=== PATIENT | female | born 1995 | race African-American/Black ===

== ENCOUNTER 2022-04-21 19:56 | Emergency (ER) | payer MEDICAID, SELFPAY ==
[2022-04-21 20:17] VITALS: BP 115/58; PULSE 78; RESP 16; TEMP 36.6; O2SAT 98
--- NOTE | 2022-04-21 20:28 | ED_ITS ---
HPI - General Adult General Time Seen by Provider: 20:28 Date Seen: 04/21/22 Chief complaint: Headache/Migraine Stated complaint: Migraine Time Seen by Provider: 04/21/22 20:13 Source: patient Mode of arrival: ambulatory Limitations: no limitations History of Present Illness HPI narrative: 26-year-old female who comes in today with headache. Patient has had an inte rmittent headache for the last 5 days. It is on the top of her head bilaterally. She has some lightheadedness with this. Nausea without vomiting. No photophobia or phonophobia. Says her is full full but no changes in hearing with some improvement although ibuprofen did not seem to help today. She does not have any injury. No fevers. Headache does not seem to be positional. Related Data Allergies Allergy/AdvReac Type Severity Reaction Status Date / Time bee venom protein (honey bee) Allergy Verified 04/21/22 20:22 Sulfa (Sulfonamide Allergy Verified 04/21/22 20:22 Antibiotics) Review of Systems Status of ROS: Reports: 10 or more systems reviewed and unremarkable except as noted in History and below PFSH PFSH Social History Smoking Status: Never smoker Do you use any of these nicotine containing products: None How often do you have a drink containing alcohol: never AUDIT-C Alcohol total score: 0 Non-prescribed substance use: denies use Exam Const: Vital Signs, click to edit/add: Vital Signs - 24 hr 04/21/22 20:17 Temperature 97.9 F Pulse Rate [Left B rachial] 78 Respiratory Rate 16 Blood Pressure [Le ft Upper Arm] 115/58 L Pulse Oximetry 98 Documenting provider has reviewed patient's vital signs: yes Common no rmals: no apparent distress, oriented x3, alert and well nourished HENMT: Common normals: normocephalic, head/scalp atraumatic, external ears normal and external nose normal Head and scalp: normocephalic and atraumatic Nose: external nose normal External ear: external ears normal Eye: Common normals: PERRL and conjunctivae normal Conjunctiva: conjunctiva(e) normal Pupil: PERRL Neck & C-Spine: Common normals: full ROM, no lymphadenopathy and supple Chest: Common normals: palpation of chest normal Resp: Common normals: normal respiratory effort and clear to auscultation bilaterally Auscultation: clear to auscultation bilaterally Cardio: Common normals: regular rate, regular rhythm and no murmurs Rate: regular rate Rhythm: regular rhythm GI: Common normals: Normal to inspection, nondistended, normoactive bowel sounds present, soft to palpation and non-tender Palpation: soft : Common normals: no CVA tenderness Bladder/kidney exam: no CVA tenderness Back & Pelvis: Common normals: no CVA tenderness and thoracic and lumbar spine normal to inspection Extremity: Common normals: normal to inspection, full ROM and no pedal edema Neuro: Common normals: oriented x3, CN's II-XII intact bilaterally and no focal motor deficits Sensorium/orientation: alert Psych: Common normals: mental status grossly normal Skin: Common normals: no rashes or lesions noted General skin exam: no rashes or lesions noted Course Vital Signs Vital signs: Initial Vital Signs Temperature 97.9 F 04/21/22 20:17 Temperature Source Temporal Artery Scan 04/21/22 20:17 Pulse Rate 78 04/21/22 20:17 Pulse Rhythm 04/21/22 20:17 Respiratory Rate 16 04/21/22 20:17 Blood Pressure 115/58 L 04/21/22 20:17 Blood Pressure Mean 77 04/21/22 20:17 Blood Pressure Position Sitting 04/21/22 20:17 Pulse Oximetry 98 04/21/22 20:17 Oxygen Delivery Method 04/21/22 20:17 Vital Signs Temperature 97.9 F 04/21/22 20:17 Pulse Rate 78 04/21/22 20:17 Respiratory Rate 16 04/21/22 20:17 Blood Pressure 115/58 L 04/21/22 20:17 Pulse Oximetry 98 04/21/22 20:17 Temperature 97.9 F 04/21/22 20:17 Pulse Rate 78 04/21/22 20:17 Respiratory Rate 16 04/21/22 20:17 Blood Pressure 115/58 L 04/21/22 20:17 Pulse Oximetry 98 04/21/22 20:17 Medical Decision Making MDM Narrative Medical decision making narrative: Patient seen and examined, prior records are reviewed. Differential diagnosis includes but not limited to migraine, intracranial pathology, meningitis, encephalitis. Patient presents with 5 days of headache. Intermittent, no red flag symptoms. No neurologic findings. Toradol, Benadryl, and Compazine are ordered. Patient has had prior similar headaches but this one has been more consistent. No indication imaging at this time. Medical Records Medical records reviewed: Yes I reviewed the patient's medical records Lab Data Lab results reviewed: Yes I reviewed the patient's lab results Discharge Plan Discharge Clinical Impression: Headache Patient Disposition: Home, Self-Care Condition: Improved Instructions: Acute Headache (ED) Additional Instructions: Follow-up with your primary care doctor this week Activity Level: No Restrictions Discharge Diet: Regular Stand Alone Forms: [employer] Info Instructions
[2022-04-21] MEDS: diphenhydrAMINE 50 MG/ML inj 25 MG IVP (20:49)
[2022-04-21] MEDS: KETOROLAC 15 MG/ML inj IVP (20:50)
[2022-04-21] MEDS: 0.9 % SODIUM CHLORIDE 500 ML 500 ML IV (20:52)
[2022-04-21] MEDS: dexAMETHasone 10 MG/ML inj IVP (20:52)
[2022-04-21] MEDS: PROCHLORPERAZINE 5 MG/ML VIAL 10 MG IV (20:53)
[2022-04-21 22:11] VITALS: BP 122/71; PULSE 68; RESP 16; TEMP 36.7
== END 2022-04-21 22:11 | disposition home or self-care (01) ==
LOC: ED 21:52
PROVIDERS: Emergency Provider Family Medicine
DX: R51.9 Headache, unspecified (principal)
CPT/HCPCS: 96374; 96375; 99283; 99284; J0780; J1100; J1200; J1885; J7120

== ENCOUNTER 2022-05-05 15:51 | Emergency (ER) | payer MEDICAID, SELFPAY ==
[2022-05-05 16:01] VITALS: BP 130/88; PULSE 95; RESP 18; TEMP 37; O2SAT 96; BMI 30.2
--- NOTE | 2022-05-05 16:07 | ED_ITS ---
HPI - General Adult General Time Seen by Provider: 16:07 Date Seen: 05/05/22 Chief complaint: Syncope/Fainted Stated complaint: syncope Time Seen by Provider: 05/05/22 16:07 Source: patient Mode of arrival: ambulatory Limitations: no limitations History of Present Illness HPI narrative: 26-year-old female who comes in today with a syncopal episode. He was cleaning, became lightheaded with ?spots in front of the eyes and passed out. Hit the back of her head on the floor. Denies preceding lightheadedness or chest pain. Denies recent cough, runny nose, sore throat, nausea, vomiting, diarrhea. Has been eating and drinking normally. Does note about 3 weeks of headache for which she was previously seen in the emergency department. This on the top of the head. No new medications. Denies possibility of with last Period six days ago. Related Data Home Medications Medication Instructions Recorded Confirmed fluticasone propionate 50 INTRANASAL 05/05/22 mcg/actuation nasal spray,suspension Allergies Allergy/AdvReac Type Severity Reaction Status Date / Time bee venom protein (honey bee) Allergy Verified 04/21/22 20:22 Sulfa (Sulfonamide Allergy Verified 04/21/22 20:22 Antibiotics) Review of Systems Status of ROS: Reports: 10 or more systems reviewed and unremarkable except as noted in History and below PFSH PFSH Social History Smoking Status: Never smoker Do you use any of these nicotine containing products: None How often do you have a drink containing alcohol: never AUDIT-C Alcohol total score: 0 Non-prescribed substance use: denies use Exam Const: Vital Signs, click to edit/add: Vital Signs - 24 hr 05/05/22 16:01 05/05/22 16:42 Temperature 98.6 F Pulse Rate [Right Pulse Oximeter] 95 68 Respiratory Rate 18 18 Blood Pressure [Ri ght Upper Arm] 130/88 105/61 Pulse Oximetry 96 98 Documenting provider has reviewed patient's vital signs: yes Common normals: no apparent distress, oriented x3, alert and well nourished HENMT: Common normals: normocephalic, head/scalp atraumatic, external ears normal and external nose normal Head and scalp: normocephalic and atraumatic Nose: external nose normal External ear: external ears normal Eye: Common normals: PERRL and conjunctivae normal Conjunctiva: conjunctiva(e) normal Pupil: PERRL Neck & C-Spine: Common normals: full ROM, no lymphadenopathy and supple Chest: Common normals: palpation of chest normal Resp: Common normals: normal respiratory effort and clear to auscultation b ilaterally Auscultation: clear to auscultation bilaterally Cardio: Common normals: regular rate, regular rhythm and no murmurs Rate: regular rate Rhythm: regular rhythm GI: Common normals: Normal to inspection, nondistended, normoactive bowel sounds present, soft to palpation and non-tender Palpation: soft : Common normals: no CVA tenderness Bladder/kidney exam: no CVA tenderness Back & Pelvis: Common normals: no CVA tenderness and thoracic and lumbar spine normal to inspection Extremity: Common normals: normal to inspection, full ROM and no pedal edema Neuro: Common normals: oriented x3, CN's II-XII intact bilaterally and no focal motor deficits Sensorium/orientation: alert Psych: Common normals: mental status grossly normal Skin: Common normals: no rashes or lesions noted General skin exam: no rashes or lesions noted Course Reevaluation(s) Reevaluation #1: Labs reassuring, EKG is normal. Heart rate improved after fluids. test is negative, head CT is negative. No acute cause for syncope nor acute injury related to syncope found based on testing today. Patient is stable for discharge. Time: 17:08 Vital Signs Vital signs: Initial Vital Signs Temperature 98.6 F 05/05/22 16:01 Temperature Source Temporal Artery Scan 05/05/22 16:01 Pulse Rate 95 05/05/22 16:01 Respiratory Rate 18 05/05/22 16:01 Blood Pressure 130/88 05/05/22 16:01 Blood Pressure Mean 102 05/05/22 16:01 Blood Pressure Position Sitting 05/05/22 16:01 Pulse Oximetry 96 05/05/22 16:01 Oxygen Delivery Method 05/05/22 16:01 Vital Signs Temperature 98.6 F 05/05/22 16:01 Pulse Rate 95 05/05/22 16:01 Respiratory Rate 18 05/05/22 16:01 Blood Pressure 130/88 05/05/22 16:01 Pulse Oximetry 96 05/05/22 16:01 Temperature 98.6 F 05/05/22 16:01 Pulse Rate 68 05/05/22 16:42 Respiratory Rate 18 05/05/22 16:42 Blood Pressure 105/61 05/05/22 16:42 Pulse Oximetry 98 05/05/22 16:42 Medical Decision Making MDM Narrative Medical decision making narrative: Patient seen and examined, prior records reviewed. Differential diagnosis includes but not limited to dysrhythmia, electrolyte disturbance, anemia, vasovagal episode, dehydration. Patient presents with syncopal episode. No preceding symptoms. She has had headache for about the last 3 weeks, no prior imaging for this. Labs, IV fluids, EKG, and head CT are ordered. Unlikely that this represents intracranial pathology and patient has no external signs of trauma, CT is ordered for ongoing headache for the last 3 weeks. Medical Records Medical records reviewed: Yes I reviewed the patient's medical records Lab Data Lab results reviewed: Yes I reviewed the patient's lab results Labs: Lab Results 05/05/22 05/05/22 05/05/22 Range/Units 16:30 16:30 16:30 WBC 4.99 (4.50-11.00) K/uL RBC 4.55 (4.00-5.20) m/uL Hgb 12.0 (12.0-16.0) gm/dL Hct 37.5 (33.0-51.0) % MCV 82 (80-100) fL MCH 26 (26-34) pg MCHC 32 (32-36) gm/dL RDW Coeff of [place] 13.4 (11.5-15.5) % Plt Count 331 (140-440) K/uL Neut % (Auto) 56.9 (42.0-72.0) % Lymph % (Auto) 35.9 (20-44) % [place] % (Auto) 5.6 (0.0-11.0) % Eos % (Auto) 0.4 (0.0-7.0) % Baso % (Auto) 0.6 (0.0-3.0) % Neut # (Auto) 2.84 (1.7-7.0) K/uL Lymph # (Auto) 1.79 (0.90-2.90) K/uL [place] # (Auto) 0.30 (0.00-0.90) K/UL Eos # (Auto) 0.02 (0.00-0.50) K/uL Baso # (Auto) 0.03 (0.00-0.30) K/uL Abs Immat Gran (auto) 0.03 (0.00-0.30) K/uL Sodium 138 (135-149) mmol/L Potassium 3.8 (3.6-5.1) mmol/L Chloride 104 (96-114) mmol/L Carbon Dioxide 31 (20-32) mmol/L BUN 9 (5-24) mg/dL Creatinine 0.7 (0.5-1.5) mg/dL Estimated Creat Clear 115.01 Estimated GFR 123 ml/min Glucose 97 (60-115) mg/dL Calcium 9.0 (8.4-10.6) mg/dL HCG, Qual Negative (Negative) Imaging Data CT scan - head: Attestation: I have reviewed the pertinent imaging results. My impression: No acute intracranial findings Radiologist's impression: Agree ECG Data Attestation: I personally reviewed and interpreted this ECG as follows: Prior ECG tracings: not available for review Interpretation: Performed at 4:39 p.m. demonstrates sinus rhythm with sinus arrhythmia rate 72, no acute ST elevations or depressions, normal intervals, normal axis, QTC 442, IL 132. No prior for comparison. Discharge Plan Discharge Clinical Impression: Headache, Syncope Patient Disposition: Home, Self-Care Condition: Stable Instructions: Syncope (ED) Additional Instructions: Follow-up with your primary care provider this week Activity Level: No Restrictions Discharge Diet: Regular Prescriptions: No Action fluticasone propionate 50 mcg/actuation spray,suspension INTRANASAL 0RF Label Comments: SHAKE LIQUID AND USE 1 TO 2 SPRAYS IN EACH NOSTRIL EVERY DAY Follow Up/Referrals: Provider,Not a Local [Referring] - Stand Alone Forms: [employer] Info Instructions
--- NOTE | 2022-05-05 16:18 | CRLHL7_ITS ---
For Patients: As a result of the Cures Act, medical imaging exams and procedure reports are released immediately into your electronic medical record. You may view this report before your referring provider. If you have questions, please contact your health care provider. DATE: 05/05/2022. CLINICAL HISTORY: Fall, syncope. TECHNIQUE: Standard helical CT image acquisition of the brain was performed. COMPARISON: None available. FINDINGS: There is no intracranial hemorrhage. No extra-axial collection, mass effect, or midline shift. [place]-white matter differentiation is preserved. Ventricles are normal in size and morphology for patient age. No displaced calvarial fracture. The orbits are unremarkable. The paranasal sinuses are unremarkable. The mastoid air cells are unremarkable. The soft tissues are unremarkable. IMPRESSION: No CT evidence of acute intracranial abnormality or closed head injury. Please note that all CT scans at this facility use dose modulation, iterative reconstruction, and/or weight-based dosing when appropriate to reduce radiation dose to as low as reasonably achievable. Dictated by Humberto Dai MD @ 05/05/2022 5:03:36 PM (Electronically Signed)
[2022-05-05 16:39] LABS: Basophils Absolute Auto 0.03 K/uL (0.00-0.30); Basophils Percent Auto 0.6 % (0.0-3.0); Eosinophils Absolute Auto 0.02 K/uL (0.00-0.50); Eosinophils Percent Auto 0.4 % (0.0-7.0); Hematocrit 37.5 % (33.0-51.0); Immature Granulocytes Abs Auto 0.03 K/uL (0.00-0.30); Lymphocytes Absolute Auto 1.79 K/uL (0.90-2.90); Lymphocytes Percent Auto 35.9 % (20-44); Mean Corpuscular HGB Conc 32 gm/dL (32-36); Mean Corpuscular Hemoglobin 26 pg (26-34); Mean Corpuscular Volume 82 fL (80-100); Monocytes Percent Auto 5.6 % (0.0-11.0); Neutrophils Absolute Auto 2.84 K/uL (1.7-7.0); Neutrophils Percent Auto 56.9 % (42.0-72.0); Platelet Count* 331 K/uL (140-440); RDW Coefficient of Variation % 13.4 % (11.5-15.5); Red Blood Count 4.55 m/uL (4.00-5.20); White Blood Count* 4.99 K/uL (4.50-11.00)
[2022-05-05 16:42] VITALS: BP 105/61; PULSE 68; RESP 18; O2SAT 98
[2022-05-05 16:45] LABS: Slide Review Reflex No
[2022-05-05] MEDS: 0.9 % SODIUM CHLORIDE 1000 ml 1,000 ML IV (16:45)
[2022-05-05 16:56] LABS: Chloride* 104 mmol/L (96-114); Potassium* 3.8 mmol/L (3.6-5.1); Sodium* 138 mmol/L (135-149)
[2022-05-05 16:59] LABS: Blood Urea Nitrogen* 9 mg/dL (5-24); Carbon Dioxide* 31 mmol/L (20-32); Creatinine* 0.7 mg/dL (0.5-1.5); Est. Creatinine Clearance* 115.01; Estimated Glomerular Filt Rate 123 ml/min; Glucose* 97 mg/dL (60-115); HCG Qualitative Serum* Negative (Negative)
[2022-05-05 17:00] VITALS: BP 100/60; PULSE 64; RESP 18; O2SAT 99
[2022-05-05 17:30] VITALS: BP 100/60; PULSE 62; O2SAT 97
== END 2022-05-05 18:07 | disposition home or self-care (01) ==
LOC: ED 16:54
PROVIDERS: Emergency Provider Family Medicine; PCP Physician Assistant
DX: R55 Syncope and collapse (principal); R51.9 Headache, unspecified
CPT/HCPCS: 36415; 70450; 80048; 84703; 85025; 93005; 96360; 99284; J7030

== ENCOUNTER 2022-12-30 16:02 | Emergency (ER) | payer MEDICAID, SELFPAY ==
[2022-12-30] VITALS (9 sets, daily range): BP systolic 106–120; BP diastolic 59–72; PULSE 77–95; RESP 16; TEMP 36.8; O2SAT 97–99; BMI 30.8
--- NOTE | 2022-12-30 17:13 | ED_ITS ---
HPI - General Adult General Chief complaint: Nausea/Vomiting Stated complaint: Nausea, upper stomach pain, 6wks Time Seen by Provider: 12/30/22 16:27 History of Present Illness HPI narrative: This 27-year-old female comes in reporting upper epigastric abdominal pain and where the past 2 or 3 days or so. She states that the pain seems to come and go. She has associated loss of appetite and nausea symptoms. She states that she is about 6 weeks and has not been to her 1st OB appointment yet. She states that the pain is not constant but comes and goes. She denies having any lower abdominal pain or vaginal discharge. She reports that food seems to make her symptoms worse. Related Data Home Medications Medication Instructions Recorded Confirmed fluticasone propionate 50 intranasal 05/05/22 mcg/actuation nasal spray,suspension fexofenadine 180 mg tablet 180 mg PO Q24H 06/20/22 12/30/22 (Evelia Allergy) sertraline 50 mg tablet 50 mg PO Q24H 06/20/22 12/30/22 Previous Rx's Medication Instructions Recorded ondansetron 4 mg disintegrating 4 mg PO Q6H #20 tabs 12/30/22 tablet pantoprazole 20 mg tablet,delayed 20 mg PO DAILY #5 tabs 12/30/22 release (Protonix) Allergies Allergy/AdvReac Type Severity Reaction Status Date / Time bee venom protein (honey bee) Allergy Severe Anaphylaxis Verified 12/30/22 16:31 Sulfa (Sulfonamide Allergy Unknown Verified 12/30/22 16:31 Antibiotics) Review of Systems Status of ROS: Reports: 10 or more systems reviewed and unremarkable except as noted in History and below Narrative: Constitutional: No fevers, no weight gain or loss. Eyes: No discharge. No vision changes. HENT: No congestion, no sore throat, no ear pain. Cardiovascular: No chest pain, no palpitations. Respiratory: No shortness of breath, no wheezes, no cough. Gastrointestinal: No vomiting, no diarrhea. Upper epigastric abdominal pain with associated nausea. Genitourinary: No dysuria, no hematuria. Musculoskeletal: Normal range of motion. Skin: No rashes, no pruritis. Neurological: No dizziness, weakness, sensory change, speech change. Endo/Heme/Allergies: No bruising or bleeding. No polydipsia. Pysch: no suicidality, no anxiety, no insomnia. All other systems reviewed and are negative. PFSH PFS Social History Smoking Status: Former smoker Do you use any of these nicotine containing products: None Second hand tobacco smoke exposure: No How often do you have a drink containing alcohol: never AUDIT-C Alcohol total score: 0 Non-prescribed substance use: denies use Exam Narrative: Exam Narrative: Constitutional: Well-developed, well-nourished, no acute distress. HEENT: Normocephalic, atraumatic. Neck: Normal range of motion. Nontender. Supple. Heart: Regular. No murmurs. Normal rate. Intact distal pulses. Lungs: Clear to auscultation. No chest discomfort. No wheezes, rhonchi, or rales. Abdomen: Normal bowel sounds. Mild tenderness in the upper epigastric region. No rebound tenderness. Genitalia: Deferred. Back: No midline tenderness. Normal range of motion. Extremities: Normal range of motion. No injury. Skin: Intact. No rash. Warm. No erythema or pallor. Neurologic: No altered sensation. No weakness. Alert and oriented. Psychiatric: No suicidality. No anxiety or depression. No insomnia. Nursing notes and vitals signs are reviewed. Const: Vital Signs, click to edit/add: Vital Signs - 24 hr 12/30/22 16:25 Temperature 98.2 F Pulse Rate [Pulse Oximeter] 81 Respiratory Rate 16 Blood Pressure [Le ft Upper Arm] 110/59 L Pulse Oximetry 98 Oxygen Delivery Me thod Room Air Course Vital Signs Vital signs: Initial Vital Signs Temperature 98.2 F 12/30/22 16:25 Temperature Source Temporal Artery Scan 12/30/22 16:25 Pulse Rate 81 12/30/22 16:25 Respiratory Rate 16 12/30/22 16:25 Blood Pressure 110/59 L 12/30/22 16:25 Blood Pressure Mean 76 12/30/22 16:25 Blood Pressure Position Supine 12/30/22 16:25 Pulse Oximetry 98 12/30/22 16:25 Oxygen Delivery Method Room Air 12/30/22 16:25 Vital Signs Temperature 98.2 F 12/30/22 16:25 Pulse Rate 81 12/30/22 16:25 Respiratory Rate 16 12/30/22 16:25 Blood Pressure 110/59 L 12/30/22 16:25 Pulse Oximetry 98 12/30/22 16:25 Oxygen Delivery Method Room Air 12/30/22 16:25 Temperature 98.2 F 12/30/22 16:25 Pulse Rate 81 12/30/22 16:25 Respiratory Rate 16 12/30/22 16:25 Blood Pressure 110/59 L 12/30/22 16:25 Pulse Oximetry 98 12/30/22 16:25 Oxygen Delivery Method Room Air 12/30/22 16:25 Medical Decision Making MDM Narrative Medical decision making narrative: This patient is approximately 6 weeks . She reports intermittent upper epigastric pain with associated nausea. She does arrive with normal vital signs and currently her exam is rather benign. I did use bedside ultrasound to evaluate her gallbladder and saw normal anatomy with no sign of gallbladder disease. I did also take a quick look at her uterus which does show an intrauterine gestational sac. I did discuss other lab and imaging options with the patient which were declined in a process of shared decision making. The patient did receive a prescription for Protonix and Zofran. I advised her to follow-up for her 1st OB appointment or return if worsening symptoms happen. Discharge Plan Discharge Clinical Impression: , Abdominal pain Patient Disposition: Home, Self-Care Condition: Stable Additional Instructions: Take medication as needed and indicated. Follow up with MD for 1st OB appoin tment. Return if worsening symptoms happen. Prescriptions: New pantoprazole [Protonix] 20 mg tablet,delayed release (DR/EC) 20 mg PO DAILY Qty: 5 2RF ondansetron 4 mg tablet,disintegrating 4 mg PO Q6H Qty: 20 0RF No Action sertraline 50 mg tablet 50 mg PO Q24H fexofenadine [Evelia Allergy] 180 mg tablet 180 mg PO Q24H fluticasone propionate 50 mcg/actuation spray,suspension INTRANASAL Hold Instructions: Order Change Patient Comments: SHAKE LIQUID AND USE 1 TO 2 SPRAYS IN EACH NOSTRIL EVERY DAY Follow Up/Referrals: Giselle Ruiz PA [Primary Care Provider] - Stand Alone Forms: [facility] Info Instructions Procedures Ultrasound Biliary exam #1: Anatomical areas examined: gallbladder, long and short axis Indications: RUQ/epigastric pain Exam type: limited abdominal ultrasound; RUQ Impression: normal exam Description/Findings: No sign of gallbladder disease.
== END 2022-12-30 17:51 | disposition home or self-care (01) ==
PROVIDERS: Emergency Provider Emergency Medicine Emergency Medical Services; PCP Physician Assistant
DX: R10.13 Epigastric pain (principal); Z3A.01 Less than 8 weeks gestation of pregnancy
CPT/HCPCS: 76705; 99283; 99284

== ENCOUNTER 2023-01-01 23:19 | Emergency (ER) | payer MEDICAID, SELFPAY ==
[2023-01-01 23:27] VITALS: BP 133/81; PULSE 89; RESP 18; TEMP 36.7; O2SAT 99; BMI 31.0
[2023-01-01 23:30] VITALS: O2SAT 99
[2023-01-02] MEDS: ONDANSETRON 2 MG/ML inj 4 MG IVP (00:02)
[2023-01-02] MEDS: 0.9 % SODIUM CHLORIDE 1000 ml 1,000 ML IV (00:02)
[2023-01-02] MEDS: PANTOPRAZOLE SODIUM 40 MG INJ IVP (00:05)
--- NOTE | 2023-01-02 00:05 | ED.GENADULT ---
HPI - General Adult General Time Seen by Provider: 00:05 Date Seen: 01/02/23 Chief complaint: Nausea/Vomiting Stated complaint: 6wks , vomiting blood Time Seen by Provider: 01/01/23 23:57 Source: patient, family, RN notes reviewed and old records reviewed Mode of arrival: ambulatory Limitations: no limitations History of Present Illness HPI narrative: 27-year-old who presents today with vomiting. Patient was seen a couple days ago with nausea and abdominal pain, at that time was given fluids and Zofran with improvement of symptoms. Labs including basic panel and CBC done at that time were reassuring, bedside ultrasound demonstrated normal appearing gallbladder and intrauterine gestational sac. Patient presents today with vomiting with a small amount of blood in the emesis. Vomiting started about an hour prior to coming emergency department. She took Zofran this morning but nothing this evening. She notes that she was constipated but took a laxative and has had a bowel movement today. She does not have any upper abdominal pain or right-sided abdominal pain, does have some generalized abdominal pain that she relates to vomiting. Denies vaginal bleeding. She was also prescribed Protonix at her last visit has been taking that daily Related Data Home Medications Medication Instructions Recorded Confirmed sertraline 50 mg tablet 50 mg PO Q24H 06/20/22 01/01/23 Previous Rx's Medication Instructions Recorded ondansetron 4 mg disintegrating 4 mg PO Q6H #20 tabs 12/30/22 tablet pantoprazole 20 mg tablet,delayed 20 mg PO DAILY #5 tabs 12/30/22 release (Protonix) pantoprazole 40 mg tablet,delayed 40 mg PO DAILY #30 tabs 01/02/23 release (Protonix) sucralfate 1 gram tablet (Carafate) 1 g PO QID #20 tabs 01/02/23 Allergies Allergy/AdvReac Type Severity Reaction Status Date / Time bee venom protein (honey bee) Allergy Severe Anaphylaxis Verified 01/01/23 23:31 Sulfa (Sulfonamide Allergy Unknown Runs in Verified 01/01/23 23:31 Antibiotics) the Family Review of Systems Status of ROS: Reports: 10 or more systems reviewed and unremarkable except as noted in History and below [facility] Medical History (Updated 01/02/23 @ 00:33 by Nick Bolaños RN) Depression ?F32.A - Depression, unspecified (ICD-10) Migraine headache ?G43.909 - Migraine, unspecified, not intractable, without status migrainosus (ICD-10) STD (sexually transmitted disease) ?A64 - Unspecified sexually transmitted disease (ICD-10) Tibia/fibula fracture ?S82.209A - Unspecified fracture of shaft of unspecified tibia, initial encounter for closed fracture (ICD-10) ?S82.409A - Unspecified fracture of shaft of unspecified fibula, initial encounter for closed fracture (ICD-10) Social History Smoking Status: Former smoker Do you use any of these nicotine containing products: None Second hand tobacco smoke exposure: No How often do you have a drink containing alcohol: never How often do you have six or more drinks on one occasion: Never AUDIT-C Alcohol total score: 0 Non-prescribed substance use: denies use service: No Exam Narrative: Exam Narrative: General: Well-developed and well-nourished, no acute distress Head: Atraumatic and normocephalic Eyes: Pupils are equal reactive, extraocular motions intact, conjunctiva clear ENT: External nose and ears are normal, posterior pharynx without erythema or exudate Neck: No midline cervical tenderness, full spontaneous range of motion the neck, trachea midline, no adenopathy Heart: Regular rate and rhythm no murmurs or thrills Lungs: Clear to auscultation bilaterally without wheezes or crackles Abdomen: Soft, nontender, nondistended with active bowel sounds Musculoskeletal: No tenderness, deformity, or edema Neurologic: Awake, alert, and oriented x3, no gross focal neurologic deficits, cranial nerves intact as tested Psych: Mood and affect are appropriate Skin: No rashes Const: Vital Signs, click to edit/add: Vital Signs - 24 hr 01/01/23 23:27 01/02/23 00:09 01/02/23 00:36 Temperature 98.0 F 98.0 F 98.0 F Pulse Rate 77 Pulse Rate [Right Pulse Oximeter] 89 77 Respiratory Rate 18 16 16 Blood Pressure 115/63 Blood Pressure [Ri ght Upper Arm] 133/81 115/63 Pulse Oximetry 99 98 98 Oxygen Delivery Me thod Room Air Room Air 01/02/23 00:32 01/02/23 01:01 01/01/23 23:30 Temperature Pulse Rate 79 78 Pulse Rate [Right Pulse Oximeter] Respiratory Rate 16 16 Blood Pressure 108/63 104/58 L Blood Pressure [Ri ght Upper Arm] Pulse Oximetry 99 99 99 Oxygen Delivery Tn thod Course Course Hospital Course: Patient seen and examined, reviewed of prior emergency department records from December 30 as summarized in HPI. Patient presents today with nausea and vomiting with small volume blood. She has had sensation of fullness in her throat. On exam here, vitals stable, awake and alert, no abdominal tenderness. Labs including basic panel, CBC, hepatic function panel, and lipase are ordered. Symptoms are most consistent with reflux and gastritis, consider also Rhea-Ladd tear. Cholecystitis, biliary colic, pancreatitis less likely but will evaluate for these discuss source of patient's abdominal discomfort and nausea. No vaginal bleeding or low abdominal pain and cramping to suggest miscarriage. Zofran, Protonix, fluids are ordered. If labs are reassuring, patient be discharged with twice daily Protonix, continue Zofran, and follow up with primary care. Reevaluation(s) Reevaluation #1: Labs independently interpreted by me demonstrates stable hemoglobin, reassuring basic panel, reassuring comprehensive panel, normal lipase. No evidence for biliary colic, pancreatitis, acute cholecystitis. Will complete fluids, plan to discharge with outpatient follow-up. Updated patient and significant other with results, diagnosis, and plan. She reports minimal improvement in her nausea after Zofran. Reglan IV will be given. Time: 00:41 Reevaluation #2: Feels better after Reglan and stable for discharge Time: 01:46 Vital Signs Vital signs: Initial Vital Signs Temperature 98.0 F 01/01/23 23:27 Temperature Source Temporal Artery Scan 01/01/23 23:27 Pulse Rate 89 01/01/23 23:27 Respiratory Rate 18 01/01/23 23:27 Blood Pressure 133/81 01/01/23 23:27 Blood Pressure Mean 98 01/01/23 23:27 Blood Pressure Position Sitting 01/01/23 23:27 Pulse Oximetry 99 01/01/23 23:27 Oxygen Delivery Method Room Air 01/01/23 23:27 Vital Signs Temperature 98.0 F 01/01/23 23:27 Pulse Rate 89 01/01/23 23:27 Respiratory Rate 18 01/01/23 23:27 Blood Pressure 133/81 01/01/23 23:27 Pulse Oximetry 99 01/01/23 23:27 Oxygen Delivery Method Room Air 01/01/23 23:27 Temperature 98.0 F 01/02/23 00:36 Pulse Rate 78 01/02/23 01:01 Respiratory Rate 16 01/02/23 01:01 Blood Pressure 104/58 L 01/02/23 01:01 Pulse Oximetry 99 01/02/23 01:01 Oxygen Delivery Method Room Air 01/02/23 00:36 Medical Decision Making Medical Records Medical records reviewed: Yes I reviewed the patient's medical records Lab Data Lab results reviewed: Yes I reviewed the patient's lab results Labs: Lab Results 01/02/23 Range/Units 00:05 WBC 9.40 (4.50-11.00) K/uL RBC 4.33 (4.00-5.20) m/uL Hgb 11.6 L (12.0-16.0) gm/dL Hct 35.6 (33.0-51.0) % MCV 82 (80-100) fL MCH 27 (26-34) pg MCHC 33 (32-36) gm/dL RDW Coeff of Juancho 13.1 (11.5-15.5) % Plt Count 331 (140-440) K/uL Neut % (Auto) 75.6 H (42.0-72.0) % Lymph % (Auto) 18.0 L (20-44) % Lucas % (Auto) 5.5 (0.0-11.0) % Eos % (Auto) 0.2 (0.0-7.0) % Baso % (Auto) 0.3 (0.0-3.0) % Neut # (Auto) 7.10 H (1.7-7.0) K/uL Lymph # (Auto) 1.70 (0.90-2.90) K/uL Lucas # (Auto) 0.50 (0.00-0.90) K/UL Eos # (Auto) 0.02 (0.00-0.50) K/uL Baso # (Auto) 0.03 (0.00-0.30) K/uL Sodium 135 (135-149) mmol/L Potassium 3.6 (3.6-5.1) mmol/L Chloride 103 (96-114) mmol/L Carbon Dioxide 21 (20-32) mmol/L BUN 7 (5-24) mg/dL Creatinine 0.6 (0.5-1.5) mg/dL Estimated Creat Clear 133.01 Estimated GFR 127 ml/min Glucose 99 (60-115) mg/dL Calcium 9.0 (8.4-10.6) mg/dL Total Bilirubin 0.5 (0.1-1.5) mg/dL Direct Bilirubin 0.1 (0.0-0.5) mg/dL AST 20 (12-35) U/L ALT 20 (4-35) U/L Alkaline Phosphatase 64 (40-150) U/L Total Protein 7.7 (6.0-8.3) g/dL Albumin 4.3 (3.3-5.0) g/dL Lipase 63 (23-300) U/L Discharge Plan Discharge Clinical Impression: , Gastroesophageal reflux disease Patient Disposition: Home, Self-Care Condition: Stable Instructions: Nausea and Vomiting in (ED), Diet for Stomach Ulcers and Gastritis (ED), GERD (Gastroesophageal Reflux Disease) (DC) Additional Instructions: Take high-dose Protonix daily as prescribed. Continue Zofran as needed. Take care of it for the next 5 days as well. Activity Level: No Restrictions Discharge Diet: Regular Prescriptions: New pantoprazole [Protonix] 40 mg tablet,delayed release (DR/EC) 40 mg PO DAILY Qty: 30 0RF sucralfate [Carafate] 1 gram tablet 1 g PO QID Qty: 20 0RF No Action sertraline 50 mg tablet 50 mg PO Q24H pantoprazole [Protonix] 20 mg tablet,delayed release (DR/EC) 20 mg PO DAILY Qty: 5 2RF ondansetron 4 mg tablet,disintegrating 4 mg PO Q6H Qty: 20 0RF Follow Up/Referrals: Giselle Ruiz PA [Primary Care Provider] - Stand Alone Forms: [employer] Info Instructions
[2023-01-02 00:09] VITALS: BP 115/63; PULSE 77; RESP 16; TEMP 36.7; O2SAT 98
[2023-01-02 00:15] LABS: Basophils Absolute Auto 0.03 K/uL (0.00-0.30); Basophils Percent Auto 0.3 % (0.0-3.0); Eosinophils Absolute Auto 0.02 K/uL (0.00-0.50); Eosinophils Percent Auto 0.2 % (0.0-7.0); Hematocrit 35.6 % (33.0-51.0); Hemoglobin* 11.6 gm/dL (12.0-16.0); Immature Granulocytes Abs Auto 0.04 K/uL (0.00-0.30); Immature Granulocytes Pct Auto 0.4 %; Mean Corpuscular HGB Conc 33 gm/dL (32-36); Mean Corpuscular Hemoglobin 27 pg (26-34); Mean Corpuscular Volume 82 fL (80-100); Monocytes Percent Auto 5.5 % (0.0-11.0); Neutrophils Percent Auto 75.6 % (42.0-72.0); Platelet Count* 331 K/uL (140-440); RDW Coefficient of Variation % 13.1 % (11.5-15.5); Red Blood Count 4.33 m/uL (4.00-5.20)
[2023-01-02 00:17] LABS: Slide Review Reflex No
--- OUTSIDE RECORDS SUMMARY | 2023-01-02 00:25 | XMS_ITS | Continuity of Care Document ---
Author Name Unknown Organization [facility] Address [address] [address] [place] [address] Phone Care Team Providers Care City Council Member Name Role Phone Unavailable Unavailable Unavailable Allergies, Adverse Reactions, Alerts Substance Reaction Status Criticality No Known allergies Medications Medication Instructions Dosage Effective Dates (start - stop) Status Comments Prilosec unknown take 20 mg every day - Active omeprazole 20 mg Cap, Delayed Release Take one capsule by mouth daily - Active Prilosec unknown every day - No Longer Active Procedures Procedure Date Offic Cons New/estab Mod-hi 60 07 Advance Directives Directive Yes / No Effective Date File Name No Information Encounters Encounter Description Practice Location Reason(s) For Visit Diagnoses Date Provider Providers Copied on Encounter Offic Cons New/estab Mod-hi 60 [facility], [address] [address], [place], [place], [id number], [place] tel:[phone] [facility] Vomiting Alone No Information Family History Family Member Type Diagnosis Age At Onset No Information Payers Payer name Insurance type Covered green party ID Authoriza tion(s) No Information Social History Type Description Quantity Date Captured Comments Sex Female Smoking Status No Information Chief Complaint And Reason For Visit No Information Reason For Referral Reason For Referral No Information Plan Of Treatment Date Type Action Status No Information History Of Present Illness Encounter Date Complaint History Of Prese nt Illness No Information Functional Status Date Functional Assessmen t No Information Medications Administered Medication Instructions Dosage Effective Dates (start - stop) Status Comments Prilosec unknown every day - No Longer Active Instructions Date Instruction Additional Infor mation No Information Assessments Type Assessment Date No Information Patient Care Teams Name Effective Dates (start - stop) Status Members No Information
[2023-01-02 00:31] LABS: Albumin* 4.3 g/dL (3.3-5.0); Chloride* 103 mmol/L (96-114)
[2023-01-02 00:32] VITALS: BP 108/63; PULSE 79; RESP 16; O2SAT 99
[2023-01-02 00:32] LABS: Potassium* 3.6 mmol/L (3.6-5.1); Sodium* 135 mmol/L (135-149)
[2023-01-02 00:33] LABS: Bilirubin Direct* 0.1 mg/dL (0.0-0.5); Bilirubin Total* 0.5 mg/dL (0.1-1.5); Total Protein* 7.7 g/dL (6.0-8.3)
[2023-01-02 00:34] LABS: Alanine Aminotransferase* 20 U/L (4-35); Alkaline Phosphatase* 64 U/L (40-150); Aspartate Amino Transferase* 20 U/L (12-35); Creatinine* 0.6 mg/dL (0.5-1.5); Est. Creatinine Clearance* 133.01; Estimated Glomerular Filt Rate 127 ml/min; Lipase* 63 U/L (23-300)
[2023-01-02 00:35] LABS: Blood Urea Nitrogen* 7 mg/dL (5-24); Carbon Dioxide* 21 mmol/L (20-32); Glucose* 99 mg/dL (60-115)
[2023-01-02 00:36] VITALS: BP 115/63; PULSE 77; RESP 16; TEMP 36.7; O2SAT 98
[2023-01-02] MEDS: METOCLOPRAMIDE HCL 5 MG/ML INJ 10 MG IVP (01:00)
[2023-01-02 01:01] VITALS: BP 104/58; PULSE 78; RESP 16; O2SAT 99
[2023-01-02 01:31] VITALS: BP 115/66; PULSE 84; RESP 16; O2SAT 96
[2023-01-02 01:54] VITALS: BP 115/63; PULSE 77; RESP 16; TEMP 36.7
== END 2023-01-02 01:55 | disposition home or self-care (01) ==
LOC: ED 01-02 00:23
PROVIDERS: Emergency Provider Family Medicine; PCP Physician Assistant
DX: O26.899 Other specified pregnancy related conditions, unspecified trimester (principal); K21.9 Gastro-esophageal reflux disease without esophagitis
CPT/HCPCS: 36415; 80048; 80076; 83690; 85025; 94761; 96374; 96375; 99284; C9113; J2405; J2765; J7030

== ENCOUNTER 2023-01-08 13:45 | Emergency (ER) | payer MEDICAID, SELFPAY ==
[2023-01-08 13:49] VITALS: BP 108/71; PULSE 85; RESP 18; TEMP 36.9; O2SAT 97; BMI 30.3
--- NOTE | 2023-01-08 14:34 | ED_ITS ---
HPI - General Adult General Chief complaint: Nausea/Vomiting Stated complaint: puking blood + 7weeks preg Time Seen by Provider: 01/08/23 13:50 History of Present Illness HPI narrative: This 27-year-old female is about 7 or 8 weeks and is having persistent vomiting. She also has some small amounts of blood in the vomit. She was seen twice in the past week or so in this emergency department with similar circumstances. Lab results and ultrasound images are all reassuring. The patient is taking Protonix, Zofran, and Reglan now. She does not report any lightheadedness. This is her 2nd . She is otherwise in good health. She does have a prior history of reflux symptoms. Related Data Home Medications Medication Instructions Recorded Confirmed sertraline 50 mg tablet 50 mg PO Q24H 06/20/22 01/01/23 Previous Rx's Medication Instructions Recorded ondansetron 4 mg disintegrating 4 mg PO Q6H #20 tabs 12/30/22 tablet pantoprazole 20 mg tablet,delayed 20 mg PO DAILY #5 tabs 12/30/22 release (Protonix) metoclopramide HCl 10 mg tablet 10 mg PO Q6H PRN nausea and 01/02/23 (Reglan) vomiting #20 tabs pantoprazole 40 mg tablet,delayed 40 mg PO DAILY #30 tabs 01/02/23 release (Protonix) sucralfate 1 gram tablet (Carafate) 1 g PO QID #20 tabs 01/02/23 ondansetron 4 mg disintegrating 4 mg PO Q6H #30 tabs 01/08/23 tablet prochlorperazine maleate 10 mg 10 mg PO Q6H PRN #15 tabs 01/08/23 tablet (Compazine) sucralfate 100 mg/mL oral 10 ml PO BID #400 mL 01/08/23 suspension (Carafate) Allergies Allergy/AdvReac Type Severity Reaction Status Date / Time bee venom protein (honey bee) Allergy Severe Anaphylaxis Verified 01/01/23 23:31 Sulfa (Sulfonamide Allergy Unknown Runs in Verified 01/01/23 23:31 Antibiotics) the Family Review of Systems Status of ROS: Reports: 10 or more systems reviewed and unremarkable except as noted in History and below Narrative: Constitutional: No fevers, no weight gain or loss. Eyes: No discharge. No vision changes. HENT: No congestion, no sore throat, no ear pain. Cardiovascular: No chest pain, no palpitations. Respiratory: No shortness of breath, no wheezes, no cough. Gastrointestinal: No abdominal pain, no diarrhea. Recurrent vomiting related to with some small amounts of blood present at times in the vomit. Genitourinary: No dysuria, no hematuria. Musculoskeletal: Normal range of motion. Skin: No rashes, no pruritis. Neurological: No dizziness, weakness, sensory change, speech change. Endo/Heme/Allergies: No bruising or bleeding. No polydipsia. Pysch: no suicidality, no anxiety, no insomnia. All other systems reviewed and are negative. [facility] Medical History (Updated 01/08/23 @ 14:52 by Jaron Jensen MD) Depression ?F32.A - Depression, unspecified (ICD-10) Migraine headache ?G43.909 - Migraine, unspecified, not intractable, without status migrainosus (ICD-10) STD (sexually transmitted disease) ?A64 - Unspecified sexually transmitted disease (ICD-10) Tibia/fibula fracture ?S82.209A - Unspecified fracture of shaft of unspecified tibia, initial encounter for closed fracture (ICD-10) ?S82.409A - Unspecified fracture of shaft of unspecified fibula, initial encounter for closed fracture (ICD-10) Social History Smoking Status: Former smoker Do you use any of these nicotine containing products: None Second hand tobacco smoke exposure: No How often do you have a drink containing alcohol: never How often do you have six or more drinks on one occasion: Never AUDIT-C Alcohol total score: 0 Non-prescribed substance use: denies use service: No Exam Narrative: Exam Narrative: Constitutional: Well-developed, well-nourished, no acute distress. HEENT: Normocephalic, atraumatic. Neck: Normal range of motion. Nontender. Supple. Heart: Regular. No murmurs. Normal rate. Intact distal pulses. Lungs: Clear to auscultation. No chest discomfort. No wheezes, rhonchi, or rales. Abdomen: Normal bowel sounds. Nontender. No rebound tenderness. Genitalia: Deferred. Back: No midline tenderness. Normal range of motion. Extremities: Normal range of motion. No injury. Skin: Intact. No rash. Warm. No erythema or pallor. Neurologic: No altered sensation. No weakness. Alert and oriented. Psychiatric: No suicidality. No anxiety or depression. No insomnia. Nursing notes and vitals signs are reviewed. Const: Vital Signs, click to edit/add: Vital Signs - 24 hr 01/08/23 13:49 Temperature 98.5 F Pulse Rate [Right Pulse Oximeter] 85 Respiratory Rate 18 Blood Pressure [Ri ght Upper Arm] 108/71 Pulse Oximetry 97 Oxygen Delivery Me thod Room Air Course Vital Signs Vital signs: Initial Vital Signs Temperature 98.5 F 01/08/23 13:49 Temperature Source Temporal Artery Scan 01/08/23 13:49 Pulse Rate 85 01/08/23 13:49 Respiratory Rate 18 01/08/23 13:49 Blood Pressure 108/71 01/08/23 13:49 Blood Pressure Mean 83 01/08/23 13:49 Blood Pressure Position Sitting 01/08/23 13:49 Pulse Oximetry 97 01/08/23 13:49 Oxygen Delivery Method Room Air 01/08/23 13:49 Vital Signs Temperature 98.5 F 01/08/23 13:49 Pulse Rate 85 01/08/23 13:49 Respiratory Rate 18 01/08/23 13:49 Blood Pressure 108/71 01/08/23 13:49 Pulse Oximetry 97 01/08/23 13:49 Oxygen Delivery Method Room Air 01/08/23 13:49 Temperature 98.5 F 01/08/23 13:49 Pulse Rate 85 01/08/23 13:49 Respiratory Rate 18 01/08/23 13:49 Blood Pressure 108/71 01/08/23 13:49 Pulse Oximetry 97 01/08/23 13:49 Oxygen Delivery Method Room Air 01/08/23 13:49 Medical Decision Making MDM Narrative Medical decision making narrative: This patient is about 7 weeks and has had persistent vomiting with some occasions of blood in the vomit. She arrives with normal vital signs. She has been taking Zofran and also has tried Reglan. She is also taking omeprazole. She did have evaluation for these same symptoms twice in the past week including labs and imaging. I did offer repeating these tests which the patient declined in a process of shared decision making. I did use bedside ultrasound to quickly reassure her with regard to her and took quick looks at her gallbladder, heart, and lungs. This was done as a screening test and no order was placed and no images were saved. The patient did received prescription for more tablets of Zofran. I also did prescribe Compazine. She has an OB appointment coming up within a week. Discharge Plan Discharge Clinical Impression: Hyperemesis gravidarum Patient Disposition: Home, Self-Care Condition: Stable Additional Instructions: Take medications as needed and indicated. Follow up with OB appointment as scheduled or return if worsening. Prescriptions: New prochlorperazine maleate [Compazine] 10 mg tablet 10 mg PO Q6H PRNQty: 15 0RF ondansetron 4 mg tablet,disintegrating 4 mg PO Q6H Qty: 30 0RF sucralfate [Carafate] 100 mg/mL suspension 10 ml PO BID Qty: 400 2RF No Action sertraline 50 mg tablet 50 mg PO Q24H pantoprazole [Protonix] 40 mg tablet,delayed release (DR/EC) 40 mg PO DAILY Qty: 30 0RF sucralfate [Carafate] 1 gram tablet 1 g PO QID Qty: 20 0RF metoclopramide HCl [Reglan] 10 mg tablet 10 mg PO Q6H PRN (Reason: nausea and vomiting) Qty: 20 0RF Rx Instructions: May take 1/2 or 1 tablet pantoprazole [Protonix] 20 mg tablet,delayed release (DR/EC) 20 mg PO DAILY Qty: 5 2RF ondansetron 4 mg tablet,disintegrating 4 mg PO Q6H Qty: 20 0RF Follow Up/Referrals: Giselle Ruiz PA [Primary Care Provider] - Stand Alone [facility]
== END 2023-01-08 15:05 | disposition home or self-care (01) ==
LOC: ED 15:00
PROVIDERS: Emergency Provider Emergency Medicine Emergency Medical Services; PCP Physician Assistant
DX: O21.0 Mild hyperemesis gravidarum (principal); Z3A.01 Less than 8 weeks gestation of pregnancy
CPT/HCPCS: 99282; 99283; 99284

== ENCOUNTER 2023-01-11 16:42 | Emergency (ER) | payer MEDICAID, SELFPAY ==
[2023-01-11] VITALS (15 sets, daily range): BP systolic 112–116; BP diastolic 61–76; PULSE 75–107; RESP 14; TEMP 36.3; O2SAT 96–99; BMI 29.9
--- NOTE | 2023-01-11 17:12 | ED_ITS ---
HPI - General Adult General Chief complaint: Nausea/Vomiting Stated complaint: 7 weeks, vomiting chunks of blood Time Seen by Provider: 01/11/23 16:43 Source: patient Mode of arrival: ambulatory Limitations: no limitations History of Present Illness HPI narrative: 27-year-old female making her 3rd visit to the emergency department in the past 9 days presents for continued complaints of nausea and vomiting, feeling like she is getting dehydrated again. She is currently 7-8 weeks as a . She admits that she has not been taking the Carafate as often as was recommended, but rather doubling up on a morning dose and not taking an evening dose. She was counseled now regarding this. She states that she started feeling increased nausea last night and has been vomiting frequently since 8:00 a.m. this morning, the past 9 hours. She has had frequent streaks of blood in her vomit, mucousy but it is increased today. She has not yet had a bowel movement. There was certainly no blood in her stools, no history of black tarry stools. Reports that she has been unable to hold down any solid food today. She is typically on a PPI, last dose was yesterday. She did not attempt to take her morning medications as she stated ?I would have just thrown them up?. She reports that she has been unable to hold down any fluids today and feels like she is getting dehydrated. She reports that she had nausea and vomiting for a few weeks in her 1st a few years ago. She now has a healthy 2-year-old in the remainder of her was uncomplicated. She has her upcoming visit on the of this month with the [facility] providers. She typically is prescribed Carafate twice daily, omeprazole once daily, Reglan as needed and she also has access to Zofran prescription. She did try taking Zofran under her tongue this morning at about 9:00 a.m. and it did not seem to help. No headache, no trauma or injury. She does not take any anticoagulants. She did not take any pictures of the blood in the vomit this morning but it was not denisha blood but rather small chunks of blood. No history of endoscopy. No fever, no trauma or injury. She has some mild epigastric discomfort but nothing in the right upper quadrant or lower abdomen. There is no vaginal bleeding. No history of bowel obstruction or GI surgeries. No dysuria. Past medical history notable for anxiety, does take a SSRI. No prior abdominal surgeries. Medications are reviewed, not taking exactly as would be recommended but these are noted. Socially with no pertinent travel or toxic exposures. ROS is notable for some fatigue but mainly for the nausea and vomiting and blood tinge as stated above. Otherwise denies times 12 systems. Related Data Home Medications Medication Instructions Recorded Confirmed sertraline 50 mg tablet 50 mg PO Q24H 06/20/22 01/11/23 Previous Rx's Medication Instructions Recorded ondansetron 4 mg disintegrating 4 mg PO Q6H #20 tabs 12/30/22 tablet metoclopramide HCl 10 mg tablet 10 mg PO Q6H PRN nausea and 01/02/23 (Reglan) vomiting #20 tabs prochlorperazine maleate 10 mg 10 mg PO Q6H PRN #15 tabs 01/08/23 tablet (Compazine) sucralfate 100 mg/mL oral 10 ml PO BID #400 mL 01/08/23 suspension (Carafate) Allergies Allergy/AdvReac Type Severity Reaction Status Date / Time bee venom protein (honey bee) Allergy Severe Anaphylaxis Verified 01/01/23 23:31 Sulfa (Sulfonamide Allergy Unknown Runs in Verified 01/01/23 23:31 Antibiotics) the Family [facility] Medical History (Updated 01/11/23 @ 17:56 by Trayn Clifton MD) Depression ?F32.A - Depression, unspecified (ICD-10) Migraine headache ?G43.909 - Migraine, unspecified, not intractable, without status migrainosus (ICD-10) STD (sexually transmitted disease) ?A64 - Unspecified sexually transmitted disease (ICD-10) Tibia/fibula fracture ?S82.209A - Unspecified fracture of shaft of unspecified tibia, initial encounter for closed fracture (ICD-10) ?S82.409A - Unspecified fracture of shaft of unspecified fibula, initial encounter for closed fracture (ICD-10) Social History Smoking Status: Former smoker Do you use any of these nicotine containing products: None Second hand tobacco smoke exposure: No How often do you have a drink containing alcohol: never How often do you have six or more drinks on one occasion: Never AUDIT-C Alcohol total score: 0 Non-prescribed substance use: denies use service: No Exam Const: Vital Signs, click to edit/add: Vital Signs - 24 hr 01/11/23 16:54 01/11/23 17:01 01/11/23 17:02 Temperature 97.4 F L Pulse Rate 96 107 H Pulse Rate [Right Pulse Oximeter] 97 Respiratory Rate 14 Blood Pressure 112/66 Blood Pressure [Ri ght Upper Arm] 116/76 Pulse Oximetry 97 97 96 Oxygen Delivery Me thod Room Air Room Air 01/11/23 17:16 01/11/23 17:30 01/11/23 17:32 Temperature Pulse Rate 92 80 96 Pulse Rate [Right Pulse Oximeter] Respiratory Rate Blood Pressure 112/62 Blood Pressure [Ri ght Upper Arm] Pulse Oximetry 99 99 97 Oxygen Delivery Me thod 01/11/23 17:45 01/11/23 18:00 Temperature Pulse Rate 80 86 Pulse Rate [Right Pulse Oximeter] Respiratory Rate Blood Pressure Blood Pressure [Ri ght Upper Arm] Pulse Oximetry 98 98 Oxygen Delivery Me thod Common normals: no apparent distress General appearance: cooperative and comfortable HENMT: Mouth: oral and palatal mucosa normal Throat: posterior oropharynx normal Eye: General eye: normal appearance of both eyes Resp: Common normals: normal respiratory effort and clear to auscultation bilaterally Effort & inspection: able to speak in complete sentences Auscultation: clear to auscultation bilaterally Cardio: Common normals: regular rate, regular rhythm, S1 normal heart sound, S2 normal heart sound, no murmurs and peripheral pulses 2+ throughout Rate: regular rate Rhythm: regular rhythm Heart sounds: S1 normal and S2 normal Peripheral pulses: pulses 2+ throughout GI: Other: Abdomen appears nondistended. The epigastrium is mildly tender to palpation but no severe tenderness. There is no tenderness to the right upper quadrant, lower abdomen. There are no obvious masses. Fundal height cannot be palpated. Extremity: Common normals: normal capillary refill and no pedal edema Neuro: Gait (neuro): normal gait Motor exam: strength 5/5 throughout and no movement abnormalities noted Psych: Activity/motor behavior: appropriate eye contact Insight: insight good Judgement: judgment good Course Vital Signs Vital signs: Initial Vital Signs Temperature 97.4 F L 01/11/23 16:54 Temperature Source Temporal Artery Scan 01/11/23 16:54 Pulse Rate 97 01/11/23 16:54 Respiratory Rate 14 01/11/23 16:54 Blood Pressure 116/76 01/11/23 16:54 Blood Pressure Mean 89 01/11/23 16:54 Blood Pressure Position Sitting 01/11/23 16:54 Pulse Oximetry 97 01/11/23 16:54 Oxygen Delivery Method Room Air 01/11/23 16:54 Vital Signs Temperature 97.4 F L 01/11/23 16:54 Pulse Rate 97 01/11/23 16:54 Respiratory Rate 14 01/11/23 16:54 Blood Pressure 116/76 01/11/23 16:54 Pulse Oximetry 97 01/11/23 16:54 Oxygen Delivery Method Room Air 01/11/23 16:54 Temperature 97.4 F L 01/11/23 16:54 Pulse Rate 86 01/11/23 18:00 Respiratory Rate 14 01/11/23 16:54 Blood Pressure 112/62 01/11/23 17:32 Pulse Oximetry 98 01/11/23 18:00 Oxygen Delivery Method Room Air 01/11/23 17:01 Medical Decision Making MDM Narrative Medical decision making narrative: Capillary refill normal, no tachycardia or hypotension. Do suspect that she has some degree of dehydration. Last to ED notes reviewed from less than 10 days ago. Reviewed recent labs, ultrasound has recently been performed as well. We discuss the utility of repeating these or not, she is agreeable to symptomatic management only. Counseled patient that I do want to see the emesis bag if she has more vomiting to determine if we need to do endoscopy or admit for observation. Will start 2 L of lactated Ringer's, no labs at this time, no imaging. IV Protonix, Zofran. If she tolerates this will dose Carafate as well. Upcoming visit in 10 days with Ob provider. Will re-evaluate after fluids. Update: Patient examined after 1 L of LR completed, has not had any vomiting in certainly no hematemesis in our ED. she is feeling a little better after Protonix and omeprazole, has held down the Carafate. Will finish the 2nd plan L of LR and then discharge. Counseled patient that I would like for her to start using her omeprazole every night preferably on an empty stomach, may take her vitamin at the same time. Stressed the importance of spacing out the Carafate twice daily. Take her Zofran every morning shortly after she wakes before attempting to eat or drink any additional food. She can continue the Reglan and Zofran throughout the day if needed. Continue to push fluids and follow up next week with her Ob provider as is planned. Discharge Plan Discharge Clinical Impression: Hyperemesis gravidarum Patient Disposition: Home, Self-Care Condition: Improved Instructions: Hyperemesis Gravidarum (ED) Additional Instructions: Hopefully things start to improve for you within the next couple of weeks. Keep your pending appointment with your Ob provider. I would like to make a couple of changes to her medications I think that this will help in the long run. First, I would like for you to switch your omeprazole to bedtime. Go ahead and take this to night before you go to bed. If taking it before your evening meal is better for you, you are welcome to take it then instead. I would like for you to take Zofran right away every morning when you wake up for the next 2 weeks. Remember that you can take this under your tongue and do not need to try to take additional food or water right away. If you think that you can tolerate it, I would then like for you to take the Carafate also known as sucralfate right away every morning also. Remember not to take a double dose. I would let the medication kick in for about 30 minutes and then attempt to take my sertraline and try some breakfast. Remember that you may continue taking Reglan or additional Zofran as needed throughout the day every 6-8 hours. Remember to take this sucralfate in the evenings as well. It is okay to take her vitamin and the omeprazole at the same time. You may continue to use Tylenol for discomfort. Prioritize fluids, soft bland foods as you are able. Urination is a good indication of hydration status. If you are drinking enough that you are urinating at least 4 times daily, you are likely doing okay. Come back to the emergency department if you are having severe, persistent bloody vomit, severe abdominal pain, heavy vaginal bleeding or are so lightheaded that you cannot stand. Activity Level: No Restrictions Discharge Diet: Regular Prescriptions: No Action sertraline 50 mg tablet 50 mg PO Q24H metoclopramide HCl [Reglan] 10 mg tablet 10 mg PO Q6H PRN (Reason: nausea and vomiting) Qty: 20 0RF Rx Instructions: May take 1/2 or 1 tablet ondansetron 4 mg tablet,disintegrating 4 mg PO Q6H Qty: 20 0RF prochlorperazine maleate [Compazine] 10 mg tablet 10 mg PO Q6H PRNQty: 15 0RF sucralfate [Carafate] 100 mg/mL suspension 10 ml PO BID Qty: 400 2RF Follow Up/Referrals: Giselle Ruiz PA [Primary Care Provider] - Stand Alone Forms: [facility] Info Instructions
[2023-01-11] MEDS: ONDANSETRON 2 MG/ML inj 4 MG IVP (17:21)
[2023-01-11] MEDS: PANTOPRAZOLE SODIUM 40 MG INJ IVP (17:21)
[2023-01-11] MEDS: LACTATED RINGERS 1000 ML 1,000 ML 2000 ML IV ×2 (17:21→18:27)
--- OUTSIDE RECORDS SUMMARY | 2023-01-11 17:35 | XMS_ITS | Continuity of Care Document ---
Author Name Unknown Organization [facility] Address [address] [address] [place] [address] Phone Care Team Providers Care Hand Winder Name Role Phone Unavailable Unavailable Unavailable Allergies, [...] on Encounter Offic Cons New/estab Mod-hi 60 [facility], [address] [address], [place], [place], [id number], [place] tel:[phone] Pediatric [facility] Vomiting Alone No Information Family History Family Member Type Diagnosis Age At Onset No Information Payers Payer name Insurance type Covered republican ID Authoriza tion(s) No Information Social History [...]
[2023-01-11] MEDS: SUCRALFATE 1 GM TABLET PO (18:01)
== END 2023-01-11 19:49 | disposition home or self-care (01) ==
PROVIDERS: Emergency Provider Family Medicine; PCP Physician Assistant
DX: O21.0 Mild hyperemesis gravidarum (principal); Z3A.01 Less than 8 weeks gestation of pregnancy
CPT/HCPCS: 96361; 96374; 96375; 99282; 99284; A9270; C9113; J2405; J7120

== ENCOUNTER 2023-01-14 20:27 | Emergency (ER) | payer MEDICAID, SELFPAY ==
[2023-01-14 22:10] VITALS: BP 119/81; PULSE 107; RESP 16; TEMP 36.6; O2SAT 98; BMI 29.7
--- NOTE | 2023-01-14 22:33 | ED.GENADULT ---
HPI - General Adult General Time Seen by Provider: 22:33 Date Seen: 01/14/23 Chief complaint: Nausea/Vomiting Stated complaint: Pu, 8 weeks , shaky Time Seen by Provider: 01/14/23 22:15 Source: patient and RN notes reviewed Mode of arrival: ambulatory Limitations: no limitations History of Present Illness HPI narrative: Patient is in her 1st trimester of with significant recurrent nausea vomiting. She has been in multiple times for IV fluids. She feels like she has not urinated maybe for 2 days. She can not keep anything down. She has Zofran, Compazine, Carafate at home. She states her mouth feels like cotton and is dry. She has an appointment with the agile coach to discuss termination due to her current symptoms. There is no fevers, no abdominal pain. Reviewed the in-depth last note from Dr. Clifton. Related Data Home Medications Medication Instructions Recorded Confirmed sertraline 50 mg tablet 50 mg PO Q24H 06/20/22 01/11/23 Previous Rx's Medication Instructions Recorded ondansetron 4 mg disintegrating 4 mg PO Q6H #20 tabs 12/30/22 tablet metoclopramide HCl 10 mg tablet 10 mg PO Q6H PRN nausea and 01/02/23 (Reglan) vomiting #20 tabs prochlorperazine maleate 10 mg 10 mg PO Q6H PRN #15 tabs 01/08/23 tablet (Compazine) sucralfate 100 mg/mL oral 10 ml PO BID #400 mL 01/08/23 suspension (Carafate) Allergies Allergy/AdvReac Type Severity Reaction Status Date / Time bee venom protein (honey bee) Allergy Severe Anaphylaxis Verified 01/01/23 23:31 Sulfa (Sulfonamide Allergy Unknown Runs in Verified 01/01/23 23:31 Antibiotics) the Family Review of Systems Status of ROS: Reports: 6 or more systems reviewed and unremarkable except as noted in History and below [facility] Medical History (Updated 01/14/23 @ 22:46 by Trang King MD) Depression ?F32.A - Depression, unspecified (ICD-10) Migraine headache ?G43.909 - Migraine, unspecified, not intractable, without status migrainosus (ICD-10) STD (sexually transmitted disease) ?A64 - Unspecified sexually transmitted disease (ICD-10) Tibia/fibula fracture ?S82.209A - Unspecified fracture of shaft of unspecified tibia, initial encounter for closed fracture (ICD-10) ?S82.409A - Unspecified fracture of shaft of unspecified fibula, initial encounter for closed fracture (ICD-10) Social History Smoking Status: Former smoker Do you use any of these nicotine containing products: None Second hand tobacco smoke exposure: No How often do you have a drink containing alcohol: never How often do you have six or more drinks on one occasion: Never AUDIT-C Alcohol total score: 0 Non-prescribed substance use: denies use service: No Exam Const: Vital Signs, click to edit/add: Vital Signs - 24 hr 01/14/23 22:10 Temperature 97.9 F Pulse Rate [Left P ulse Oximeter] 107 H Respiratory Rate 16 Blood Pressure [Ri ght Upper Arm] 119/81 Pulse Oximetry 98 Oxygen Delivery Me thod Room Air 27-year-old female that looks tired in like she does not feel well. Pupils equal round reactive to light sclera clear. Oropharynx with dry mucosa but speech is normal, no lesions noted. Dentition good repair. Neck is supple, no cervical adenopathy or thyromegaly masses or nodules. Lungs are clear, CV regular rhythm but slightly fast. Normal S1 and S2. No murmur. Abdomen is soft, nondistended, nontender. Patient is ambulatory in the ED of her own accor Documenting provider has reviewed patient's vital signs: yes Course Course Hospital Course: Discussed with patient we will stab lotion IV. Will plan on 2 L of lactated Ringer's, will try to help her nausea was some IV Compazine. She is in agreement the plan. She states she just went home and threw up after IV Zofran last time she was in. She will follow-up with OB tomorrow. I do not feel that further work up is necessary at this time given that there are no significant changes from her current symptoms. Vital Signs Vital signs: Initial Vital Signs Temperature 97.9 F 01/14/23 22:10 Temperature Source Temporal Artery Scan 01/14/23 22:10 Pulse Rate 107 H 01/14/23 22:10 Respiratory Rate 16 01/14/23 22:10 Blood Pressure 119/81 01/14/23 22:10 Blood Pressure Mean 93 01/14/23 22:10 Blood Pressure Position Sitting 01/14/23 22:10 Pulse Oximetry 98 01/14/23 22:10 Oxygen Delivery Method Room Air 01/14/23 22:10 Vital Signs Temperature 97.9 F 01/14/23 22:10 Pulse Rate 107 H 01/14/23 22:10 Respiratory Rate 16 01/14/23 22:10 Blood Pressure 119/81 01/14/23 22:10 Pulse Oximetry 98 01/14/23 22:10 Oxygen Delivery Method Room Air 01/14/23 22:10 Temperature 97.9 F 01/14/23 22:10 Pulse Rate 107 H 01/14/23 22:10 Respiratory Rate 16 01/14/23 22:10 Blood Pressure 119/81 01/14/23 22:10 Pulse Oximetry 98 01/14/23 22:10 Oxygen Delivery Method Room Air 01/14/23 22:10 Critical Care Time Critical Care Time Critical Care Time: No Discharge Plan Discharge Clinical Impression: Hyperemesis gravidarum Patient Disposition: Home, Self-Care Condition: Stable Instructions: Hyperemesis Gravidarum (ED) Additional Instructions: Go home and try to rest. Follow up with OB appointment tomorrow as planned. Prescriptions: No Action sertraline 50 mg tablet 50 mg PO Q24H metoclopramide HCl [Reglan] 10 mg tablet 10 mg PO Q6H PRN (Reason: nausea and vomiting) Qty: 20 0RF Rx Instructions: May take 1/2 or 1 tablet ondansetron 4 mg tablet,disintegrating 4 mg PO Q6H Qty: 20 0RF prochlorperazine maleate [Compazine] 10 mg tablet 10 mg PO Q6H PRNQty: 15 0RF sucralfate [Carafate] 100 mg/mL suspension 10 ml PO BID Qty: 400 2RF Follow Up/Referrals: Giselle Ruiz PA [Primary Care Provider] - Stand Alone Forms: [facility] Info Instructions
--- OUTSIDE RECORDS SUMMARY | 2023-01-14 22:44 | XMS_ITS | Continuity of Care Document ---
Author Name Unknown Organization [facility] Address [address] [address] [place] [address] Phone Care Team Providers Care Cross Country And Track And Field Coach Name Role Phone Unavailable Unavailable Unavailable Allergies, [...] on Encounter Offic Cons New/estab Mod-hi 60 [facility], [address] [address], [place], [place], [id number], [place] tel:[phone] Pediatric Clinic Vomiting Alone No Information Family [...]
[2023-01-14] MEDS: LACTATED RINGERS 1000 ML 1,000 ML IV ×2 (22:54→22:55)
[2023-01-14] MEDS: PROCHLORPERAZINE 5 MG/ML VIAL IV (22:55)
== END 2023-01-15 00:50 | disposition home or self-care (01) ==
PROVIDERS: Emergency Provider Family Medicine; PCP Physician Assistant
DX: O21.0 Mild hyperemesis gravidarum (principal); Z3A.08 8 weeks gestation of pregnancy
CPT/HCPCS: 96374; 99283; 99284; J0780; J7120

== ENCOUNTER 2023-05-13 10:19 | Emergency (ER) | payer MEDICAID, SELFPAY ==
[2023-05-13 10:21] VITALS: BP 113/74; PULSE 92; RESP 16; TEMP 36.3; O2SAT 98; BMI 33.9
--- NOTE | 2023-05-13 10:44 | ED_ITS ---
HPI - General Adult General Chief complaint: Nausea/Vomiting Stated complaint: 6 weeks , vomiting Time Seen by Provider: 05/13/23 10:25 Source: patient Mode of arrival: ambulatory Limitations: no limitations History of Present Illness HPI narrative: 27-year-old female almost 7 weeks gestation presents with 3 days of nonstop vomiting. States that she has had hyperemesis gravidarum with previous pregnancies. Had specks dark material in her vomit this morning this concerned her. She denies feeling lightheaded or dizzy. She does have mild abdominal discomfort is diffuse she believes is from the dry heaving. She has been urinating normally, no diarrhea. No fevers or chills. No vaginal bleeding or discharge. No pain in her chest. Related Data Home Medications Medication Instructions Recorded Confirmed sertraline 50 mg tablet 50 mg PO Q24H 06/20/22 05/13/23 Previous Rx's Medication Instructions Recorded ondansetron 4 mg disintegrating 4 mg PO Q6H #20 tabs 12/30/22 tablet metoclopramide HCl 10 mg tablet 10 mg PO Q6H PRN nausea and 01/02/23 (Reglan) vomiting #20 tabs prochlorperazine maleate 10 mg 10 mg PO Q6H PRN #15 tabs 01/08/23 tablet (Compazine) sucralfate 100 mg/mL oral 10 ml PO BID #400 mL 01/08/23 suspension (Carafate) ondansetron 4 mg disintegrating 4 mg PO Q6H PRN nausea and 05/13/23 tablet vomiting #20 tabs Allergies Allergy/AdvReac Type Severity Reaction Status Date / Time bee venom protein (honey bee) Allergy Severe Anaphylaxis Verified 01/01/23 23:31 Sulfa (Sulfonamide Allergy Unknown Runs in Verified 01/01/23 23:31 Antibiotics) the Family Review of Systems Status of ROS: Reports: 10 or more systems reviewed and unremarkable except as noted in History and below [facility] Medical History History of vaginal delivery (02/14/20) Observed seizure-like activity (2010) ?R56.9 - Unspecified convulsions (ICD-10) Tibia/fibula fracture ?S82.209A - Unspecified fracture of shaft of unspecified tibia, initial encounter for closed fracture (ICD-10) ?S82.409A - Unspecified fracture of shaft of unspecified fibula, initial encounter for closed fracture (ICD-10) STD (sexually transmitted disease) ?A64 - Unspecified sexually transmitted disease (ICD-10) Social History Smoking Status: Former smoker Do you use any of these nicotine containing products: None Second hand tobacco smoke exposure: No How often do you have a drink containing alcohol: never How often do you have six or more drinks on one occasion: Never AUDIT-C Alcohol total score: 0 Non-prescribed substance use: denies use service: No Exam Narrative: Exam Narrative: Well-nourished well-developed patient in no acute distress. Alert and oriented. Answers questions appropriately. Mood and affect are appropriate. Thoughts are goal oriented and rational. No tangential or magical thinking noted. Patient speaks in full sentences without needing to catch her breath. HEENT: Normocephalic atraumatic. Pupils are equally round reactive to light. Extraocular muscles are intact. Conjunctivae are moist without any icterus noted. Moist mucous membranes. No pallor noted. Posterior pharynx is normal. Neck is soft without any lymphadenopathy or thyromegaly. No masses are appreciated. Cardiovascular: Heart is regular rate and rhythm S1 and S2 are present without any murmurs. Lungs: Clear to auscultation bilaterally no wheezes rhonchi or rales are appreciated. Patient takes deep breaths without any discomfort. Abdomen: Soft and nontender nondistended with normal bowel sounds. No guarding or rebound. No masses or organomegaly appreciated. Minimal discomfort with palpation. Extremities: Bilateral lower extremities are without edema. Normal DP and PT pulses. Skin: Well perfused without any obvious rashes. Warm dry and intact. Patient is not diaphoretic. Const: Vital Signs, click to edit/add: Vital Signs - 24 hr 05/13/23 10:21 Temperature 97.3 F L Pulse Rate [Pulse Oximeter] 92 Respiratory Rate 16 Blood Pressure [Ri ght Upper Arm] 113/74 Pulse Oximetry 98 Oxygen Delivery Me thod Room Air Course Course Hospital Course: IV established, patient was started on normal saline and Zofran. Lab work unremarkable. No episodes of vomiting or dry heaving while in the ER. Patient feeling significantly better after normal saline and Zofran. Vital Signs Vital signs: Initial Vital Signs Temperature 97.3 F L 05/13/23 10:21 Temperature Source Temporal Artery Scan 05/13/23 10:21 Pulse Rate 92 05/13/23 10:21 Respiratory Rate 16 05/13/23 10:21 Blood Pressure 113/74 05/13/23 10:21 Blood Pressure Mean 87 05/13/23 10:21 Pulse Oximetry 98 05/13/23 10:21 Oxygen Delivery Method Room Air 05/13/23 10:21 Vital Signs Temperature 97.3 F L 05/13/23 10:21 Pulse Rate 92 05/13/23 10:21 Respiratory Rate 16 05/13/23 10:21 Blood Pressure 113/74 05/13/23 10:21 Pulse Oximetry 98 05/13/23 10:21 Oxygen Delivery Method Room Air 05/13/23 10:21 Temperature 97.3 F L 05/13/23 10:21 Pulse Rate 92 05/13/23 10:21 Respiratory Rate 16 05/13/23 10:21 Blood Pressure 113/74 05/13/23 10:21 Pulse Oximetry 98 05/13/23 10:21 Oxygen Delivery Method Room Air 05/13/23 10:21 Medical Decision Making MDM Narrative Medical decision making narrative: 27-year-old female vomiting in . Will send the patient home with oral dissolving Zofran and have her follow-up as needed. Lab Data Lab results reviewed: Yes I reviewed the patient's lab results Labs: Lab Results 05/13/23 05/13/23 05/13/23 Range/Units 11:00 11:00 11:00 WBC 8.61 (4.50-11.00) K/uL RBC 5.18 (4.00-5.20) m/uL Hgb 13.4 (12.0-16.0) gm/dL Hct 41.7 (33.0-51.0) % MCV 81 (80-100) fL MCH 26 (26-34) pg MCHC 32 (32-36) gm/dL RDW Coeff of Juancho 14.0 (11.5-15.5) % Plt Count 365 (140-440) K/uL Neut % (Auto) 78.1 H (42.0-72.0) % Lymph % (Auto) 15.6 L (20-44) % Coleman % (Auto) 5.6 (0.0-11.0) % Eos % (Auto) 0.1 (0.0-7.0) % Baso % (Auto) 0.5 (0.0-3.0) % Neut # (Auto) 6.70 (1.7-7.0) K/uL Lymph # (Auto) 1.30 (0.90-2.90) K/uL Coleman # (Auto) 0.50 (0.00-0.90) K/UL Eos # (Auto) 0.01 (0.00-0.50) K/uL Baso # (Auto) 0.04 (0.00-0.30) K/uL Abs Immat Gran (auto) 0.01 (0.00-0.30) K/uL Imm/Tot Granulo (auto) 0.1 % Sodium Cancelled 136 Potassium Cancelled 3.5 L Chloride Cancelled Carbon Dioxide BUN Creatinine Estimated Creat Clear Estimated GFR Glucose Lactate (0.5-1.9) mmol/L Calcium Total Bilirubin (0.1-1.5) mg/dL Direct Bilirubin (0.0-0.5) mg/dL AST (12-35) U/L ALT (4-35) U/L Alkaline Phosphatase (40-150) U/L Total Protein (6.0-8.3) g/dL Albumin (3.3-5.0) g/dL Lipase (23-300) U/L 05/13/23 05/13/23 05/13/23 Range/Units 11:00 11:00 11:00 WBC (4.50-11.00) K/uL RBC (4.00-5.20) m/uL Hgb (12.0-16.0) gm/dL Hct (33.0-51.0) % MCV (80-100) fL MCH (26-34) pg MCHC (32-36) gm/dL RDW Coeff of Juancho (11.5-15.5) % Plt Count (140-440) K/uL Neut % (Auto) (42.0-72.0) % Lymph % (Auto) (20-44) % Coleman % (Auto) (0.0-11.0) % Eos % (Auto) (0.0-7.0) % Baso % (Auto) (0.0-3.0) % Neut # (Auto) (1.7-7.0) K/uL Lymph # (Auto) (0.90-2.90) K/uL Coleman # (Auto) (0.00-0.90) K/UL Eos # (Auto) (0.00-0.50) K/uL Baso # (Auto) (0.00-0.30) K/uL Abs Immat Gran (auto) (0.00-0.30) K/uL Imm/Tot Granulo (auto) % Sodium Potassium Chloride 104 Carbon Dioxide Cancelled 18 L BUN Cancelled 13 Creatinine Cancelled Estimated Creat Clear Estimated GFR Glucose Lactate (0.5-1.9) mmol/L Calcium Total Bilirubin (0.1-1.5) mg/dL Direct Bilirubin (0.0-0.5) mg/dL AST (12-35) U/L ALT (4-35) U/L Alkaline Phosphatase (40-150) U/L Total Protein (6.0-8.3) g/dL Albumin (3.3-5.0) g/dL Lipase (23-300) U/L 05/13/23 05/13/23 05/13/23 Range/Units 11:00 11:00 11:00 WBC (4.50-11.00) K/uL RBC (4.00-5.20) m/uL Hgb (12.0-16.0) gm/dL Hct (33.0-51.0) % MCV (80-100) fL MCH (26-34) pg MCHC (32-36) gm/dL RDW Coeff of Juancho (11.5-15.5) % Plt Count (140-440) K/uL Neut % (Auto) (42.0-72.0) % Lymph % (Auto) (20-44) % Coleman % (Auto) (0.0-11.0) % Eos % (Auto) (0.0-7.0) % Baso % (Auto) (0.0-3.0) % Neut # (Auto) (1.7-7.0) K/uL Lymph # (Auto) (0.90-2.90) K/uL Coleman # (Auto) (0.00-0.90) K/UL Eos # (Auto) (0.00-0.50) K/uL Baso # (Auto) (0.00-0.30) K/uL Abs Immat Gran (auto) (0.00-0.30) K/uL Imm/Tot Granulo (auto) % Sodium Potassium Chloride Carbon Dioxide BUN Creatinine 0.6 Estimated Creat Clear Cancelled 133.01 Estimated GFR Cancelled 127 Glucose Cancelled Lactate (0.5-1.9) mmol/L Calcium Total Bilirubin (0.1-1.5) mg/dL Direct Bilirubin (0.0-0.5) mg/dL AST (12-35) U/L ALT (4-35) U/L Alkaline Phosphatase (40-150) U/L Total Protein (6.0-8.3) g/dL Albumin (3.3-5.0) g/dL Lipase (23-300) U/L 05/13/23 05/13/23 Range/Units 11:00 11:00 WBC (4.50-11.00) K/uL RBC (4.00-5.20) m/uL Hgb (12.0-16.0) gm/dL Hct (33.0-51.0) % MCV (80-100) fL MCH (26-34) pg MCHC (32-36) gm/dL RDW Coeff of Juancho (11.5-15.5) % Plt Count (140-440) K/uL Neut % (Auto) (42.0-72.0) % Lymph % (Auto) (20-44) % Coleman % (Auto) (0.0-11.0) % Eos % (Auto) (0.0-7.0) % Baso % (Auto) (0.0-3.0) % Neut # (Auto) (1.7-7.0) K/uL Lymph # (Auto) (0.90-2.90) K/uL Coleman # (Auto) (0.00-0.90) K/UL Eos # (Auto) (0.00-0.50) K/uL Baso # (Auto) (0.00-0.30) K/uL Abs Immat Gran (auto) (0.00-0.30) K/uL Imm/Tot Granulo (auto) % Sodium Potassium Chloride Carbon Dioxide BUN Creatinine Estimated Creat Clear Estimated GFR Glucose 80 Lactate 1.0 (0.5-1.9) mmol/L Calcium Cancelled 9.7 Total Bilirubin 0.7 (0.1-1.5) mg/dL Direct Bilirubin 0.2 (0.0-0.5) mg/dL AST 24 (12-35) U/L ALT 20 (4-35) U/L Alkaline Phosphatase 72 (40-150) U/L Total Protein 8.5 H (6.0-8.3) g/dL Albumin 4.8 (3.3-5.0) g/dL Lipase 203 (23-300) U/L Discharge Plan Discharge Clinical Impression: Vomiting affecting Patient Disposition: Home, Self-Care Condition: Stable Additional Instructions: Take Zofran as needed/as directed for nausea and vomiting. Return to the ER if vomiting begins again and you cannot keep anything down. Prescriptions: New ondansetron 4 mg tablet,disintegrating 4 mg PO Q6H PRN (Reason: nausea and vomiting) Qty: 20 0RF No Action sertraline 50 mg tablet 50 mg PO Q24H metoclopramide HCl [Reglan] 10 mg tablet 10 mg PO Q6H PRN (Reason: nausea and vomiting) Qty: 20 0RF Rx Instructions: May take 1/2 or 1 tablet ondansetron 4 mg tablet,disintegrating 4 mg PO Q6H Qty: 20 0RF prochlorperazine maleate [Compazine] 10 mg tablet 10 mg PO Q6H PRNQty: 15 0RF sucralfate [Carafate] 100 mg/mL suspension 10 ml PO BID Qty: 400 2RF Follow Up/Referrals: Giselle Ruiz PA [Referring] - Stand Alone Forms: [facility] Info Instructions
[2023-05-13] MEDS: 0.9 % SODIUM CHLORIDE 1000 ml 1,000 ML IV (11:06)
[2023-05-13 11:08] LABS: Hematocrit 41.7 % (33.0-51.0); Hemoglobin* 13.4 gm/dL (12.0-16.0); Mean Corpuscular Hemoglobin 26 pg (26-34); Mean Corpuscular Volume 81 fL (80-100); Red Blood Count 5.18 m/uL (4.00-5.20); White Blood Count* 8.61 K/uL (4.50-11.00)
[2023-05-13 11:09] LABS: Basophils Absolute Auto 0.04 K/uL (0.00-0.30); Basophils Percent Auto 0.5 % (0.0-3.0); Eosinophils Absolute Auto 0.01 K/uL (0.00-0.50); Eosinophils Percent Auto 0.1 % (0.0-7.0); Immature Granulocytes Abs Auto 0.01 K/uL (0.00-0.30); Immature Granulocytes Pct Auto 0.1 %; Lymphocytes Percent Auto 15.6 % (20-44); Mean Corpuscular HGB Conc 32 gm/dL (32-36); Monocytes Percent Auto 5.6 % (0.0-11.0); Neutrophils Percent Auto 78.1 % (42.0-72.0); Platelet Count* 365 K/uL (140-440)
[2023-05-13] MEDS: ONDANSETRON 2 MG/ML inj 4 MG IVP (11:09)
[2023-05-13 11:16] LABS: Slide Review Reflex No
[2023-05-13 11:24] LABS: Albumin* 4.8 g/dL (3.3-5.0); Chloride* 104 mmol/L (96-114)
[2023-05-13 11:25] LABS: Potassium* 3.5 mmol/L (3.6-5.1); Sodium* 136 mmol/L (135-149)
[2023-05-13 11:27] LABS: Aspartate Amino Transferase* 24 U/L (12-35); Bilirubin Direct* 0.2 mg/dL (0.0-0.5); Bilirubin Total* 0.7 mg/dL (0.1-1.5); Blood Urea Nitrogen* 13 mg/dL (5-24); Carbon Dioxide* 18 mmol/L (20-32); Creatinine* 0.6 mg/dL (0.5-1.5); Est. Creatinine Clearance* 133.01; Estimated Glomerular Filt Rate 127 ml/min; Total Protein* 8.5 g/dL (6.0-8.3)
[2023-05-13 11:28] LABS: Alanine Aminotransferase* 20 U/L (4-35); Alkaline Phosphatase* 72 U/L (40-150); Calcium* 9.7 mg/dL (8.4-10.6); Glucose* 80 mg/dL (60-115); Lipase* 203 U/L (23-300)
== END 2023-05-13 12:21 | disposition home or self-care (01) ==
PROVIDERS: Emergency Provider Family Medicine
DX: O21.9 Vomiting of pregnancy, unspecified (principal)
CPT/HCPCS: 36415; 80048; 80076; 83605; 83690; 85025; 96361; 96374; 99284; J2405; J7030

== ENCOUNTER 2023-09-10 15:30 | Emergency (ER) | payer MEDICAID, SELFPAY ==
[2023-09-10 15:45] VITALS: BP 114/70; PULSE 89; RESP 18; TEMP 36.5; O2SAT 99; BMI 37.1
--- NOTE | 2023-09-10 16:37 | ED.NAVMDI ---
HPI - Nausea/Vomiting/Diarrhea General Chief complaint: Nausea/Vomiting Stated complaint: vomiting Time Seen by Provider: 09/10/23 16:26 History of Present Illness HPI Narrative: This patient is a 28-year-old female who states that she is today short of 6 weeks . She has some associated nausea and vomiting and comes in today because she noted of few brown specks in the vomit. She arrives with normal vital signs. She is not actively vomiting and appears to be in no acute distress. She has been in the past with hyperemesis and states that she did take Zofran recently without much relief. Related Data Home Medications Medication Instructions Recorded Confirmed sertraline 50 mg tablet 50 mg PO Q24H 06/20/22 05/13/23 Previous Rx's Medication Instructions Recorded ondansetron 4 mg disintegrating 4 mg PO Q6H #20 tabs 12/30/22 tablet metoclopramide HCl 10 mg tablet 10 mg PO Q6H PRN nausea and 01/02/23 (Reglan) vomiting #20 tabs prochlorperazine maleate 10 mg 10 mg PO Q6H PRN #15 tabs 01/08/23 tablet (Compazine) sucralfate 100 mg/mL oral 10 ml PO BID #400 mL 01/08/23 suspension (Carafate) ondansetron 4 mg disintegrating 4 mg PO Q6H PRN nausea and 05/13/23 tablet vomiting #20 tabs metoclopramide HCl 10 mg tablet 10 mg PO Q6H PRN nausea and 09/10/23 (Reglan) vomiting #20 tabs Allergies Allergy/AdvReac Type Severity Reaction Status Date / Time bee venom protein (honey bee) Allergy Severe Anaphylaxis Verified 01/01/23 23:31 Sulfa (Sulfonamide Allergy Unknown Runs in Verified 01/01/23 23:31 Antibiotics) the Family Review of Systems Status of ROS: Reports: 10 or more systems reviewed and unremarkable except as noted in History and below Narrative: Constitutional: No fevers, no weight gain or loss. Eyes: No discharge. No vision changes. HENT: No congestion, no sore throat, no ear pain. Cardiovascular: No chest pain, no palpitations. Respiratory: No shortness of breath, no wheezes, no cough. Gastrointestinal: No abdominal pain, no diarrhea. Nausea with vomiting. Genitourinary: No dysuria, no hematuria. Musculoskeletal: Normal range of motion. Skin: No rashes, no pruritis. Neurological: No dizziness, weakness, sensory change, speech change. Endo/Heme/Allergies: No bruising or bleeding. No polydipsia. Pysch: no suicidality, no anxiety, no insomnia. All other systems reviewed and are negative. [facility] Medical History History of vaginal delivery (02/14/20) Observed seizure-like activity (2010) ?R56.9 - Unspecified convulsions (ICD-10) Tibia/fibula fracture ?S82.209A - Unspecified fracture of shaft of unspecified tibia, initial encounter for closed fracture (ICD-10) ?S82.409A - Unspecified fracture of shaft of unspecified fibula, initial encounter for closed fracture (ICD-10) STD (sexually transmitted disease) ?A64 - Unspecified sexually transmitted disease (ICD-10) Social History Smoking Status: Former smoker Do you use any of these nicotine containing products: None Second hand tobacco smoke exposure: No How often do you have a drink containing alcohol: never How often do you have six or more drinks on one occasion: Never AUDIT-C Alcohol total score: 0 Non-prescribed substance use: denies use service: No Exam Narrative: Exam Narrative: Constitutional: Well-developed, well-nourished, no acute distress. HEENT: Normocephalic, atraumatic. Neck: Normal range of motion. Nontender. Supple. Heart: Regular. No murmurs. Normal rate. Intact distal pulses. Lungs: Clear to auscultation. No chest discomfort. No wheezes, rhonchi, or rales. Abdomen: Normal bowel sounds. Nontender. No rebound tenderness. Genitalia: Deferred. Back: No midline tenderness. Normal range of motion. Extremities: Normal range of motion. No injury. Skin: Intact. No rash. Warm. No erythema or pallor. Neurologic: No altered sensation. No weakness. Alert and oriented. Psychiatric: No suicidality. No anxiety or depression. No insomnia. Nursing notes and vitals signs are reviewed. Const: Vital Signs, click to edit/add: Vital Signs - 24 hr 09/10/23 15:45 Temperature 97.7 F Pulse Rate [Right Femoral] 89 Respiratory Rate 18 Blood Pressure [Ri ght Upper Arm] 114/70 Pulse Oximetry 99 Oxygen Delivery Me thod Room Air Course Vital Signs Vital signs: Initial Vital Signs Temperature 97.7 F 09/10/23 15:45 Temperature Source Temporal Artery Scan 09/10/23 15:45 Pulse Rate 89 09/10/23 15:45 Respiratory Rate 18 09/10/23 15:45 Blood Pressure 114/70 09/10/23 15:45 Blood Pressure Mean 84 09/10/23 15:45 Blood Pressure Position Sitting 09/10/23 15:45 Pulse Oximetry 99 09/10/23 15:45 Oxygen Delivery Method Room Air 09/10/23 15:45 Vital Signs Temperature 97.7 F 09/10/23 15:45 Pulse Rate 89 09/10/23 15:45 Respiratory Rate 18 09/10/23 15:45 Blood Pressure 114/70 09/10/23 15:45 Pulse Oximetry 99 09/10/23 15:45 Oxygen Delivery Method Room Air 09/10/23 15:45 Temperature 97.7 F 09/10/23 15:45 Pulse Rate 89 09/10/23 15:45 Respiratory Rate 18 09/10/23 15:45 Blood Pressure 114/70 09/10/23 15:45 Pulse Oximetry 99 09/10/23 15:45 Oxygen Delivery Method Room Air 09/10/23 15:45 MDM - Nausea/Vomiting/Diarrhea MDM Narrative Medical decision making narrative: This patient is 6 weeks and has related nausea and vomiting. She arrives with normal vital signs and states that she has her 1st OB appointment coming up within a week. I discussed options to help her with these symptoms and the patient is requesting a L of normal saline and a dose of Zofran in an IV. She declined any lab studies at this time. She will receive these IV treatments and then will be okay to be discharged home. I did provide a prescription for Reglan. Discharge Plan Discharge Clinical Impression: Persistent hyperemesis vomiting, arising during Patient Disposition: Home, Self-Care Condition: Stable Additional Instructions: Take frequent sips of fluids. Use medications as needed and directed. Follow with MD as scheduled for 1st OB appointment. Return if worsening. Prescriptions: New metoclopramide HCl [Reglan] 10 mg tablet 10 mg PO Q6H PRN (Reason: nausea and vomiting) Qty: 20 0RF No Action sertraline 50 mg tablet 50 mg PO Q24H metoclopramide HCl [Reglan] 10 mg tablet 10 mg PO Q6H PRN (Reason: nausea and vomiting) Qty: 20 0RF Rx Instructions: May take 1/2 or 1 tablet ondansetron 4 mg tablet,disintegrating 4 mg PO Q6H PRN (Reason: nausea and vomiting) Qty: 20 0RF ondansetron 4 mg tablet,disintegrating 4 mg PO Q6H Qty: 20 0RF prochlorperazine maleate [Compazine] 10 mg tablet 10 mg PO Q6H PRNQty: 15 0RF sucralfate [Carafate] 100 mg/mL suspension 10 ml PO BID Qty: 400 2RF Follow Up/Referrals: Provider,Not a Local [Primary Care Provider] - Stand Alone [facility]
[2023-09-10] MEDS: 0.9 % SODIUM CHLORIDE 1000 ml 1,000 ML IV (16:56)
[2023-09-10] MEDS: ONDANSETRON 2 MG/ML inj 4 MG IVP (16:56)
== END 2023-09-10 17:44 | disposition home or self-care (01) ==
LOC: ED 16:43
PROVIDERS: Emergency Provider Emergency Medicine Emergency Medical Services
DX: O21.0 Mild hyperemesis gravidarum (principal); Z3A.01 Less than 8 weeks gestation of pregnancy
CPT/HCPCS: 96374; 99283; 99284; J2405; J7030

== ENCOUNTER 2023-09-12 15:25 | Emergency (ER) | payer MEDICAID, SELFPAY ==
[2023-09-12 15:33] VITALS: BP 122/74; PULSE 79; RESP 16; TEMP 36.8; O2SAT 97; BMI 37.4
--- NOTE | 2023-09-12 16:18 | ED_ITS ---
HPI - General Adult General Chief complaint: Nausea/Vomiting Stated complaint: Morning sickness; nausea Time Seen by Provider: 09/12/23 16:17 History of Present Illness HPI narrative: 6 weeks , nausea and vomiting for 4d in a row, lips are chapped and dry, unable to hold food or drink down. She has zofran at home that has not been helping 28-year-old woman presenting to the emergency department accompanied by her mother a nurse practitioner with concern of recurrent vomiting. She does have a little bit of a headache. No visual disturbances. She is 6 weeks . Did have hyperemesis gravidarum with prior . She has not had any fever at. Was actually seen here 2 days ago and did receive fluid resuscitation IV. Does have Zofran available at home. Notes that Reglan does not typically work. She would like some Zofran IV. Mom wonders whether not there is a suppository option. Does have abdominal pain that she would associate with frequency of vomiting. No hematemesis described. Related Data Home Medications Medication Instructions Recorded Confirmed sertraline 50 mg tablet 50 mg PO Q24H 06/20/22 05/13/23 Previous Rx's Medication Instructions Recorded ondansetron 4 mg disintegrating 4 mg PO Q6H #20 tabs 12/30/22 tablet metoclopramide HCl 10 mg tablet 10 mg PO Q6H PRN nausea and 01/02/23 (Reglan) vomiting #20 tabs prochlorperazine maleate 10 mg 10 mg PO Q6H PRN #15 tabs 01/08/23 tablet (Compazine) sucralfate 100 mg/mL oral 10 ml PO BID #400 mL 01/08/23 suspension (Carafate) ondansetron 4 mg disintegrating 4 mg PO Q6H PRN nausea and 05/13/23 tablet vomiting #20 tabs metoclopramide HCl 10 mg tablet 10 mg PO Q6H PRN nausea and 09/10/23 (Reglan) vomiting #20 tabs promethazine 25 mg rectal 25 mg SC QID PRN nausea/vomiting 09/12/23 suppository #12 ea Allergies Allergy/AdvReac Type Severity Reaction Status Date / Time bee venom protein (honey bee) Allergy Severe Anaphylaxis Verified 09/12/23 15:37 Sulfa (Sulfonamide Allergy Unknown Runs in Verified 09/12/23 15:37 Antibiotics) the Family Review of Systems Status of ROS: Reports: 6 or more systems reviewed and unremarkable except as noted in History and below [facility] Medical History History of vaginal delivery (02/14/20) Observed seizure-like activity (2010) ?R56.9 - Unspecified convulsions (ICD-10) Tibia/fibula fracture ?S82.209A - Unspecified fracture of shaft of unspecified tibia, initial encounter for closed fracture (ICD-10) ?S82.409A - Unspecified fracture of shaft of unspecified fibula, initial encounter for closed fracture (ICD-10) STD (sexually transmitted disease) ?A64 - Unspecified sexually transmitted disease (ICD-10) Social History Smoking Status: Former smoker Do you use any of these nicotine containing products: None Second hand tobacco smoke exposure: No How often do you have a drink containing alcohol: never How often do you have six or more drinks on one occasion: Never AUDIT-C Alcohol total score: 0 Non-prescribed substance use: denies use service: No Exam Narrative: Exam Narrative: Pleasant. NAD. Speaking easily. Breathing easily. Mouth sounds little sticky. Lips are dry. Cranial nerves 2-12 intact. Moving all extremities that difficulty. She is well-perfused. Heart is in a regular rate and rhythm. Abdomen is little overweight. Soft. Diffusely tender. Const: Vital Signs, click to edit/add: Vital Signs - 24 hr 09/12/23 15:33 Temperature 98.3 F Pulse Rate [Right Pulse Oximeter] 79 Respiratory Rate 16 Blood Pressure [Ri ght Upper Arm] 122/74 Pulse Oximetry 97 Oxygen Delivery Me thod Room Air Documenting provider has reviewed patient's vital signs: yes Course Vital Signs Vital signs: Initial Vital Signs Temperature 98.3 F 09/12/23 15:33 Temperature Source Temporal Artery Scan 09/12/23 15:33 Pulse Rate 79 09/12/23 15:33 Pulse Rhythm Regular 09/12/23 15:33 Pulse Strength 3+ Normal 09/12/23 15:33 Respiratory Rate 16 09/12/23 15:33 Blood Pressure 122/74 09/12/23 15:33 Blood Pressure Mean 90 09/12/23 15:33 Blood Pressure Position Sitting 09/12/23 15:33 Pulse Oximetry 97 09/12/23 15:33 Oxygen Delivery Method Room Air 09/12/23 15:33 Vital Signs Temperature 98.3 F 09/12/23 15:33 Pulse Rate 79 09/12/23 15:33 Respiratory Rate 16 09/12/23 15:33 Blood Pressure 122/74 09/12/23 15:33 Pulse Oximetry 97 09/12/23 15:33 Oxygen Delivery Method Room Air 09/12/23 15:33 Temperature 98.3 F 09/12/23 15:33 Pulse Rate 79 09/12/23 15:33 Respiratory Rate 16 09/12/23 15:33 Blood Pressure 122/74 09/12/23 15:33 Pulse Oximetry 97 09/12/23 15:33 Oxygen Delivery Method Room Air 09/12/23 15:33 Medications Administered Medications: Discontinued Medications Generic Name Dose Route Start Last Admin Trade Name Freq PRN Reason Stop Dose Admin Dextrose/Lactated Ringer's 1,000 mls @ 1,000 mls/hr 09/12/23 15:39 09/12/23 19:32 5 % Dextrose In Lac Ringer's IV 09/12/23 16:38 Infused .Q1H ONE Infusion Sodium Chloride 1,000 mls @ 1,000 mls/hr 09/12/23 16:39 09/12/23 19:32 0.9 % Sodium Chloride 1000 Ml IV 09/12/23 17:38 Infused .Q1H ONE Infusion Sodium Chloride 1,000 mls @ 1,000 mls/hr 09/12/23 18:37 09/12/23 20:17 0.9 % Sodium Chloride 1000 Ml IV 09/12/23 19:36 Infused .Q1H ONE Infusion Ondansetron HCl 4 mg 09/12/23 16:39 09/12/23 16:50 Ondansetron 2 Mg/Ml Inj IVP 09/12/23 16:40 4 mg ONCE ONE Administration Medical Decision Making MDM Narrative Medical decision making narrative: Frequency of vomiting I think warrants IV fluids. Does appear to be little dehydrated on physical exam. Start with IV Zofran as this works for her. I would check chemistries as well. Does have abdominal pain but it seems not inconsistent with recurrent vomiting and abdominal tension. Urinalysis pending as well. We discussed maintaining IV given quick turnaround this last time. She is a bit of difficult start. Overall improved with Zofran and ultimately 2 L of normal saline. Serum hCG confirming approximately dated . Urinalysis with ketones. In this setting I would wait for culture results before treating. Chemistries otherwise look good. During busy time in the emergency department Dario understandably wanted to depart the ER. IV was pulled from right forearm prior to further discussion about maintaining it. Did discuss also with OB on-call regarding options for antiemetics; specifically Compazine versus Phenergan suppositories. See patient discharge plan Lab Data Lab results reviewed: Yes I reviewed the patient's lab results Labs: Lab Results 09/12/23 09/12/23 Range/Units 16:40 20:31 Sodium 137 (135-149) mmol/L Potassium 4.0 (3.6-5.1) mmol/L Chloride 104 (96-114) mmol/L Carbon Dioxide 21 (20-32) mmol/L Anion Gap 12 (7-15) mEq/L BUN 13 (5-24) mg/dL Creatinine 0.5 (0.5-1.5) mg/dL Estimated Creat Clear 152.08 Estimated GFR 132 ml/min Glucose 92 (60-115) mg/dL Calcium 9.6 (8.4-10.6) mg/dL Magnesium 1.8 (1.5-2.6) mg/dL HCG, Quant 95246.00 mIU/mL Urine Color Yellow (Yellow) Urine Appearance Cloudy A (Clear) Urine pH 6.5 (5.0-8.5) Ur Specific [place] >= 1.030 (1.000-1.030) Urine Protein Negative (Negative) Urine Glucose (UA) Trace A (Negative) Urine Ketones 4+ A (Negative) Urine Blood 1+ A (Negative) Urine Nitrite Negative (Negative) Urine Bilirubin 1+ A (Negative) Urine Urobilinogen 0.2 (0.2-1.0) Ur Leukocyte Esterase Negative (Negative) Urine RBC 10-25 A (0-2) Urine WBC 5-10 A (0-5) Ur Squamous Epith Cells Few (None-Few) Amorphous Sediment Few A (None) Urine Bacteria Few A (None) Discharge Plan Discharge Clinical Impression: Vomiting during , Dehydration Patient Disposition: Home w/ Parent or Adult Condition: Improved Additional Instructions: Continue to focus on hydration; small frequent amounts. Popsicles and Jell-O count as hydration. Be sure to eat a little something before getting up in the mornings. Might want to dose some form of anti-nausea med 4 times a day regardless of whether not you're feeling nauseated over the next couple of days. Activity Level: No Restrictions Discharge Diet: Regular Prescriptions: New promethazine 25 mg suppository 25 mg SC QID PRN (Reason: nausea/vomiting) Qty: 12 1RF No Action sertraline 50 mg tablet 50 mg PO Q24H metoclopramide HCl [Reglan] 10 mg tablet 10 mg PO Q6H PRN (Reason: nausea and vomiting) Qty: 20 0RF Rx Instructions: May take 1/2 or 1 tablet ondansetron 4 mg tablet,disintegrating 4 mg PO Q6H PRN (Reason: nausea and vomiting) Qty: 20 0RF ondansetron 4 mg tablet,disintegrating 4 mg PO Q6H Qty: 20 0RF prochlorperazine maleate [Compazine] 10 mg tablet 10 mg PO Q6H PRNQty: 15 0RF sucralfate [Carafate] 100 mg/mL suspension 10 ml PO BID Qty: 400 2RF metoclopramide HCl [Reglan] 10 mg tablet 10 mg PO Q6H PRN (Reason: nausea and vomiting) Qty: 20 0RF Follow Up/Referrals: Provider,Not a Local [Primary Care Provider] - Stand Alone Forms: [employer] Info Instructions
[2023-09-12] MEDS: ONDANSETRON 2 MG/ML inj 4 MG IVP (16:50)
[2023-09-12] MEDS: 5 % DEXTROSE IN LAC RINGER'S 1,000 ML 1000 ML IV (16:50)
[2023-09-12 17:09] LABS: Chloride* 104 mmol/L (96-114)
[2023-09-12 17:10] LABS: Sodium* 137 mmol/L (135-149)
[2023-09-12 17:12] LABS: Creatinine* 0.5 mg/dL (0.5-1.5); Est. Creatinine Clearance* 152.08; Estimated Glomerular Filt Rate 132 ml/min
[2023-09-12 17:13] LABS: Anion Gap 12 mEq/L (7-15); Blood Urea Nitrogen* 13 mg/dL (5-24); Calcium* 9.6 mg/dL (8.4-10.6); Carbon Dioxide* 21 mmol/L (20-32); Glucose* 92 mg/dL (60-115); Magnesium* 1.8 mg/dL (1.5-2.6)
[2023-09-12] MEDS: 0.9 % SODIUM CHLORIDE 1000 ml 1,000 ML IV ×2 (18:39→19:32)
[2023-09-12 20:36] LABS: Appearance Urine Cloudy (Clear); Bilirubin Urine 1+ (Negative); Blood Urine 1+ (Negative); Color Urine Yellow (Yellow); Glucose Urine Trace (Negative); Ketones Urine 4+ (Negative); Leukocyte Esterase Urine Negative (Negative); Nitrite Urine Negative (Negative); Protein Urine Negative (Negative); Specific Gravity Urine >= 1.030 (1.000-1.030); Urobilinogen Urine 0.2 (0.2-1.0); pH Urine 6.5 (5.0-8.5)
[2023-09-12 21:08] LABS: Amorphous Sediment Urine Few; Bacteria Urine Few; Squamous Epithelial Cell Urine Few (None-Few)
== END 2023-09-12 20:57 | disposition home or self-care (01) ==
PROVIDERS: Family Medicine; Emergency Provider Family Medicine
DX: R11.10 Vomiting, unspecified (principal); E86.0 Dehydration; Z3A.01 Less than 8 weeks gestation of pregnancy
CPT/HCPCS: 36415; 80048; 81001; 83735; 84702; 87086; 96374; 99283; 99284; J2405; J7030

== ENCOUNTER 2023-09-13 20:11 | Emergency (ER) | payer MEDICAID, SELFPAY ==
[2023-09-13 20:18] VITALS: BP 115/74; PULSE 82; RESP 16; TEMP 36.3; O2SAT 98
--- NOTE | 2023-09-13 20:58 | ED_ITS ---
HPI - General Adult General Chief complaint: Nausea/Vomiting Stated complaint: Severe Vomiting- 6 weeks . Time Seen by Provider: 09/13/23 20:40 History of Present Illness HPI narrative: pt reports vomiting, unable to keep food down. Was told to be seen if unable to keep food or liquids down 28-year-old woman returning to the emergency department after being seen yesterday by me with vomiting in at approximately 6 weeks. Consistent with confirmed serum hCG quantitative. Reported history of actual hyperemesis gravidarum with prior . Received 2 L of normal saline at that time. Had been prescribed suppositories but due to coverage had not picked them up. I received a call about her from pharmacy as I started shift today to change to suppositories actually covered by insurance; changed to prochlorperazine. Has had ODT Zofran available. Left yesterday feeling improved. Had some water in the morning. Thinks she managed to keep down some eggs today. Has been having more discomfort in the epigastrium took Tums and omeprazole. Does not take omeprazole regularly. Has had persistent trouble keeping anything down with repeated vomiting through the afternoon. Took a Zofran ODT for the 1st time mid afternoon today and then Compazine suppository about an hour and half prior to arrival here. Is still nauseated and would like some IV Zofran. Can get headaches and constipation with Zofran but it is a medication that has typically worked. Reports to have lost 12 lb ?since this all started? she says 5 days ago. Reports to have made an appointment for Friday with OBGYN Related Data Home Medications Medication Instructions Recorded Confirmed sertraline 50 mg tablet 50 mg PO Q24H 06/20/22 05/13/23 Previous Rx's Medication Instructions Recorded ondansetron 4 mg disintegrating 4 mg PO Q6H #20 tabs 12/30/22 tablet metoclopramide HCl 10 mg tablet 10 mg PO Q6H PRN nausea and 01/02/23 (Reglan) vomiting #20 tabs prochlorperazine maleate 10 mg 10 mg PO Q6H PRN #15 tabs 01/08/23 tablet (Compazine) sucralfate 100 mg/mL oral 10 ml PO BID #400 mL 01/08/23 suspension (Carafate) ondansetron 4 mg disintegrating 4 mg PO Q6H PRN nausea and 05/13/23 tablet vomiting #20 tabs metoclopramide HCl 10 mg tablet 10 mg PO Q6H PRN nausea and 09/10/23 (Reglan) vomiting #20 tabs promethazine 25 mg rectal 25 mg ND QID PRN nausea/vomiting 09/12/23 suppository #12 ea prochlorperazine 25 mg rectal 25 mg ND Q6H PRN nausea/vomiting 09/13/23 suppository #12 ea promethazine 25 mg rectal 25 mg ND Q6H PRN nausea/vomiting 09/13/23 suppository #1 ea Allergies Allergy/AdvReac Type Severity Reaction Status Date / Time bee venom protein (honey bee) Allergy Severe Anaphylaxis Verified 09/12/23 15:37 Sulfa (Sulfonamide Allergy Unknown Runs in Verified 09/12/23 15:37 Antibiotics) the Family Review of Systems Status of ROS: Reports: 6 or more systems reviewed and unremarkable except as noted in History and below [facility] Medical History History of vaginal delivery (02/14/20) Observed seizure-like activity (2010) ?R56.9 - Unspecified convulsions (ICD-10) Tibia/fibula fracture ?S82.209A - Unspecified fracture of shaft of unspecified tibia, initial encounter for closed fracture (ICD-10) ?S82.409A - Unspecified fracture of shaft of unspecified fibula, initial encounter for closed fracture (ICD-10) STD (sexually transmitted disease) ?A64 - Unspecified sexually transmitted disease (ICD-10) Social History Smoking Status: Former smoker Do you use any of these nicotine containing products: None Second hand tobacco smoke exposure: No How often do you have a drink containing alcohol: never How often do you have six or more drinks on one occasion: Never AUDIT-C Alcohol total score: 0 Non-prescribed substance use: denies use service: No Exam Narrative: Exam Narrative: Pleasant. Calm. Accompanied by her father today. Oropharynx is moist. Lips more moist than yesterday. Skin is warm and dry. Well-perfused peripherally. Abdomen is soft overweight. Little tender in the epigastrium. Heart is in a regular rate and rhythm. Breathing easily. Const: Vital Signs, click to edit/add: Vital Signs - 24 hr 09/13/23 20:18 Temperature 97.4 F L Pulse Rate [Left P ulse Oximeter] 82 Respiratory Rate 16 Blood Pressure [Ri ght Upper Arm] 115/74 Pulse Oximetry 98 Oxygen Delivery Me thod Room Air Documenting provider has reviewed patient's vital signs: yes Course Vital Signs Vital signs: Initial Vital Signs Temperature 97.4 F L 09/13/23 20:18 Temperature Source Temporal Artery Scan 09/13/23 20:18 Pulse Rate 82 09/13/23 20:18 Pulse Rhythm Regular 09/13/23 20:18 Respiratory Rate 16 09/13/23 20:18 Blood Pressure 115/74 09/13/23 20:18 Blood Pressure Mean 87 09/13/23 20:18 Blood Pressure Position Sitting 09/13/23 20:18 Pulse Oximetry 98 09/13/23 20:18 Oxygen Delivery Method Room Air 09/13/23 20:18 Vital Signs Temperature 97.4 F L 09/13/23 20:18 Pulse Rate 82 09/13/23 20:18 Respiratory Rate 16 09/13/23 20:18 Blood Pressure 115/74 09/13/23 20:18 Pulse Oximetry 98 09/13/23 20:18 Oxygen Delivery Method Room Air 09/13/23 20:18 Temperature 97.4 F L 09/13/23 20:18 Pulse Rate 82 09/13/23 20:18 Respiratory Rate 16 09/13/23 20:18 Blood Pressure 115/74 09/13/23 20:18 Pulse Oximetry 98 09/13/23 20:18 Oxygen Delivery Method Room Air 09/13/23 20:18 Medications Administered Medications: Generic Name Dose Route Start Last Admin Trade Name Freq PRN Reason Stop Dose Admin Sodium Chloride 1,000 mls @ 1,000 mls/hr 09/13/23 21:10 09/13/23 22:27 0.9 % Sodium Chloride 1000 Ml IV 09/13/23 22:09 Infused .Q1H ONE Infusion Ondansetron HCl 4 mg 09/13/23 21:10 09/13/23 21:10 Ondansetron 2 Mg/Ml Inj IVP 09/13/23 21:11 4 mg ONCE ONE Administration Medical Decision Making MDM Narrative Medical decision making narrative: I do not think further labs are necessary. Looks better than last time here. I have ordered for L of normal saline and Zofran IV. On reassessment already seems to be improved. Reviewed record and see that urine culture has been resulted as a mixed Gram- positive. Would encourage her to make more use of ODT Zofran that she has and the prochlorperazine suppositories. Follow-up in approximately 36 hours in clinic as scheduled. Discharge Plan Discharge Clinical Impression: Vomiting during , Dehydration Patient Disposition: Home w/ Parent or Adult Condition: Improved Additional Instructions: Continue to focus on smaller frequent amounts of intake. I do think you should be taking your available antiemetics more regularly. Schedule either the Zofran or the Compazine perhaps every 6 hours regardless of how you are feeling over the next day and see how things go. Famotidine might be another option for heartburn symptoms. Understanding that the Zofran can make you constipated, I believe you are familiar with treatment for that possibility. Prescriptions: No Action sertraline 50 mg tablet 50 mg PO Q24H metoclopramide HCl [Reglan] 10 mg tablet 10 mg PO Q6H PRN (Reason: nausea and vomiting) Qty: 20 0RF Rx Instructions: May take 1/2 or 1 tablet ondansetron 4 mg tablet,disintegrating 4 mg PO Q6H PRN (Reason: nausea and vomiting) Qty: 20 0RF promethazine 25 mg suppository 25 mg ND QID PRN (Reason: nausea/vomiting) Qty: 12 1RF promethazine 25 mg suppository 25 mg ND Q6H PRN (Reason: nausea/vomiting) Qty: 1 1RF prochlorperazine 25 mg suppository 25 mg ND Q6H PRN (Reason: nausea/vomiting) Qty: 12 1RF ondansetron 4 mg tablet,disintegrating 4 mg PO Q6H Qty: 20 0RF prochlorperazine maleate [Compazine] 10 mg tablet 10 mg PO Q6H PRNQty: 15 0RF sucralfate [Carafate] 100 mg/mL suspension 10 ml PO BID Qty: 400 2RF metoclopramide HCl [Reglan] 10 mg tablet 10 mg PO Q6H PRN (Reason: nausea and vomiting) Qty: 20 0RF Follow Up/Referrals: Provider,Not a Local [Primary Care Provider] - Stand Alone Forms: [employer] Info Instructions
[2023-09-13] MEDS: 0.9 % SODIUM CHLORIDE 1000 ml 1,000 ML IV (21:10)
[2023-09-13] MEDS: ONDANSETRON 2 MG/ML inj 4 MG IVP (21:10)
--- OUTSIDE RECORDS SUMMARY | 2023-09-13 21:17 | XMS_ITS | Continuity of Care Document ---
Author Name Unknown Organization [facility] Address [address] [address] [place] [address] Phone Care Team Providers Care Can Feeder Name Role Phone Unavailable Unavailable Unavailable Allergies, [...] on Encounter Offic Cons New/estab Mod-hi [address] [facility], [address] [address], [place], [place], [id number], [place] tel:[phone] Pediatric [facility] Vomiting Alone No Information Family History Family Member Type Diagnosis Age At Onset No Information Payers Payer name Insurance type Covered democrat ID Authoriza tion(s) No Information Social History Type Description Quantity Date Captured Comments Sex Female Smoking Status No Information Chief Complaint And Reason For Visit No Information Reason For Referral Reason For Referral No Information History Of Present Illness Encounter [...]
[2023-09-13] MEDS: lidocaine HCL 4 % TOP SOLN 50 ML BOTTLE 7.5 ML PO (22:42)
[2023-09-13] MEDS: MAG HYDROX/ALUMINUM HYD/SIMETH 30 ML ORAL.SUSP PO (22:42)
== END 2023-09-13 23:15 | disposition home or self-care (01) ==
PROVIDERS: Emergency Provider Family Medicine
DX: R11.0 Nausea (principal); E86.0 Dehydration; Z3A.08 8 weeks gestation of pregnancy
CPT/HCPCS: 96374; 99283; 99284; A9270; J2405; J7030

== ENCOUNTER 2024-08-25 14:14 | Emergency (ER) | payer MEDICAID, SELFPAY ==
[2024-08-25 14:19] VITALS: BP 118/72; PULSE 105; RESP 18; TEMP 36; O2SAT 95; BMI 40.8
--- NOTE | 2024-08-25 14:41 | CRLHL7_ITS ---
For Patients: As a result of the Century Cures Act, medical imaging exams and procedure reports are released immediately into your electronic medical record. You may view this report before your referring provider. If you have questions, please contact your health care provider. INDICATION: right pelvic pain, hx of ovarian cysts COMPARISON: None TECHNIQUE: Farnsworth-scale and color Doppler ultrasound of the uterus and ovaries from a transvaginal approach. Transvaginal ultrasound of the pelvis was performed to better visualize the genitourinary organs, such as the ovaries and/or endometrium. Color-flow and spectral Doppler imaging of both ovaries is performed. FINDINGS: The uterus measures 7.1 x 4.1 x 4.0 cm and demonstrates normal echogenicity. No uterine masses. The endometrial stripe measures 0.7 cm in double thickness. No endometrial masses. The cervix is normal. The right ovary measures 3.1 x 1.7 x 2.4 cm. There are numerous small peripheral follicles without a dominant cystic lesion or solid ovarian / adnexal mass. There is normal arterial and venous color Doppler flow and normal arterial and venous waveforms on duplex Doppler. The left ovary measures 3.9 x 1.1 x 1.7 cm. There are numerous small peripheral follicles without a dominant cystic lesion or solid ovarian / adnexal mass. There is normal arterial and venous color Doppler flow and normal arterial and venous waveforms on duplex Doppler. Trace free fluid, likely physiologic. IMPRESSION: 1. The uterus and endometrium are unremarkable in appearance. 2. No sonographic evidence of ovarian torsion. 3. There are numerous small peripheral follicles in the bilateral ovaries, a nonspecific finding which can be seen with polycystic ovarian syndrome in the appropriate clinical context. Dictated by Gal Penaloza MD @ 08/25/2024 3:56:30 PM (Electronically Signed)
--- OUTSIDE RECORDS SUMMARY | 2024-08-25 14:49 | XMS_ITS | Clinical Summary ---
Author Organization [facility] Address [place], [place] [address] Care Team Providers Care Binder Selector Name Role Phone Joaquina Neves MD Primary Care Provider Allergies Active Allergy Reactions Criticality Noted Date Comments Hymenoptera Allergenic Extract Edema High 07/03 Sulfa (Sulfonamide Antibiotics) *Unknown 03/2017 Medications Medication Sig Dispensed Refills Start Date End Date Status hydrOXYzine HCL (ATARAX) 25 mg tabletIndication s:Anxiety and depression Take 1 Tablet (25 mg) by mouth every 6 hours if needed for Anxiety. Or sleep. 30 Tablet 05/14/2022 Active sertraline (ZOLOFT) 100 mg tabletIndication s:Anxiety and depression Take 1 Tablet (100 mg) by mouth once daily in the morning. 100 Tablet 3 03/25/2024 Active estradioL (ESTRACE) 0.01% (0.1 mg/g) vaginal creamIndications :Chronic vaginitis Insert 0.5 g into the vagina at bedtime. Place vaginally every night for 2 weeks then twice weekly ongoing. 42.5 g 3 04/23/2024 Active hydrOXYzine HCL (ATARAX) 25 mg tabletIndication s:Vulvar itching Take 1 Tablet (25 mg) by mouth every 6 hours if needed for Itching. 25 Tablet 01/21/2024 08/11/2024 Discontinued (*Patient states no longer taking) fluconazole (Diflucan) 150 mg tabletIndication s:Yeast vaginitis Take 1 Tablet (150 mg) by mouth every 72 hours for 2 doses. 2 Tablet 08/11/2024 08/15/2024 Active Problems Problem Noted Date Diagnosed Date Generalized anxiety disorder 08/30/2022 Resolved Problems Problem Noted Date Diagnosed Date Resolved Date 09/12/2023 12/30/2023 Overview (09/12/2023): Estimated Date of Delivery: None noted. Patient's last menstrual period was 07/31/2023 (exact date). GBS- 28wk labs- Last Tdap- 01/17/20 Last Flu vaccine- 08/15/20 OB Labs: Allergies Allergen Reactions Bee Sting [Hymenoptera Allergenic Extract] Edema Sulfa (Sulfonamide Antibiotics) *Unknown OB History Para Term AB Living 7 1 1 0 5 1 SAB IAB Ectopic Multiple Live Births 3 2 0 0 1 # Outcome Date GA Lbr Maikel/2nd Weight Sex Delivery Anes PTL Lv 7 Current 6 IAB 05/2023 5 IAB 01/2023 8w0d ELECTIVE AB 4 Term 02/14/20 39w2d / 01:34 3.74 kg (8 lb 3.9 oz) F Vag EPIDURAL AMENA Name: BG DARIO CLEMENTS Apgar1: 8 Apgar5: 9 3 2016 6w0d SPONTANEOUS 2 SAB 2015 6w0d SPONTANEOUS 1 SAB 2015 6w0d SPONTANEOUS Past Medical History: . Date Anemia 2019 In Depression Migraine headache STD (sexually transmitted disease) + Chlamydia 06/24 Unspecified epilepsy without mention of intractable epilepsy 02/2011 Seizure Disorder- off meds- no seizure since 2011 Urinary tract infection 2016 Once a month x6 months per pt report Past Surgical History: . Laterality Date TIBIA AND OR FIBULA SPLINT Right 2004 WISDOM TEETH EXTRACTION 2019 #7 Problems (from 09/12/23 to present) No problems associated with this episode. NIEVES PABON RN ....09/12/2023 3:25 PM 05/15/2023 09/12/2023 Overview (05/15/2023): Estimated Date of Delivery: 12/31/23 Patient's last menstrual period was 03/26/2023 (exact date). GBS- Last Tdap- 2019 Last Flu vaccine- 2019 Glucose (GTT) result- Recent Labs 05/06/23 1316 05/06/23 1310 HGB -- 11.9 L ABORH -- A Rh Positive RCBANTIBODY -- Negative TREPONEPALLI -- Negative RUBELLAIGG -- 3.73 Positive HBSAG -- Negative HEPCABY -- Non Reactive Comment [id number] -- Non Reactive VZIGGABY -- 228.9 Positive CHLAMYDIAPRB Negative -- NGONORRPROBE Negative -- Allergies Allergen Reactions Bee Sting [Hymenoptera Allergenic Extract] Edema Sulfa (Sulfonamide Antibiotics) *Unknown OB History Para Term AB Living 6 1 1 0 4 1 SAB IAB Ectopic Multiple Live Births 3 0 0 0 1 # Outcome Date GA Lbr Maikel/2nd Weight Sex Delivery Anes PTL Lv 6 Current 5 AB 01/2023 8w0d ELECTIVE AB 4 Term 02/14/20 39w2d / 01:34 3.74 kg (8 lb 3.9 oz) F Vag EPIDURAL AMENA Name: CORINA, DARIO Apgar1: 8 Apgar5: 9 3 2016 6w0d SPONTANEOUS 2 2015 6w0d SPONTANEOUS 1 2015 6w0d SPONTANEOUS Past Medical History: . Date Depression Migraine headache STD (sexually transmitted disease) + Chlamydia 06/24 Unspecified epilepsy without mention of intractable epilepsy 02/2011 Seizure Disorder- off meds- no seizure since 2011 Past Surgical History: . Laterality Date TIBIA AND OR FIBULA SPLINT Right 2004 WISDOM TEETH EXTRACTION 2019 No data on file. Problems (from 05/06/23 to present) No problems associated with this episode. 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 Exam (vaginal itching) 08/11/2024 Travel 08/10/2024 9:45 AM SUPPORT SERVICES MANAGER Office Visit [facility] [address] [place] [address] Kevin Mustafa PsyD, RENATO Individual Therapy 08/10/2024 Travel 08/09/2024 Travel 08/06/2024 1:30 PM CDT Telemedicine [facility] [address] [facility] [place] [address] Kevin Mustafa PsyD, LP Individual Therapy; Telehealth 08/06/2024 Travel from Last 3 Months Immunizations Name Administration Dates Next Due COVID-19 vaccine (Moderna 100mcg/0.5mL) PF, MDV 02/19/2021,01/22/2021 COVID-19 vaccine (Moderna Duc tierra 50mcg/0.25mL) PF, MDV 09/20/2021 DTP 08/04/1997, 7,1996,1995 DTP-HIB 01/13/1997,1996,1996 DTaP 06/03/2003, 7,01/13/1997,1996,1996 HIB PRP-T (ActHIB,Hiberix) 08/04/1997,,1996,1995 HPV 9 (Gardasil 9) 05/14/2022,01/15/2019, 017 Hepatitis B (Adult) 01/13/1997,1996,1995 Hepatitis B (Peds) 1996 Hepatitis B, Unspecified 01/13/1997,1996 Hib Conjugate, Unspecified 08/04/1997,,1996,1995 Inactivated Polio Vaccine 07/05/2002,07/1997,1996,1995 Influenza Virus, Unspecified 08/02/2019 Influenza, IIV3 (Age 6-35 mos) 07/05/2011 Influenza, IIV3 (Age >=3 years) 07/05/2011 Influenza, IIV4 08/02/2019 Influenza, IIV4 (=>6mos) MDV 08/15/2020 MMR 07/05/2002,09/30/1997 Oral Polio Vaccine 01/13/1997,1996, 996 TD, UNSPECIFIED 01/17/2020 Tdap 01/17/2020,06/21/2009 Family History Medical History Relation Name Comments Autism Brother 1 Samson Good Health Brother 1 Samson Autism Brother 2 Aiden Good Health Brother 2 Aiden Febrile seizures Daughter Melisa Diabetes Father Good Health Father Liver disease Father Tremor Father Coronary artery disease Maternal Grandmother cardiac arrest abou t 62yrs old Heart attack Maternal Grandmother Cleft palate Mother Good Health Mother Cancer-breast Other great-grandma (paternal) Cancer Paternal Grandfather unknown type - in remission Good Health Paternal Grandfather Asthma Paternal Grandmother Good Health Paternal Grandmother Lung disease Paternal Uncle pneumothroax several times Relation Name Status Comments Brother 1 Samson Alive Brother 2 Aiden Alive Daughter Melisa Alive Father Alive Maternal Grandfather Maternal Grandmother Mother Alive Other great-grandma (paternal) Alive Paternal Grandfather Alive Paternal Grandmother Alive Paternal Uncle Social History Tobacco Use Types Packs/Day Years Used Date Smoking Tobacco: Former Cigarettes 0.3 4 2 014 - 2017 Smokeless Tobacco: Never Tobacco Cessation:Counseling Given: Yes Alcohol Use Standard Drinks/Week Comments Not Currently 0 (1 standard drink = 0.6 oz pur e alcohol) PHQ-2 Answer Date Recorded PHQ-2 TOTAL SCORE 0 08/09/2024 Social Connections Answer Date Recorded Do you often feel lonely or isolated from those around you? 0 08/11/2024 Financial Resource Strain Answer Date R ecorded Difficulty of Paying Living Expenses 3 08/11/2024 Difficulty of Paying Living Expenses Not on file 08/11/2024 Food Insecurity Answer Date Recorded Do you worry your food will run out before you are able to buy more? 1 08/11/2024 Transportation Needs Answer Date Record ed Does lack of transportation keep you from medica l appointments? 1 08/11/2024 Does lack of transportation keep you from work, meetings or getting things that you need? 1 08/11/2024 Housing Stability Answer Date Recorded What is your housing situation today? 1 08/11/2024 Sex and Gender Information Value Date Recorded Sex Assigned at Female 11/21/2020 2:44 PM SUPPORT SERVICES MANAGER Gender Identity Female 11/21/2020 2:44 PM SUPPORT SERVICES MANAGER Sexual Orientation Bisexual 11/21/2020 2: 44 PM SUPPORT SERVICES MANAGER Obstetrics History Para Term AB IAB SAB Ectopic Multiple Livin g Live Births 7 1 1 0 5 2 3 0 0 1 1 Date Outcome GA Total Labor Labor/2nd/3rd Weight Sex Type Anes PTL Amena A1 A5 Name Clin 2016 SAB 6w0 d SPONTA NEOUS 2015 SAB 6w0 d SPONTA NEOUS 2016 SAB 6w0 d SPONTA NEOUS 2019 Term 39w 2d 1h 34m/0h 04m 3.74 kg (8 lb 3.9 oz) F Vag Epidur al Livin g 8 9 MORIA RTY,B G LINNEA S Dumer mayelin Delivery [facility] 3 IAB 8w0 d ELECTI VE AB 3 IAB Last Filed Vital Signs Vital Sign Reading Time Taken Comments Blood Pressure 118/70 08/11/2024 2:23 PM SUPPORT SERVICES MANAGER Pulse 82 08/11/2024 2:23 PM SUPPORT SERVICES MANAGER Temperature 36.8 C (98.2 F) 12/30/2023 10:50 AM CDT Respiratory Rate 16 02/15/2020 8:07 AM CDT Oxygen Saturation 99% 04/21/2024 9:22 AM CDT Inhaled Oxygen Concentration - - Weight 107.1 kg (236 lb 3.2 oz) 08/11/2024 2:23 PM SUPPORT SERVICES MANAGER Height 166.6 cm (5' 5.59) 08/11/2024 2:23 PM CS T Body Mass Index 38.6 08/11/2024 2:23 PM SUPPORT SERVICES MANAGER Plan of Treatment Health Maintenance Due Date Last Done Comments COVID-19 vaccine series ( season) 2024 09/20/2021, 02/19/2021, 01/22/2021 Influenza for age 9-49 06/06/2024 0, 08/02/2019, 08/02/2019, Additional history exists BMI (ht and wt on same day) for age 18+ 08/11/2025 08/11/2024, 09/12/2023, 05/06/2023, Additional history exists Depression screening for age 12+ 08/11/2025 08/11/2024, 08/10/2024, 08/09/2024, Additional history exists Pap test for age 21-65 03/11/2028 , 03/11/2023, 03/27/2020, Additional history exists Tetanus booster 01/16/2030 01/17/2020, 01/04, 06/21/2009 Tdap Completed 01/17/2020, 06/21/2009 HIV for age 15-65 Completed 09/12/2023, , 07/16/2022, Additional history exists Hepatitis C screening for age 18-79 Completed 09/12/2023, 05/06/2023, 07/05/2019 Pneumococcal series for age 6-64 Aged Out No longer eligible based on patient's age to complete this topic Procedures Procedure Name Priority Date/Time Associated Diagnosis Comments TRICHOMONAS, JOHANA, AND BACTERIAL VAGINOSIS BY FRANCES Routine 08/11/2024 2:00 PM SUPPORT SERVICES MANAGER Yeast vaginitis ANTI HIV 1/2 Routine 09/12/2023 2:44 PM SUPPORT SERVICES MANAGER Encounter for supervision of other normal in first trimester ANTI HCV Routine 09/12/2023 2:44 PM SUPPORT SERVICES MANAGER Encounter for supervision of other normal in first trimester HPV HIGH RISK Routine 03/11/2023 9:15 AM CDT Screening for malignant neoplasm of the cervix from Last 3 Months or Most Recently Relevant to Health Maintenance Results * (ABNORMAL) TRICHOMONAS, JOHANA, AND BACTERIAL VAGINOSIS BY FRANCES (08/11/2024 2:00 PM SUPPORT SERVICES MANAGER) JOHANA SPECIES Positive(A) Negative 08/12/20 3:25 AM SUPPORT SERVICES MANAGER [facility] JOHANA GLABRATA Negative Negative 08/12/2024 3:25 AM SUPPORT SERVICES MANAGER [facility] TRICHOMONAS VVA Negative Negative 3:25 AM SUPPORT SERVICES MANAGER [facility] BACTERIAL VAGINOSIS Negative Negative 08/12/2024 3:25 AM SUPPORT SERVICES MANAGER [facility] Other VAGINAL SWAB / Unknown Non-Blood / Unknown 08/11/2024 2:00 PM SUPPORT SERVICES MANAGER 08/11/2024 2:37 PM SUPPORT SERVICES MANAGER Brian Gao MD MICROBIOL OGY Performing Organization Address [facility] [address]/[facility] Co de Phone Number [facility] [address] [place] [address], * ANTI HCV (09/12/2023 2:44 PM SUPPORT SERVICES MANAGER) HEPATITIS C ANTIBODY Non-Reacti ve Non-React blanka 09/12/2023 10:08 PM SUPPORT SERVICES MANAGER [facility] Comment:Please note, per www .CDC.gov: If a patient is known to be at high risk of HCV infection, or is symptomatic, and the physician's suspicion of HCV infection is high, HCV RNA testing is often employed and is of diagnostic value, even after an initial negative anti-HCV test result. Blood BLOOD SPECIMEN / Unknown Venipuncture / Unknown 09/12/2023 2:44 PM SUPPORT SERVICES MANAGER 09/12/2023 2:47 PM SUPPORT SERVICES MANAGER Joaquina Neves MD SEND OUTS Performing Organization Address [facility] [address]/[facility] Co de Phone Number [facility] [address] [place] [address], * ANTI HIV 1/2 (09/12/2023 2:44 PM SUPPORT SERVICES MANAGER) HIV-1/HIV-2 SCREEN Non-Reacti ve Non-Reacti ve 09/12/2023 10:10 PM SUPPORT SERVICES MANAGER [facility] Comment:HIV-1 p24 and HIV-1/ HIV-2 Ab Not Detected. Blood BLOOD SPECIMEN / Unknown Venipuncture / Unknown 09/12/2023 2:44 PM SUPPORT SERVICES MANAGER 09/12/2023 2:47 PM SUPPORT SERVICES MANAGER Joaquina Neves MD SEND OUTS [facility] [address] [place] [address], * HPV HIGH RISK (03/11/2023 9:15 AM CDT) TYPE 16 Negative Negative 03/14/2023 5:30 AM CDT [facility] TYPE 18 Negative Negative 03/14/2023 5:30 AM CDT [facility] OTHER HIGH RISK TYPES Negative Negative 03/14/2023 5:30 AM CDT [facility] Other (Cervical) Non-Blood / Unknown 03/11/2023 9:15 AM CDT 03/12/2023 12:04 PM CDT Narrative [facility] - 03/14/2023 5:30 AM CDT HPV types 16, 18, 31, 33, 35, 39, 45, 51, 52, 56, 58, 59, 66 and 68 DNA were undetectable or below the pre-set threshold. Methodology: Keila Anaid 4800 HPV Test Zenaida ROTH MICROBIOLOGY Performing Organization Address City/[facility] [address]/ZIP Co de Phone Number [facility] [address] [place] [address], from Last 3 Months or Most Recently Relevant to Health Maintenance Advance Directives * Full Code (Latest Code Status on File) Date Activated Date Inactivated Comments 02/13/2020 5:49 PM 02/15/2020 4:58 PM * Full Code Date Activated Date Inactivated Comments 07/03/2011 2:23 AM 07/05/2011 2:49 PM Care Teams Binder Selector Relationship Specialty Start Date End Date Joaquina Neves MD [address] [place] [address] PCP - General Family Practice 05/06/23
[2024-08-25 14:59] LABS: Appearance Urine Cloudy (Clear); Bilirubin Urine Negative (Negative); Blood Urine Trace-intact (Negative); Color Urine Yellow (Yellow); Glucose Urine Negative (Negative); Ketones Urine Negative (Negative); Leukocyte Esterase Urine 1+ (Negative); Nitrite Urine Negative (Negative); Protein Urine Negative (Negative); Specific Gravity Urine 1.025 (1.000-1.030); Urobilinogen Urine 0.2 (0.2-1.0)
[2024-08-25 15:00] VITALS: PULSE 76; O2SAT 99
--- NOTE | 2024-08-25 15:00 | ED_ITS ---
HPI - Abdominal Pain General Date Seen: 08/25/24 Chief Complaint: Abdominal Pain Stated Complaint: pelvic pain, headache Time Seen by Provider: 08/25/24 14:31 Source: patient Mode of arrival: ambulatory Limitations: no limitations History of Present Illness HPI narrative: patient is a 29-year-old female presenting to the emergency department for right pelvic pain. She states the pelvic pain started yesterday in his the right pelvic region. Pain will radiate down her leg. It has been intermittent in nature and states is a 10/10 at worse but is currently just a dull ache. Has not had symptoms like this before. Does states she has had previous ovarian cyst but at that time pain was not radiating anywhere. Also notes she has not had her period since June she typically has every month. She has seen Ob /Gyne for this earlier this month and they are aware. Denies dysuria, polyuria, vaginal discharge, vaginal bleeding, nausea, vomiting, abdominal pain, lightheadedness, dizziness, weakness, numbness, chest pain, shortness of breath. Has been eating and drinking normally without issues. Is also complaining of a headache. On the left parietal portion of her skull she has some tenderness to palpation to go in for the past week. She also states it is very tender to light touch. Has had the symptoms for the past week. No other injuries noted. Pain is not always there. has not had symptoms like this before she states. Has not had any associated vision changes, lightheadedness, dizziness, weakness, numbness. Related Data Home Medications ?Medication ?Instructions ?Recorded ?Confirmed sertraline 50 mg tablet 50 mg PO Q24H 06/20/22 08/25/24 Previous Rx's ?Medication ?Instructions ?Recorded ondansetron 4 mg disintegrating 4 mg PO Q6H #20 tabs 12/30/22 tablet metoclopramide HCl 10 mg tablet 10 mg PO Q6H PRN nausea and 01/02/23 (Reglan) vomiting #20 tabs prochlorperazine maleate 10 mg 10 mg PO Q6H PRN #15 tabs 01/08/23 tablet (Compazine) sucralfate 100 mg/mL oral 10 ml PO BID #400 mL 01/08/23 suspension (Carafate) ondansetron 4 mg disintegrating 4 mg PO Q6H PRN nausea and 05/13/23 tablet vomiting #20 tabs metoclopramide HCl 10 mg tablet 10 mg PO Q6H PRN nausea and 09/10/23 (Reglan) vomiting #20 tabs promethazine 25 mg rectal 25 mg NC QID PRN nausea/vomiting 09/12/23 suppository #12 ea prochlorperazine 25 mg rectal 25 mg NC Q6H PRN nausea/vomiting 09/13/23 suppository #12 ea promethazine 25 mg rectal 25 mg NC Q6H PRN nausea/vomiting 09/13/23 suppository #1 ea Allergies Allergy/AdvReac Type Severity Reaction Status Date / Time bee venom protein (honey bee) Allergy Severe Anaphylaxis Verified 09/12/23 15:37 Sulfa (Sulfonamide Allergy Unknown Runs in Verified 09/12/23 15:37 Antibiotics) the Family Review of Systems Status of ROS Reports: 10 or more systems reviewed and unremarkable except as noted in History and below [facility] Medical History History of vaginal delivery (02/14/20) Observed seizure-like activity (2010) ?R56.9 - Unspecified convulsions (ICD-10) Tibia/fibula fracture ?S82.209A - Unspecified fracture of shaft of unspecified tibia, initial encounter for closed fracture (ICD-10) ?S82.409A - Unspecified fracture of shaft of unspecified fibula, initial encounter for closed fracture (ICD-10) STD (sexually transmitted disease) ?A64 - Unspecified sexually transmitted disease (ICD-10) Social History Smoking Status: Former smoker Do you use any of these nicotine containing products: None Second hand tobacco smoke exposure: No How often do you have a drink containing alcohol: never How often do you have six or more drinks on one occasion: Never AUDIT-C Alcohol total score: 0 Non-prescribed substance use: denies use service: No Exam Narrative: Exam Narrative: Const: Well-nourished, Well-developed, in mild distress Eyes: PERRL, no conjunctival injection, and symmetrical lids HENT: Atraumatic external nose and ears. Moist mucous membranes. Mild tenderness palpation left parietal region about a 2 x 2 cm area Neck: Symmetric, trachea midline, No thyromegaly. CVS: RRR, No murmurs or gallops. Peripheral pulses 2+ and equal in all extremities RESP: Unlabored respiratory effort. Clear to auscultation bilaterally. GI: Nontender/Nondistended, No rebound or guarding. MSK:Extremities w/o deformity, Normal Active ROM Skin: Warm, Dry. No rashes or lesions. Neuro: Normal Muscle tone, No focal neurological deficits. Psych: Awake, Alert, & Oriented x3. Appropriate mood and affect. Const: Vital Signs, click to edit/add: Vital Signs - 24 hr 08/25/24 14:19 08/25/24 15:00 Temperature 96.8 F L Pulse Rate 76 Pulse Rate [Pulse Oximeter] 105 H Respiratory Rate 18 Blood Pressure [Ri ght Upper Arm] 118/72 Pulse Oximetry 95 99 Oxygen Delivery Me thod Room Air Room Air Course Vital Signs Vital signs: Initial Vital Signs Temperature 96.8 F L 08/25/24 14:19 Temperature Source Temporal Artery Scan 08/25/24 14:19 Pulse Rate 105 H 08/25/24 14:19 Respiratory Rate 18 08/25/24 14:19 Blood Pressure 118/72 08/25/24 14:19 Blood Pressure Mean 87 08/25/24 14:19 Pulse Oximetry 95 08/25/24 14:19 Oxygen Delivery Method Room Air 08/25/24 14:19 Vital Signs Temperature 96.8 F L 08/25/24 14:19 Pulse Rate 105 H 08/25/24 14:19 Respiratory Rate 18 08/25/24 14:19 Blood Pressure 118/72 08/25/24 14:19 Pulse Oximetry 95 08/25/24 14:19 Oxygen Delivery Method Room Air 08/25/24 14:19 Temperature 96.8 F L 08/25/24 14:19 Pulse Rate 76 08/25/24 15:00 Respiratory Rate 18 08/25/24 14:19 Blood Pressure 118/72 08/25/24 14:19 Pulse Oximetry 99 08/25/24 15:00 Oxygen Delivery Method Room Air 08/25/24 15:00 MDM - Abdominal Pain MDM Narrative Medical decision making narrative: patient is a 29-year-old female presenting to emergency department for pelvic pain and a headache. for pelvic pain I do have some concerns for ovarian torsion. She does have a history of ovarian cyst. This could be intermittent torsion considering the intermittent nature of her pain and I will do a ultrasound. Based on her clinical presentation at this time though I do not believe she is currently torsed. Appendicitis is also my differential but seems unlikely concerning location of the pain and intermittent nature of it. Will do a CBC and BMP along with urinalysis and urine test to look for other signs of infection. Will hold off on doing CT scan pending lab work and ultrasound. patient's lab work showed no concerning abnormalities other than a hemoglobin of 10.7 and a sodium of 129. These are abnormally low compared to her baseline. They are unlikely to be causing her symptoms at this time and there is no signs of any acute bleeding. I informed her to follow up with her primary care provider for repeat lab work, next few days. She is agreeable to this plan. Ultrasound shows normal-appearing ovaries other than some peripheral follicles that a could be related to polycystic ovarian syndrome. This could be consistent with her for amenorrhea. considering her normal white count and again location of her pain I do not find it necessary to do a CT scan and I spoke to the patient about this. She is agreeable to not doing a CT scan at this time. Seems like her pain could be related to ligamentous injury compression considering it radiates all the way down her leg. She will be discharged she is agreeable to this plan. For her headache in seems to be a simple Neurology a considering the location and the tenderness to light touch. Considering the pain is on the outside of this go seems very unlikely there is intracranial issue at this time. Did not feel any palpable skull fractures. I do not believe head imaging is necessary. Patient is not want an injection for the pain at this time. She can follow up with her primary care provider about this also. She is agreeable to this plan Lab Data Labs: Lab Results 08/25/24 08/25/24 Range/Units 14:50 Unknown WBC 5.54 (4.50-11.00) K/uL RBC 4.52 (4.00-5.20) m/uL Hgb 10.7 L (12.0-16.0) gm/dL Hct 35.0 (33.0-51.0) % MCV 77 L (80-100) fL MCH 24 L (26-34) pg MCHC 31 L (32-36) gm/dL RDW Coeff of Juancho 14.5 (11.5-15.5) % Plt Count 345 (140-440) K/uL Neut % (Auto) 59.4 (42.0-72.0) % Lymph % (Auto) 31.9 (20-44) % Hardeman % (Auto) 7.6 (0.0-11.0) % Eos % (Auto) 0.4 (0.0-7.0) % Baso % (Auto) 0.5 (0.0-3.0) % Neut # (Auto) 3.29 (1.7-7.0) K/uL Lymph # (Auto) 1.77 (0.90-2.90) K/uL Hardeman # (Auto) 0.40 (0.00-0.90) K/UL Eos # (Auto) 0.02 (0.00-0.50) K/uL Baso # (Auto) 0.03 (0.00-0.30) K/uL Abs Immat Gran (auto) 0.01 (0.00-0.30) K/uL Imm/Tot Granulo (auto) 0.2 % Sodium 129 L (135-149) mmol/L Potassium 3.9 (3.6-5.1) mmol/L Chloride 102 (96-114) mmol/L Carbon Dioxide 27 (20-32) mmol/L Anion Gap 0 L (7-15) mEq/L BUN 11 (5-24) mg/dL Creatinine 0.6 (0.5-1.5) mg/dL Estimated Creat Clear 125.61 Estimated GFR 125 ml/min Glucose 123 H (60-115) mg/dL Calcium 9.2 (8.4-10.6) mg/dL Total Bilirubin 0.2 (0.1-1.5) mg/dL AST 24 (12-35) U/L ALT 21 (4-35) U/L Alkaline Phosphatase 70 (40-150) U/L Total Protein 7.3 (6.0-8.3) g/dL Albumin 4.1 (3.3-5.0) g/dL Urine Color Yellow (Yellow) Urine Appearance Cloudy A (Clear) Urine pH 8.0 (5.0-8.5) Ur Specific [place] 1.025 (1.000-1.030) Urine Protein Negative (Negative) Urine Glucose (UA) Negative (Negative) Urine Ketones Negative (Negative) Urine Blood Trace-intact A (Negative) Urine Nitrite Negative (Negative) Urine Bilirubin Negative (Negative) Urine Urobilinogen 0.2 (0.2-1.0) Ur Leukocyte Esterase 1+ A (Negative) Urine RBC 0-2 (0-2) Urine WBC 2-5 (0-5) Ur Squamous Epith Cells None (None-Few) Urine Bacteria Few A (None) Urine HCG, Qual Negative (Negative) Imaging Data pelvic ultrasound: Attestation: I have reviewed the pertinent imaging results. Radiologist's impression: 1. The uterus and endometrium are unremarkable in appearance. 2. No sonographic evidence of ovarian torsion. 3. There are numerous small peripheral follicles in the bilateral ovaries, a nonspecific finding which can be seen with polycystic ovarian syndrome in the appropriate clinical context. Dictated by Gal Penaloza MD @ 08/25/2024 3:56:30 PM Discharge Plan Discharge Clinical Impression: Pelvic pain Occipital neuralgia Qualifiers: Laterality: left Qualified Code(s): M54.81 - Occipital neuralgia Patient Disposition: Home, Self-Care Condition: Stable Instructions: Pelvic Pain in Women (ED) Additional Instructions: No ovarian cysts were seen on your ultrasound and an ovarian torsion is unlikely at this time. Follicles were seen that could be consistent with polycystic ovarian syndrome. This could be consistent with your decreased periods. Follow-up with your OB Gyne for this. If pelvic pain worsens you can return for re-evaluation for possible further imaging. Your headache seems likely to be from occipital neuralgia. Follow-up with the primary care provider symptoms are not improving. Take Tylenol and ibuprofen for pain. Lab work showed you are slightly anemic and have a low sodium. Neither these are emergent issues at this time but you should have follow-up with the primary care provider for repeat lab work. Prescriptions: No Action sertraline 50 mg tablet 50 mg PO Q24H metoclopramide HCl [Reglan] 10 mg tablet 10 mg PO Q6H PRN (Reason: nausea and vomiting) Qty: 20 0RF Rx Instructions: May take 1/2 or 1 tablet ondansetron 4 mg tablet,disintegrating 4 mg PO Q6H PRN (Reason: nausea and vomiting) Qty: 20 0RF promethazine 25 mg suppository 25 mg NC QID PRN (Reason: nausea/vomiting) Qty: 12 1RF promethazine 25 mg suppository 25 mg NC Q6H PRN (Reason: nausea/vomiting) Qty: 1 1RF prochlorperazine 25 mg suppository 25 mg NC Q6H PRN (Reason: nausea/vomiting) Qty: 12 1RF ondansetron 4 mg tablet,disintegrating 4 mg PO Q6H Qty: 20 0RF prochlorperazine maleate [Compazine] 10 mg tablet 10 mg PO Q6H PRNQty: 15 0RF sucralfate [Carafate] 100 mg/mL suspension 10 ml PO BID Qty: 400 2RF metoclopramide HCl [Reglan] 10 mg tablet 10 mg PO Q6H PRN (Reason: nausea and vomiting) Qty: 20 0RF Follow Up/Referrals: Provider,Not a Local [Primary Care Provider] - Stand Alone Forms: [facility] Info Instructions
[2024-08-25 15:03] LABS: Ur HCG Qualitative* Negative (Negative)
[2024-08-25 15:05] LABS: Bacteria Urine Few; RBC Urine 0-2 (0-2)
[2024-08-25 15:06] VITALS: BP 109/52; PULSE 73; O2SAT 97
[2024-08-25 15:12] LABS: Albumin* 4.1 g/dL (3.3-5.0); Chloride* 102 mmol/L (96-114)
[2024-08-25 15:13] LABS: Basophils Absolute Auto 0.03 K/uL (0.00-0.30); Basophils Percent Auto 0.5 % (0.0-3.0); Eosinophils Absolute Auto 0.02 K/uL (0.00-0.50); Eosinophils Percent Auto 0.4 % (0.0-7.0); Hemoglobin* 10.7 gm/dL (12.0-16.0); Immature Granulocytes Abs Auto 0.01 K/uL (0.00-0.30); Immature Granulocytes Pct Auto 0.2 %; Lymphocytes Absolute Auto 1.77 K/uL (0.90-2.90); Lymphocytes Percent Auto 31.9 % (20-44); Mean Corpuscular HGB Conc 31 gm/dL (32-36); Mean Corpuscular Hemoglobin 24 pg (26-34); Mean Corpuscular Volume 77 fL (80-100); Monocytes Percent Auto 7.6 % (0.0-11.0); Neutrophils Absolute Auto 3.29 K/uL (1.7-7.0); Neutrophils Percent Auto 59.4 % (42.0-72.0); Platelet Count* 345 K/uL (140-440); Potassium* 3.9 mmol/L (3.6-5.1); RDW Coefficient of Variation % 14.5 % (11.5-15.5); Red Blood Count 4.52 m/uL (4.00-5.20); Sodium* 129 mmol/L (135-149); White Blood Count* 5.54 K/uL (4.50-11.00)
[2024-08-25 15:15] LABS: Anion Gap 0 mEq/L (7-15); Aspartate Amino Transferase* 24 U/L (12-35); Bilirubin Total* 0.2 mg/dL (0.1-1.5); Carbon Dioxide* 27 mmol/L (20-32); Creatinine* 0.6 mg/dL (0.5-1.5); Est. Creatinine Clearance* 125.61; Estimated Glomerular Filt Rate 125 ml/min; Total Protein* 7.3 g/dL (6.0-8.3)
[2024-08-25 15:16] LABS: Alanine Aminotransferase* 21 U/L (4-35); Alkaline Phosphatase* 70 U/L (40-150); Blood Urea Nitrogen* 11 mg/dL (5-24); Calcium* 9.2 mg/dL (8.4-10.6); Glucose* 123 mg/dL (60-115)
[2024-08-25 15:20] LABS: Slide Review Reflex No
[2024-08-25 15:32] VITALS: BP 97/61; PULSE 73; O2SAT 98
[2024-08-25 16:02] VITALS: BP 99/65; PULSE 82; RESP 18; O2SAT 97
== END 2024-08-25 16:24 | disposition home or self-care (01) ==
PROVIDERS: Emergency Provider Student in an Organized Health Care Education/Training Program
DX: R10.9 Unspecified abdominal pain (principal); M54.81 Occipital neuralgia
CPT/HCPCS: 36415; 76830; 80053; 81001; 81025; 85025; 87086; 93976; 99284

== ENCOUNTER 2025-07-16 14:37 | Outpatient (CLI) | payer MEDICAID, SELFPAY | END 2025-07-16 14:38 | disposition home or self-care (01) | LOC: NFLDUCREF 14:39 | PROVIDERS: PCP Family Medicine; Visit Provider Nurse Practitioner Family | DX: R11.2 Nausea with vomiting, unspecified (principal) | CPT/HCPCS: 87086 ==

== ENCOUNTER 2025-07-18 10:18 | Emergency (ER) | payer MEDICAID, SELFPAY ==
[2025-07-18 10:21] VITALS: BP 116/81; PULSE 111; RESP 18; TEMP 36.6; O2SAT 98; BMI 38.3
--- OUTSIDE RECORDS SUMMARY | 2025-07-18 10:24 | XMS_ITS | Clinical Summary ---
Author Organization [facility] Address [address] [place] [address] Care Team Providers Care Station Helper Name Role Phone Joaquina Neves MD Primary Care Provider Allergies Active Allergy Reactions Criticality Noted Date Comments Hymenoptera Allergenic Extract Edema High 07/03 Sulfa (Sulfonamide Antibiotics) *Unknown 03/2017 Medications hydrOXYzine HCL (ATARAX) 25 mg tabletIndications:Anxie ty and depression Take 1 Tablet (25 mg) by mouth every 6 hours if needed for Anxiety. Or sleep. 30 Tablet 022 Active estradioL (ESTRACE) 0.01% (0.1 mg/g) vaginal creamIndications:Chroni c vaginitis Insert 0.5 g into the vagina at bedtime. Place vaginally every night for 2 weeks then twice weekly ongoing. 42.5 g 3 024 Active ferrous gluconate 324 mg (37 mg iron) tabletIndications:Iron deficiency anemia due to chronic blood loss Take 1 Tablet by mouth once daily with a meal. 90 Tablet 1 024 Active sertraline 100 mg tabletIndications:Anxie ty and depression TAKE 1 TABLET(100 MG) BY MOUTH DAILY IN THE MORNING 100 Tablet 1 025 Active atorvastatin 20 mg tabletIndications:Famil ial hypercholesterolemia Take 1 Tablet (20 mg) by mouth at bedtime. 93 Tablet 3 025 Active semaglutide (weight loss) (Wegovy) 1 mg/0.5 mL subcutaneous penIndications:Class 2 severe obesity with body mass index (BMI) of 35 to 39.9 with serious comorbidity Inject 1 mg subcutaneous once weekly. 2 mL 025 Active semaglutide (weight loss) (Wegovy) 1.7 mg/0.75 mL subcutaneous penIndications:Class 2 severe obesity with body mass index (BMI) of 35 to 39.9 with serious comorbidity Inject 1.7 mg subcutaneous once weekly for 28 days. 3 mL 025 2024 Active semaglutide (weight loss) (Wegovy) 0.5 mg/0.5 mL subcutaneous penIndications:Class 2 severe obesity with body mass index (BMI) of 35 to 39.9 with serious comorbidity Inject 0.5 mg subcutaneous once weekly for 28 days. 2 mL 025 2024 Hospital, Clinic, or Other Facility Administered Medication Ordered Dose Route Frequency Start Date End Date Status levonorgestrel (MIRENA) 21 mcg/24 hours (8 yrs) 52 mg intrauterine device (IUD) 1 DeviceIndications:Encounter for IUD insertion 1 Device IU Q 8 YEARS 05/05/2025 Active Active Problems Problem Noted Date Diagnosed Date PCOS (polycystic ovarian syndrome) 09/10/2024 Generalized anxiety disorder 08/30/2022 Resolved Problems Problem [...] -- Negative HEPCABY -- Non Reactive Comment [id number] -- Non Reactive VZIGGABY -- 228.9 Positive [...] Encounters Date Type Department Care Team Description 07/18/2025 Nurse Triage [facility] [address] [place] [address] Joaquina Neves MD Abdominal Pain 07/13/2025 11:15 AM CDT Office Visit [facility] [address] [place] [address] Joaquina Neves MD Follow Up (weight loss) 07/12/2025 Travel 06/02/2025 10:25 AM CDT Office Visit [facility] [address] [place] [address] Joaquina Neves MD IUD (string check); Medication Management (wegovy) 06/01/2025 Travel 05/05/2025 1:05 PM CDT Office Visit [facility] [address] [place] [address] Joaquina Neves MD Contraception (Patient would like the merana IUD ) 05/04/2025 11:00 AM CDT Office Visit [facility] [address] [place] [address] Kevin Mustafa PsyD, LP Individual Therapy; Trmt Plan 05/04/2025 Travel 05/03/2025 Telephone [facility] [address] [place] [address] Joaquina Neves MD Prior Authorization (semaglutide (Wegovy) 0.25 mg/0.5 mL subcutaneous pen APPROVED 05/06/25-11/06/25) 04/27/2025 10:00 AM CDT Office Visit [facility] [address] [place] [address] Kevin Mustafa PsyD, LP Individual Therapy 04/26/2025 Travel 04/22/2025 Telephone [facility] [address] [place] [address] Joaquina Neves MD Prior Authorization (tirzepatide (weight loss) (Zepbound) 2.5 mg/0.5 mL pen - DENIED ) 04/17/2025 5:50 PM CDT E-Visit [facility] [address] [place] [address] Joaquina Neves MD eVisit for Vaginal Discharge / Irritation from Last 3 Months Immunizations Immunization Administration Dates Next Due COVID-19 vaccine (Moderna [...] Former Cigarettes 0.3 4 2 014 - 2018 Smokeless Tobacco: Never Tobacco Cessation:Counseling Given: Yes Alcohol Use Standard Drinks/Week Comments Not Currently 0 (1 standard drink = 0.6 oz pur e alcohol) PHQ-2 Answer Date Recorded PHQ-2 TOTAL SCORE 1 05/04/2025 Social Connections Answer Date Recorded Do you often feel lonely or isolated from those around you? 0 08/11/2024 Alcohol Use Answer Date Recorded How often do you have a drink containing alcohol ? 0 07/13/2025 Average Number of Drinks Not on file 025 How often do you have five or more drinks on one occasion? 0 07/13/2025 Financial Resource Strain Answer Date R ecorded [...] is your housing situation today? 1 08/11/2024 Utilities Answer Date Recorded Do you have trouble paying f or utilities (for example, heat, electricity, water, phone)? 1 08/11/2024 Comments No Sex and Gender Information Value Date Recorded Sex Assigned at Female 11/21/2020 2:44 PM GAMEPLAY ENGINEER Legal Sex Female 7:41 AM GAMEPLAY ENGINEER Gender Identity Female 11/21/2020 2:44 PM GAMEPLAY ENGINEER Sexual Orientation Bisexual 11/21/2020 2: 44 PM GAMEPLAY ENGINEER Obstetrics History Para Term AB IAB SAB Ectopic Multiple Livin g Live Births 7 1 1 0 5 2 3 0 0 1 1 Date Outcome GA Total Labor Labor/2nd/3rd Weight Sex Type Anes PTL Amena A1 A5 Name Clin 2015 SAB 6w0 d SPONTA NEOUS 2015 SAB 6w0 d SPONTA NEOUS 2016 SAB 6w0 d SPONTA NEOUS 2019 Term 39w 2d 1h 34m/0h 04m 3.74 kg (8 lb 3.9 oz) F Vag Epidur al Livin g 8 9 MORIA RTY,B G LINNEA S Dumer mayelin Delivery [facility] L[facility]) 3 IAB 8w0 d ELECTI VE AB 3 IAB Last Filed Vital Signs Vital Sign Reading Time Taken Comments Blood Pressure 107/70 07/13/2025 11:19 AM CDT Pulse 110 07/13/2025 11:19 AM CDT Temperature 36.9 C (98.4 F) 07/13/2025 11:19 AM CDT Respiratory Rate 16 02/15/2020 8:07 AM CDT Oxygen Saturation 96% 07/13/2025 11:19 AM CDT Inhaled Oxygen Concentration - - Weight 104.3 kg (230 lb) 07/13/2025 11:19 AM CDT Height 167.6 cm (5' 6) 07/13/2025 11:19 AM CDT Body Mass Index 37.12 07/13/2025 11:19 AM CDT Plan of Treatment Health Maintenance Due Date Last Done Comments COVID-19 vaccine series ( season) 2025 09/20/2021, 02/19/2021, 01/22/2021 Influenza Vaccine (#1) 2025 , 08/02/2019, 08/02/2019, Additional history exists Depression screening for age 12+ 05/05/2026 05/05/2025, 05/04/2025 BMI (ht and wt on same day) for age 18+ 07/13/2026 07/13/2025, 09/08/2024, 08/11/2024, Additional history exists Pap test for age 21-65 03/11/2028 , 03/11/2023, 03/27/2020, Additional history exists Tetanus booster 01/16/2030 01/17/2020, 01/04, 06/21/2009 RSV vaccine for adults or (1 - 1-dose 75+ series) 2071 Hepatitis B series for 19+ Completed 01/13, 01/13/1997, 1996, Additional history exists HPV series for age 9-45 Completed 05/14/20, 01/15/2019, 06/12/2017 HIV for age 15-65 Completed 09/12/2023, , 07/16/2022, Additional history exists Hepatitis C screening for age 18-79 Completed 09/12/2023, 05/06/2023, 07/05/2019 Pneumococcal series for age 6-49 Aged Out No longer eligible based on patient's age to complete this topic Procedures Procedure Name Priority Date/Time Associated Diagnosis Comments URINE POCT Routine 05/05/2025 1:16 PM CDT Encounter for IUD insertion ANTI HIV 1/2 Routine 09/12/2023 2:44 PM GAMEPLAY ENGINEER Encounter for supervision of other normal in first trimester (HC) ANTI HCV Routine 09/12/2023 2:44 PM GAMEPLAY ENGINEER Encounter for supervision of other normal in first trimester (HC) HPV HIGH RISK Routine 03/11/2023 9:15 AM CDT Screening for malignant neoplasm of the cervix from Last 3 Months or Most Recently Relevant to Health Maintenance Results * POCT Urine (05/05/2025 1:16 PM CDT) Pathologist [facility] POC HCG URINE NEGATIVE NEGATIVE [facility] Urine URINE SPECIMEN / Unknown 05/05/2025 1:16 PM CDT 05/05/2025 1:17 PM CDT us Joaquina Neves MD URINE Final Resul t [facility] [address] [place] [address], [facility] [address] [place] [address] * ANTI HCV (09/12/2023 2:44 PM GAMEPLAY ENGINEER) Pathologist [facility] HEPATITIS C ANTIBODY Non-Reacti ve Non-React blanka 09/12/2023 10:08 PM GAMEPLAY ENGINEER [facility] Comment:Please note, per www .CDC.gov: If a patient is known to be at high risk of HCV infection, or is symptomatic, and the physician's suspicion of HCV infection is high, HCV RNA testing is often employed and is of diagnostic value, even after an initial negative anti-HCV test result. Blood BLOOD SPECIMEN / Unknown Venipuncture / Unknown 09/12/2023 2:44 PM GAMEPLAY ENGINEER 09/12/2023 2:47 PM GAMEPLAY ENGINEER Joaquina Neves MD SEND OUTS Final Resul t Performing Organization Address [facility] de Phone Number [facility] [address] [place] [address], * ANTI HIV 1/2 (09/12/2023 2:44 PM GAMEPLAY ENGINEER) HIV-1/HIV-2 SCREEN Non-Reacti ve Non-Reacti ve 09/12/2023 10:10 PM GAMEPLAY ENGINEER [facility] Comment:HIV-1 p24 and HIV-1/ HIV-2 Ab Not Detected. Blood BLOOD SPECIMEN / Unknown Venipuncture / Unknown 09/12/2023 2:44 PM GAMEPLAY ENGINEER 09/12/2023 2:47 PM GAMEPLAY ENGINEER Joaquina Neves MD SEND OUTS Final Resul t Performing Organization Address [facility] de Phone Number [facility] [address] [place] [address], * HPV HIGH RISK (03/11/2023 9:15 AM CDT) TYPE 16 Negative Negative 03/14/2023 5:30 AM CDT [facility] TYPE 18 Negative Negative 03/14/2023 5:30 AM CDT [facility] OTHER HIGH RISK TYPES Negative Negative 03/14/2023 5:30 AM CDT [facility] Other (Cervical) Non-Blood / Unknown 03/11/2023 9:15 AM CDT 03/12/2023 12:04 PM CDT Narrative [facility] - 03/14/2023 5:30 AM CDT HPV types 16, 18, 31, 33, 35, 39, 45, 51, 52, 56, 58, 59, 66 and 68 DNA were undetectable or below the pre-set threshold. Methodology: Keila Anaid 4800 HPV Test Zenaida ROTH MICROBIOLOGY Final Resu lt [facility] [address] [place] [address], from Last 3 Months or Most Recently Relevant to Health Maintenance Insurance [phone] [id number] [facility] Advance Directives * Full Code (Latest Code Status on File) Date Activated Date Inactivated Comments 02/13/2020 5:49 PM 02/15/2020 4:58 PM * Full Code Date Activated Date Inactivated Comments 07/03/2011 2:23 AM 07/05/2011 2:49 PM Care Teams Station Helper Relationship Specialty Start Date End Date Joaquina Neves MD [address] [place] [address] PCP - General Family Practice 05/06/23
--- NOTE | 2025-07-18 11:03 | ED.GENADULT ---
HPI - General Adult General Chief complaint: Nausea/Vomiting Stated complaint: vomiting side effect to increase in medication Time Seen by Provider: 07/18/25 10:32 Source: patient Mode of arrival: ambulatory Limitations: no limitations History of Present Illness HPI narrative: 30-year-old female presenting today with vomiting for 4 days. Vomiting started on the same day that patient increased her dose of Wegovy. Patient states that with previous dosage increases she develops significant nausea but never the amount of vomiting that she has had in the last 4 days. She states that she has been trying to sip on Gatorade and Pedialyte but nothing will stay down. She denies any fevers or chills. No chest or abdominal pain. No blood in her vomit. No diarrhea. No urinary symptoms. Related Data Home Medications ?Medication ?Instructions ?Recorded ?Confirmed atorvastatin 20 mg tablet 20 mg PO DAILY 07/16/25 07/18/25 estradiol 0.01% (0.1 mg/gram) vaginal PRN 07/16/25 07/16/25 vaginal cream ferrous gluconate 324 mg (38 mg 324 mg PO DAILY 07/16/25 07/18/25 iron) tablet fluconazole 150 mg tablet 150 mg PO ONCE 07/16/25 07/16/25 semaglutide (weight loss) 1 mg/0.5 1 mg subcut Q7D 07/16/25 07/18/25 mL subcutaneous pen injector (Wegovy) sertraline 100 mg tablet 100 mg PO DAILY 07/16/25 07/18/25 cetirizine 10 mg tablet (Allergy 10 mg PO DAILY PRN 07/18/25 07/18/25 Relief (cetirizine)) Previous Rx's ?Medication ?Instructions ?Recorded ondansetron 4 mg disintegrating 4 mg PO Q8H PRN nausea and 07/16/25 tablet vomiting #30 tabs Allergies Allergy/AdvReac Type Severity Reaction Status Date / Time bee venom protein (honey bee) Allergy Severe Anaphylaxis Verified 07/18/25 10:30 Sulfa (Sulfonamide Allergy Unknown Runs in Verified 07/18/25 10:30 Antibiotics) the Family Review of Systems Status of ROS: Reports: 10 or more systems reviewed and unremarkable except as noted in History and below [facility] Medical History History of vaginal delivery (02/14/20) Observed seizure-like activity (2010) ?R56.9 - Unspecified convulsions (ICD-10) Tibia/fibula fracture ?S82.209A - Unspecified fracture of shaft of unspecified tibia, initial encounter for closed fracture (ICD-10) ?S82.409A - Unspecified fracture of shaft of unspecified fibula, initial encounter for closed fracture (ICD-10) STD (sexually transmitted disease) ?A64 - Unspecified sexually transmitted disease (ICD-10) Social History Smoking Status: Former smoker Do you use any of these nicotine containing products: None Second hand tobacco smoke exposure: No How often do you have a drink containing alcohol: never How often do you have six or more drinks on one occasion: Never AUDIT-C Alcohol total score: 0 Non-prescribed substance use: denies use service: No Exam Narrative: Exam Narrative: Obese, well-developed patient in no acute distress. Alert and oriented. Answers questions appropriately. Mood and affect are appropriate. Thoughts are goal oriented and rational. No tangential or magical thinking noted. HEENT: Normocephalic atraumatic. Pupils are equally round reactive to light. Extraocular muscles are intact. Conjunctivae are moist without any icterus noted. Dry mucous membranes. Posterior pharynx is normal. Cardiovascular: Tachycardic. Lungs: Clear to auscultation bilaterally no wheezes rhonchi or rales are appreciated. Patient takes deep breaths without any discomfort. Abdomen: Soft and nontender nondistended with normal bowel sounds. Extremities: Bilateral lower extremities are without edema. Skin: Well perfused without any obvious rashes. Const: Vital Signs, click to edit/add: Vital Signs - 24 hr 07/18/25 10:21 07/18/25 12:05 Temperature 97.8 F Pulse Rate [Pulse Oximeter] 111 H 90 Respiratory Rate 18 18 Blood Pressure [Ri ght Upper Arm] 116/81 121/82 Pulse Oximetry 98 97 Oxygen Delivery Me thod Room Air Room Air Course Course ED Course: Patient certainly appears dehydrated. IV established and 2 L of normal saline and IV Zofran ordered. Lactate is normal. Blood work does not show significant abnormalities. CBC shows continued hemo concentration. UA positive for hematuria-patient is currently menstruating. Patient feeling much better after treatment. Was tolerating p.o. fluids without difficulty. She was given a prescription for Zofran from the Urgent Care 2 days ago, she has not picked it up. Vital Signs Vital signs: Initial Vital Signs Temperature 97.8 F 07/18/25 10:21 Temperature Source Temporal Artery Scan 07/18/25 10:21 Pulse Rate 111 H 07/18/25 10:21 Pulse Rhythm Regular 07/18/25 10:21 Respiratory Rate 18 07/18/25 10:21 Blood Pressure 116/81 07/18/25 10:21 Blood Pressure Mean 92 07/18/25 10:21 Blood Pressure Position Sitting 07/18/25 10:21 Pulse Oximetry 98 07/18/25 10:21 Oxygen Delivery Method Room Air 07/18/25 10:21 Vital Signs Temperature 97.8 F 07/18/25 10:21 Pulse Rate 111 H 07/18/25 10:21 Respiratory Rate 18 07/18/25 10:21 Blood Pressure 116/81 07/18/25 10:21 Pulse Oximetry 98 07/18/25 10:21 Oxygen Delivery Method Room Air 07/18/25 10:21 Temperature 97.8 F 07/18/25 10:21 Pulse Rate 90 07/18/25 12:05 Respiratory Rate 18 07/18/25 12:05 Blood Pressure 121/82 07/18/25 12:05 Pulse Oximetry 97 07/18/25 12:05 Oxygen Delivery Method Room Air 07/18/25 12:05 Medications Administered Medications: Discontinued Medications Generic Name Dose Route Start Last Admin Trade Name Freq PRN Reason Stop Dose Admin Sodium Chloride 1,000 mls @ 1,000 mls/hr 07/18/25 10:45 07/18/25 11:32 0.9 % Sodium Chloride 1000 Ml IV 07/18/25 11:44 Infused .Q1H JANE Infusion Sodium Chloride 1,000 mls @ 1,000 mls/hr 07/18/25 10:45 07/18/25 11:37 0.9 % Sodium Chloride 1000 Ml IV 07/18/25 11:44 1,000 mls/hr .Q1H JANE Administration Ondansetron HCl 4 mg 07/18/25 10:36 07/18/25 11:04 Ondansetron 2 Mg/Ml Inj IVP 07/18/25 10:37 4 mg ONCE ONE Administration Medical Decision Making MDM Narrative Medical decision making narrative: 30-year-old female with vomiting likely secondary to increased dose of weight loss medication. Presenting with dehydration. Treated per above. Lab Data Lab results reviewed: Yes I reviewed the patient's lab results Labs: Lab Results 07/18/25 07/18/25 Range/Units 10:57 11:30 WBC 9.80 (4.50-11.00) K/uL RBC 5.85 H (4.00-5.20) m/uL Hgb 14.6 (12.0-16.0) gm/dL Hct 44.9 (33.0-51.0) % MCV 77 L (80-100) fL MCH 25 L (26-34) pg MCHC 33 (32-36) gm/dL RDW Coeff of Juancho 17.1 H (11.5-15.5) % Plt Count 421 (140-440) K/uL Neut % (Auto) 73.8 H (42.0-72.0) % Lymph % (Auto) 18.4 L (20-44) % Archer % (Auto) 7.3 (0.0-11.0) % Eos % (Auto) 0.1 (0.0-7.0) % Baso % (Auto) 0.3 (0.0-3.0) % Neut # (Auto) 7.20 H (1.7-7.0) K/uL Lymph # (Auto) 1.80 (0.90-2.90) K/uL Archer # (Auto) 0.70 (0.00-0.90) K/UL Eos # (Auto) 0.01 (0.00-0.50) K/uL Baso # (Auto) 0.03 (0.00-0.30) K/uL Abs Immat Gran (auto) 0.01 (0.00-0.30) K/uL Imm/Tot Granulo (auto) 0.1 % Sodium 138 (135-149) mmol/L Potassium 4.3 (3.6-5.1) mmol/L Chloride 105 (96-114) mmol/L Carbon Dioxide 16 L (20-32) mmol/L Anion Gap 17 H (7-15) mEq/L BUN 23 (5-24) mg/dL Creatinine 0.9 (0.5-1.5) mg/dL Estimated Creat Clear 82.99 Estimated GFR 89 ml/min Glucose 108 (60-115) mg/dL Lactate 1.7 (0.5-1.9) mmol/L Calcium 10.3 (8.4-10.6) mg/dL Magnesium 2.1 (1.5-2.6) mg/dL Total Bilirubin 0.8 (0.1-1.5) mg/dL Direct Bilirubin 0.7 H (0.0-0.5) mg/dL AST 48 H (12-35) U/L ALT 26 (4-35) U/L Alkaline Phosphatase 103 (40-150) U/L Total Protein 9.3 H (6.0-8.3) g/dL Albumin 4.9 (3.3-5.0) g/dL Lipase 182 (23-300) U/L Urine Color Yellow (Yellow) Urine Appearance Slightly Cloudy A (Clear) Urine pH 6.0 (5.0-8.5) Ur Specific [place] >= 1.030 (1.000-1.030) Urine Protein 3+ A (Negative) Urine Glucose (UA) Negative (Negative) Urine Ketones 4+ A (Negative) Urine Blood 3+ A (Negative) Urine Nitrite Negative (Negative) Urine Bilirubin 3+ A (Negative) Urine Urobilinogen 0.2 (0.2-1.0) Ur Leukocyte Esterase Trace A (Negative) Urine RBC 25-50 A (0-2) Urine WBC 5-10 A (0-5) Ur Squamous Epith Cells Many A (None-Few) Amorphous Sediment Moderate A (None) Urine Bacteria Many A (None) Urine HCG, Qual Negative (Negative) Discharge Plan Discharge Clinical Impression: Vomiting, Drug side effects, Dehydration Patient Disposition: Home, Self-Care Condition: Stable Additional Instructions: 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 Continue taking small sips of fluid frequently throughout the day until nausea passes. Do not repeat increased dose of Wegovy- follow-up with your primary doctor before re-dosing. Prescriptions: No Action atorvastatin 20 mg tablet 20 mg PO DAILY fluconazole 150 mg tablet 150 mg PO ONCE sertraline 100 mg tablet 100 mg PO DAILY estradiol 0.01 % (0.1 mg/gram) cream vaginal PRN ferrous gluconate 324 mg (38 mg iron) tablet 324 mg PO DAILY Wegovy 1 mg/0.5 mL pen injector 1 mg subcut Q7D ondansetron 4 mg tablet,disintegrating 4 mg PO Q8H PRN (Reason: nausea and vomiting) Qty: 30 1RF cetirizine [Allergy Relief (cetirizine)] 10 mg tablet 10 mg PO DAILY PRN Follow Up/Referrals: Joaquina Neves MD [Primary Care Provider, Obstetrics] Stand Alone Forms: [employer] Info Instructions
[2025-07-18] MEDS: ONDANSETRON 2 MG/ML inj 4 MG IVP (11:04)
[2025-07-18 11:06] LABS: Lactate* 1.7 mmol/L (0.5-1.9)
[2025-07-18 11:07] LABS: Hematocrit* 44.9 % (33.0-51.0); Hemoglobin* 14.6 gm/dL (12.0-16.0); Immature Granulocytes Abs Auto 0.01 K/uL (0.00-0.30); Immature Granulocytes Pct Auto 0.1 %; Lymphocytes Absolute Auto 1.80 K/uL (0.90-2.90); Mean Corpuscular HGB Conc 33 gm/dL (32-36); Mean Corpuscular Hemoglobin 25 pg (26-34); Mean Corpuscular Volume 77 fL (80-100); RDW Coefficient of Variation % 17.1 % (11.5-15.5); Red Blood Count* 5.85 m/uL (4.00-5.20); White Blood Count* 9.80 K/uL (4.50-11.00)
[2025-07-18 11:14] LABS: Slide Review Reflex No
[2025-07-18 11:26] LABS: Albumin* 4.9 g/dL (3.3-5.0)
[2025-07-18 11:27] LABS: Chloride* 105 mmol/L (96-114); Potassium* 4.3 mmol/L (3.6-5.1); Sodium* 138 mmol/L (135-149)
[2025-07-18 11:29] LABS: Alanine Aminotransferase* 26 U/L (4-35); Anion Gap 17 mEq/L (7-15); Aspartate Amino Transferase* 48 U/L (12-35); Blood Urea Nitrogen* 23 mg/dL (5-24); Carbon Dioxide* 16 mmol/L (20-32); Creatinine* 0.9 mg/dL (0.5-1.5); Est. Creatinine Clearance* 82.99; Estimated Glomerular Filt Rate 89 ml/min
[2025-07-18 11:30] LABS: Alkaline Phosphatase* 103 U/L (40-150); Bilirubin Total* 0.8 mg/dL (0.1-1.5); Calcium* 10.3 mg/dL (8.4-10.6); Glucose* 108 mg/dL (60-115); Total Protein* 9.3 g/dL (6.0-8.3)
[2025-07-18 11:43] LABS: Bilirubin Direct* 0.7 mg/dL (0.0-0.5)
[2025-07-18 11:50] LABS: Appearance Urine Slightly Cloudy (Clear)
[2025-07-18 11:58] LABS: Ur HCG Qualitative* Negative (Negative)
[2025-07-18 12:05] VITALS: BP 121/82; PULSE 90; RESP 18; O2SAT 97
== END 2025-07-18 12:40 | disposition home or self-care (01) ==
PROVIDERS: Emergency Provider Family Medicine; PCP Family Medicine
DX: R11.2 Nausea with vomiting, unspecified (principal); E86.0 Dehydration; T50.995A Adverse effect of other drugs, medicaments and biological substances, initial encounter
CPT/HCPCS: 36415; 80048; 80076; 81001; 81025; 83605; 83690; 83735; 85025; 87086; 96361; 96374; 99284; 99285; J2405; J7030

== ENCOUNTER 2025-08-11 09:38 | Emergency (ER) | payer MEDICAID, SELFPAY ==
[2025-08-11] VITALS (19 sets, daily range): BP systolic 109–129; BP diastolic 54–71; PULSE 83–107; RESP 16–20; TEMP 36.4–36.7; O2SAT 96–99; BMI 35.8
--- OUTSIDE RECORDS SUMMARY | 2025-08-11 09:40 | XMS_ITS | Clinical Summary ---
Author Organization [facility] Address [address] [place] [address] Care Team Providers Care Cnc Maintenance Mechanic Name Role Phone Joaquina Neves MD Primary [...] 3 025 Active semaglutide (weight loss) (Wegovy) 0.5 mg/0.5 mL subcutaneous penIndications:Class 2 severe obesity with body mass index (BMI) of 35 to 39.9 with serious comorbidity Inject 0.5 mg subcutaneous once weekly. 4 mL 025 2025 Active semaglutide (weight loss) (Wegovy) 1 mg/0.5 mL subcutaneous penIndications:Class 2 severe obesity with body mass index (BMI) of 35 to 39.9 with serious comorbidity Inject 1 mg subcutaneous once weekly. 2 mL 025 2024 Disconti nued(*Me d complete /Regimen complete /Level of care change) semaglutide (weight loss) (Wegovy) 1.7 mg/0.75 mL subcutaneous penIndications:Class 2 severe obesity with body mass index (BMI) of 35 to 39.9 with serious comorbidity Inject 1.7 mg subcutaneous once weekly for 28 days. 3 mL 025 2024 Disconti nued(*Me d complete /Regimen complete /Level of care change) Hospital, Clinic, or Other Facility Administered Medication [...] -- Negative HEPCABY -- Non Reactive Comment [id number] -- Non Reactive VZIGGABY -- 228.9 Positive [...] Encounters Date Type Department Care Team Description 07/28/2025 10:00 AM CDT Office Visit [facility] [address] [place] [address] Joaquina Neves MD Weight (change wegovy) 07/28/2025 Travel 07/26/2025 Travel 07/18/2025 Nurse Triage [facility] [address] [place] [address] Joaquina Neves MD Abdominal Pain 07/13/2025 11:15 AM CDT Office Visit [facility] [address] [place] [address] Joaquina Neves MD Follow Up (weight loss) 07/12/2025 Travel 06/02/2025 10:25 AM CDT Office Visit [facility] [address] [place] [address] Joaquina Neves MD IUD (string check); Medication Management (wegovy) 06/01/2025 Travel from Last 3 Months Immunizations Immunization Administration [...] Relation Name Comments Autism Brother [address] [facility] Brother 1 Samson Autism Brother [address] [facility] Brother 2 Aiden Febrile seizures Daughter Melisa [...] Answer Date Recorded PHQ-2 TOTAL SCORE 1 07/28/2025 Social Connections Answer Date Recorded Do you [...] Sex Assigned at Female 11/21/2020 2:44 PM EMERY WHEEL MOLDER Legal Sex Female 7:41 AM EMERY WHEEL MOLDER Gender Identity Female 11/21/2020 2:44 PM EMERY WHEEL MOLDER Sexual Orientation Bisexual 11/21/2020 2: 44 PM EMERY WHEEL MOLDER Obstetrics History Para Term AB IAB SAB [...] RTY,B G LINNEA S Dumer mayelin Delivery Location:[facility] 3 IAB 8w0 d ELECTI VE AB 3 IAB Last Filed Vital Signs Vital Sign Reading Time Taken Comments Blood Pressure 101/68 07/28/2025 10:07 AM CDT Pulse 95 07/28/2025 10:07 AM CDT Temperature 37.1 C (98.8 F) 07/28/2025 10:07 AM CDT Respiratory Rate 16 02/15/2020 8:07 AM CDT Oxygen Saturation 98% 07/28/2025 10: 07 AM CDT Inhaled Oxygen Concentration - - Weight 102.8 kg (226 lb 9.6 oz) 025 10:07 AM CDT Height 167.6 cm (5' 6) 07/28/2025 10:0 7 AM CDT Body Mass Index 36.57 07/28/2025 10:07 AM CDT Plan of Treatment Upcoming Encounters Date Type Department Care Team (Late st Contact Info) Description 08/15/2025 7:30 AM EMERY WHEEL MOLDER Office Visit [facility] [address] [place] [address] Joaquina Neves MD [address] [place] [address] 08/17/2025 12:30 PM EMERY WHEEL MOLDER Office Visit [facility] [address] [place] [phone] Kevin Mustafa PsyD, LP [address] [place] [address] 08/24/2025 12:30 PM EMERY WHEEL MOLDER Office Visit [facility] [address] [place] [phone] Kevin Mustafa, ShalomyD, LP [address] [place] [address] Health Maintenance Due Date Last Done Comments Influenza Vaccine (#1) 2025 , 08/02/2019, 08/02/2019, Additional history exists BMI (ht and wt on same day) for age 18+ 07/28/2026 07/28/2025, 07/13/2025, 09/08/2024, Additional history exists Depression screening for age 12+ 07/28/2026 07/28/2025, 05/05/2025 Pap test for age 21-65 03/11/2028 , [...] Procedure Name Priority Date/Time Associated Diagnosis Comments ANTI HIV 1/2 Routine 09/12/2023 2:44 PM EMERY WHEEL MOLDER Encounter for supervision of other normal in first trimester (HC) ANTI HCV Routine 09/12/2023 2:44 PM EMERY WHEEL MOLDER Encounter for supervision of other normal in first trimester (HC) HPV HIGH RISK Routine 03/11/2023 9:15 AM CDT Screening for malignant neoplasm of the cervix from Last 3 Months or Most Recently Relevant to Health Maintenance Results * ANTI HCV (09/12/2023 2:44 PM EMERY WHEEL MOLDER) HEPATITIS C ANTIBODY Non-Reacti ve Non-React blanka 09/12/2023 10:08 PM EMERY WHEEL MOLDER [facility] Comment:Please note, per www .CDC.gov: If a patient is known to be at high risk of HCV infection, or is symptomatic, and the physician's suspicion of HCV infection is high, HCV RNA testing is often employed and is of diagnostic value, even after an initial negative anti-HCV test result. Blood BLOOD SPECIMEN / Unknown Venipuncture / Unknown 09/12/2023 2:44 PM EMERY WHEEL MOLDER 09/12/2023 2:47 PM EMERY WHEEL MOLDER Joaquina Neves MD SEND OUTS Final Resul t Performing Organization Address City/[facility] Co de Phone Number [facility] [address] [place] [address], * ANTI HIV 1/2 (09/12/2023 2:44 PM EMERY WHEEL MOLDER) HIV-1/HIV-2 SCREEN Non-Reacti ve Non-Reacti ve 09/12/2023 10:10 PM EMERY WHEEL MOLDER [facility] Comment:HIV-1 p24 and HIV-1/ HIV-2 Ab Not Detected. Blood BLOOD SPECIMEN / Unknown Venipuncture / Unknown 09/12/2023 2:44 PM EMERY WHEEL MOLDER 09/12/2023 2:47 PM EMERY WHEEL MOLDER us Joaquina Neves MD SEND OUTS Final Resul t Performing Organization Address City/[facility] Co de Phone Number [facility] [address] [place] [address], * HPV HIGH RISK (03/11/2023 9:15 AM CDT) TYPE 16 Negative Negative 03/14/2023 5:30 AM CDT [facility] TYPE 18 Negative Negative 03/14/2023 5:30 AM CDT [facility] OTHER HIGH RISK TYPES Negative Negative 03/14/2023 5:30 AM CDT [facility] Other (Cervical) Non-Blood / Unknown 03/11/2023 9:15 AM CDT 03/12/2023 12:04 PM CDT Narrative [facility] - 03/14/2023 5:30 AM CDT HPV types 16, 18, 31, 33, 35, 39, 45, 51, 52, 56, 58, 59, 66 and 68 DNA were undetectable or below the pre-set threshold. Methodology: [employer] Anaid 4800 HPV Test Zenaida ROTH MICROBIOLOGY Final Resu lt [facility] [address] [place] [address], from Last 3 Months or Most Recently Relevant to Health Maintenance Insurance [facility] Advance Directives * Full Code (Latest Code Status on File) Date Activated Date Inactivated Comments 02/13/2020 5:49 PM 02/15/2020 4:58 PM * Full Code Date Activated Date Inactivated Comments 07/03/2011 2:23 AM 07/05/2011 2:49 PM Care Teams Cnc Maintenance Mechanic Relationship Specialty Start Date End Date Joaquina Neves MD [address] [facility] [address] PCP - General Family Practice 05/06/23
--- NOTE | 2025-08-11 10:13 | ED.ABDPAIN ---
HPI - Abdominal Pain General Date Seen: 08/11/25 Chief Complaint: Abdominal Pain Stated Complaint: Vomiting, abdominal pain Time Seen by Provider: 08/11/25 09:55 Source: patient, family, RN notes reviewed and old records reviewed Mode of arrival: ambulatory Limitations: no limitations History of Present Illness HPI narrative: Patient is a delightful 30-year-old female who presents here with the left-sided and periumbilical abdominal pain, and colicky type symptoms associated with vomiting, for the last 4-5 days. She takes will go be, went up to a 1 mg dose, but found the discomfort worsen, and then drop down 0.5 mg. She has had further left-sided abdominal pain associated with nausea vomiting since. She has had previous visits for dehydration secondary to vomiting, she has a history of GE reflux. Pain does radiate to her left flank region associated with this. She is not taking any pain medications or twxl-gos-mowtiji medications adjust took her normal omeprazole and some Zofran that she had both from her primary in of previous ER visit. No history of any change in her bowel movements. She denies any vomiting up any blood, or coffee-grounds. No fevers chills sore throat, chest discomfort, shortness of breath, recent travel history and no one else sick around her. She does have a history however of hyperemesis with previous . She denies being currently, is sexually active with 1 partner and she is here with her . She is noted to have IUD. No previous endoscopies done. History of depression anxiety, No history of recent tobacco use, no history of recent marijuana use in the last 6 years, no alcohol use, [id number] mom. No previous abdominal surgeries. Related Data Home Medications ?Medication ?Instructions ?Recorded ?Confirmed atorvastatin 20 mg tablet 20 mg PO DAILY 07/16/25 07/18/25 estradiol 0.01% (0.1 mg/gram) vaginal PRN 07/16/25 07/16/25 vaginal cream ferrous gluconate 324 mg (38 mg 324 mg PO DAILY 07/16/25 07/18/25 iron) tablet fluconazole 150 mg tablet 150 mg PO ONCE 07/16/25 07/16/25 semaglutide (weight loss) 1 mg/0.5 1 mg subcut Q7D 07/16/25 07/18/25 mL subcutaneous pen injector (Wegiselavy) sertraline 100 mg tablet 100 mg PO DAILY 07/16/25 07/18/25 cetirizine 10 mg tablet (Allergy 10 mg PO DAILY PRN 07/18/25 07/18/25 Relief (cetirizine)) Previous Rx's ?Medication ?Instructions ?Recorded ondansetron 4 mg disintegrating 4 mg PO Q8H PRN nausea and 07/16/25 tablet vomiting #30 tabs cephalexin 500 mg capsule 500 mg PO BID #14 caps 08/11/25 omeprazole 40 mg capsule,delayed 40 mg PO DAILY #30 caps 08/11/25 release Allergies Allergy/AdvReac Type Severity Reaction Status Date / Time bee venom protein (honey bee) Allergy Severe Anaphylaxis Verified 08/11/25 11:39 Sulfa (Sulfonamide Allergy Unknown Runs in Verified 08/11/25 11:39 Antibiotics) the Family Review of Systems Status of ROS Reports: 10 or more systems reviewed and unremarkable except as noted in History and below [facility] Medical History History of vaginal delivery (02/14/20) Observed seizure-like activity (2010) ?R56.9 - Unspecified convulsions (ICD-10) Tibia/fibula fracture ?S82.209A - Unspecified fracture of shaft of unspecified tibia, initial encounter for closed fracture (ICD-10) ?S82.409A - Unspecified fracture of shaft of unspecified fibula, initial encounter for closed fracture (ICD-10) STD (sexually transmitted disease) ?A64 - Unspecified sexually transmitted disease (ICD-10) Social History Smoking Status: Former smoker Do you use any of these nicotine containing products: None Second hand tobacco smoke exposure: No How often do you have a drink containing alcohol: never How often do you have six or more drinks on one occasion: Never AUDIT-C Alcohol total score: 0 Non-prescribed substance use: denies use service: No Exam Narrative: Exam Narrative: On examination in room 6, she is in no apparent distress. Pupils are equal round reactive to light there is no scleral icterus redness, lips are very dry, oropharynx is dry also, throat is slightly reddened, but not overly redness such as the strep for a viral pharyngitis, no exudates are noted there is no lymphadenopathy anterior posterior chains, her TMs are normal, cranial nerves 3-12 are normal, no meningismus. Her chest is good air entry bilaterally with no wheezing crackles noted her heart sounds are normal, her abdomen shows some hoeg-fc-smetamnf tenderness on the left side of her abdomen. There is no peritoneal signs bowel sounds are quiet, negative Pineda's test, no lower abdominal masses noted hernias, no CVA tenderness, moves all extremities independently and well, good skin turgor. No rashes Const: Vital Signs, click to edit/add: Vital Signs - 24 hr 08/11/25 09:49 08/11/25 10:30 08/11/25 10:31 Temperature 97.6 F Pulse Rate 84 86 Pulse Rate [Pulse Oximeter] 99 Respiratory Rate 20 Blood Pressure 112/54 L 109/60 Blood Pressure [Ri ght Upper Arm] 113/71 Pulse Oximetry 97 96 96 Oxygen Delivery Me thod Room Air 08/11/25 10:32 08/11/25 10:45 08/11/25 11:01 Temperature Pulse Rate 83 84 85 Pulse Rate [Pulse Oximeter] Respiratory Rate 16 Blood Pressure 113/65 Blood Pressure [Ri ght Upper Arm] Pulse Oximetry 96 97 97 Oxygen Delivery Me thod 08/11/25 11:02 08/11/25 11:15 08/11/25 11:35 Temperature Pulse Rate 86 85 95 Pulse Rate [Pulse Oximeter] Respiratory Rate Blood Pressure Blood Pressure [Ri ght Upper Arm] Pulse Oximetry 98 97 97 Oxygen Delivery Me thod 08/11/25 11:45 Temperature Pulse Rate 107 H Pulse Rate [Pulse Oximeter] Respiratory Rate Blood Pressure Blood Pressure [Ri ght Upper Arm] Pulse Oximetry 98 Oxygen Delivery Me thod Documenting provider has reviewed patient's vital signs: yes Course Course ED Course: I discussed with her, we will give her some Ancef here, which is good broad-spectrum coverage for UTI/early possible kidney infection. Continue her on Keflex for 7 days. Along with increasing her proton pump inhibitor, think follow-up with her primary care physician to talk about maybe switching that Wegovy is some other G LP 1 would also be appropriate. Vital Signs Vital signs: Initial Vital Signs Temperature 97.6 F 08/11/25 09:49 Temperature Source Temporal Artery Scan 08/11/25 09:49 Pulse Rate 99 08/11/25 09:49 Respiratory Rate 20 08/11/25 09:49 Blood Pressure 113/71 08/11/25 09:49 Blood Pressure Mean 85 08/11/25 09:49 Blood Pressure Position Sitting 08/11/25 09:49 Pulse Oximetry 97 08/11/25 09:49 Oxygen Delivery Method Room Air 08/11/25 09:49 Vital Signs Temperature 97.6 F 08/11/25 09:49 Pulse Rate 99 08/11/25 09:49 Respiratory Rate 20 08/11/25 09:49 Blood Pressure 113/71 08/11/25 09:49 Pulse Oximetry 97 08/11/25 09:49 Oxygen Delivery Method Room Air 08/11/25 09:49 Temperature 97.6 F 08/11/25 09:49 Pulse Rate 107 H 08/11/25 11:45 Respiratory Rate 16 08/11/25 11:01 Blood Pressure 113/65 08/11/25 11:01 Pulse Oximetry 98 08/11/25 11:45 Oxygen Delivery Method Room Air 08/11/25 09:49 Medications Administered Medications: Discontinued Medications Generic Name Dose Route Start Last Admin Trade Name Freq PRN Reason Stop Dose Admin Sodium Chloride 1,000 mls @ 1,000 mls/hr 08/11/25 10:15 08/11/25 11:46 0.9 % Sodium Chloride 1000 Ml IV 08/11/25 11:14 Infused .Q1H JANE Infusion Sodium Chloride 1,000 mls @ 1,000 mls/hr 08/11/25 10:15 08/11/25 11:46 0.9 % Sodium Chloride 1000 Ml IV 08/11/25 11:14 1,000 mls/hr .Q1H JANE Administration Cefazolin Sodium 1 gm/ Sodium 100 mls @ 200 mls/hr 08/11/25 12:08 08/11/25 12:21 Chloride IVPB 08/11/25 12:09 200 mls/hr ONCE ONE Administration Ondansetron HCl 4 mg 08/11/25 10:10 08/11/25 10:26 Ondansetron 2 Mg/Ml Inj IVP 08/11/25 10:11 4 mg ONCE ONE Administration Pantoprazole Sodium 40 mg 08/11/25 12:08 08/11/25 12:22 Pantoprazole Sodium 40 Mg Inj IVP 08/11/25 12:09 40 mg ONCE ONE Administration MDM - Abdominal Pain MDM Narrative Medical decision making narrative: During the evaluation of this patient I considered multiple differential diagnosis including life-threatening differentials which are appendicitis, aortic aneurysm, mesenteric ischemia, bowel perforation, ectopic , volvulus and bowel obstruction, other differential diagnosis include but are not limited to inflammatory bowel disease, cholecystitis, pancreatitis, hepatitis, gastritis, GERD, diverticulitis, peptic ulcer disease, pyelonephritis/UTI, renal colic/stone, pelvic inflammatory disease, cervicitis, endometritis, intrauterine , dysfunctional uterine bleeding, ovarian cyst/torsion, spontaneous as well as other etiologies I do think the most likely cause of her vomiting is related to her will go be. But I think given her left-sided discomfort, other possibilities half to be entertained here, we have decided through shared decision making to use an IV fluids, start with some Zofran, she did want any pain medications to start with. And we will check some labs, and likely go with a CT scan with or without contrast depending on the labs. They were comfortable with this plan. Medical Records Attestation: I reviewed the patient's medical records. Lab Data Attestation: I reviewed the patient's lab results. Labs: Lab Results 08/11/25 08/11/25 Range/Units 10:20 11:05 WBC 6.71 (4.50-11.00) K/uL RBC 5.04 (4.00-5.20) m/uL Hgb 13.1 (12.0-16.0) gm/dL Hct 41.0 (33.0-51.0) % MCV 81 (80-100) fL MCH 26 (26-34) pg MCHC 32 (32-36) gm/dL RDW Coeff of Juancho 16.6 H (11.5-15.5) % Plt Count 297 (140-440) K/uL Neut % (Auto) 78.1 H (42.0-72.0) % Lymph % (Auto) 16.1 L (20-44) % [place] % (Auto) 5.7 (0.0-11.0) % Eos % (Auto) 0.0 (0.0-7.0) % Baso % (Auto) 0.1 (0.0-3.0) % Neut # (Auto) 5.20 (1.7-7.0) K/uL Lymph # (Auto) 1.10 (0.90-2.90) K/uL [place]ne # (Auto) 0.40 (0.00-0.90) K/UL Eos # (Auto) 0.00 (0.00-0.50) K/uL Baso # (Auto) 0.01 (0.00-0.30) K/uL Abs Immat Gran (auto) 0.00 (0.00-0.30) K/uL Imm/Tot Granulo (auto) 0.0 % Sodium 138 (135-149) mmol/L Potassium 4.1 (3.6-5.1) mmol/L Chloride 103 (96-114) mmol/L Carbon Dioxide 24 (20-32) mmol/L Anion Gap 11 (7-15) mEq/L BUN 12 (5-24) mg/dL Creatinine 0.7 (0.5-1.5) mg/dL Estimated Creat Clear 106.71 Estimated GFR 120 ml/min Glucose 83 (60-115) mg/dL Calcium 9.6 (8.4-10.6) mg/dL Total Bilirubin 0.8 (0.1-1.5) mg/dL Direct Bilirubin 0.6 H (0.0-0.5) mg/dL AST 26 (12-35) U/L ALT 27 (4-35) U/L Alkaline Phosphatase 74 (40-150) U/L Total Protein 8.1 (6.0-8.3) g/dL Albumin 4.6 (3.3-5.0) g/dL Amylase 81 (18-89) U/L Lipase 95 (23-300) U/L HCG, Qual Negative (Negative) Urine Color Yellow (Yellow) Urine Appearance Clear (Clear) Urine pH 6.0 (5.0-8.5) Ur Specific [place] >= 1.030 (1.000-1.030) Urine Protein 1+ A (Negative) Urine Glucose (UA) Negative (Negative) Urine Ketones 4+ A (Negative) Urine Blood 2+ A (Negative) Urine Nitrite Negative (Negative) Urine Bilirubin 2+ A (Negative) Urine Urobilinogen 0.2 (0.2-1.0) Ur Leukocyte Esterase Trace A (Negative) Urine RBC 25-50 A (0-2) Urine WBC 10-25 A (0-5) Ur Squamous Epith Cells Moderate A (None-Few) Urine Bacteria Moderate A (None) Results were reassuring, there is evidence of mild UTI, which may possibly be causing some of her vomiting, will discuss with her treatment with antibiotics. Also evidence of a ketosis if likely a starvation/dehydration. There is a small amount of hematuria also, patient tells me that she always has likely from the IUD, reassuring that the CT scan did not show any evidence of anything significant. Imaging Data CT scan - abdomen: Attestation: I have reviewed the pertinent imaging results. My impression: No evidence of an acute abnormality, IUDs placement is noted. Radiologist's impression: [place] [address] Diagnostic Imaging Report Patient: Dario Zhang MR#: [id number] : 1995 Acct:[id number] Loc: ED Service Date: 08/11/[address]: Ordering Physician: Monico Muller M.D. Date of Service: 08/11/25 Procedure(s): CT abdomen pelvis w con Accession Number(s): [id number] cc: Joaquina Neves M.D.; Monico Muller M.D.~ For Patients: As a result of the Cures Act, medical imaging exams and procedure reports are released immediately into your electronic medical record. You may view this report before your referring provider. If you have questions, please contact your health care provider. INDICATION: Left-sided abdominal pain. Vomiting for 5-6 days COMPARISON: None TECHNIQUE: CT examination of the abdomen and pelvis was performed following the uneventful intravenous administration of 106 cc of Isovue 370. Thin section axial images were obtained from the lung bases through the pubic symphysis. Oral contrast was not administered. Please note that all CT scans at this facility use dose modulation, iterative reconstruction, and/or weight-based dosing when appropriate to reduce radiation dose to as low as reasonably achievable. FINDINGS: LUNG BASES: The lung bases as visualized appear normal.The heart size is normal at the lung bases. LIVER/BILIARY SYSTEM:The liver is normal in size and configuration. There is no focal mass and there is no intra- or extra hepatic biliary ductal dilatation.Gallbladder appears normal. Incidental Phrygian cap. ADRENALS: Normal KIDNEYS, URETERS and BLADDER:The kidneys appear normal. No visible mass, calculus or hydronephrosis. The ureters and bladder as visualized appear normal. SPLEEN:Normal appearance. PANCREAS: Appears normal. RETROPERITONEUM and MESENTERY: There is no mass, adenopathy or aortic aneurysm. GASTROINTESTINAL SYSTEM: There is no evidence of diverticulitis, colitis, mechanical obstruction, or appendicitis. The small bowel as visualized appears normal. PELVIS: No mass or adenopathy.An IUD appears to be normally located. Trace free fluid in the pelvis likely physiologic OSSEOUS STRUCTURES and ABDOMINAL WALL: There is an age-appropriate appearance of the osseous structures.No significant abdominal wall defect. OTHER: No free air IMPRESSION: No visible cause for pain and vomiting. Incidental nonacute appearing findings as above. Please note that all CT scans at this facility use dose modulation, iterative reconstruction, and/or weight-based dosing when appropriate to reduce radiation dose to as low as reasonably achievable. Dictated by Neville Ramirez MD @ 08/11/2025 11:44:44 AM (Electronically Signed) Discharge Plan Discharge Clinical Impression: Abdominal pain, Vomiting, Acute dehydration, Adverse drug effect, UTI (urinary tract infection) Patient Disposition: Home w/ Parent or Adult Condition: Stable Instructions: Dehydration (DC), Urinary Tract Infection in Women (DC), Acute Nausea and Vomiting (DC), Acute Abdominal Pain (DC) Additional Instructions: As I discussed with you, there is evidence of a slight urinary tract infection I do think treatment given what is happening with her vomiting would be a great idea we will give your 1st dose antibiotics here and then give you a prescription for the next 7 days. I will also give you a dose of Protonix here which is the IV form of your omeprazole. We will increase this also as an outpatient I suggest he go to 40 mg a day of omeprazole. Following up with her provider to discuss a couple things also be helpful, possibly switching your G LP 1 medication as I do think this is likely cause of your vomiting. The other thing is maybe referral for an endoscopy just to take a look at her stomach, as that history of reflux coupled with the vomiting. Slow increase in her diet is also suggested from clear fluids to as tolerated. Increasing fevers chills increasing pain or change in her pain pattern should prompt a re-evaluation. Activity Level: Light activity Discharge Diet: Clear Liquid Prescriptions: New cephalexin 500 mg capsule 500 mg PO BID Qty: 14 0RF omeprazole 40 mg capsule,delayed release(DR/EC) 40 mg PO DAILY Qty: 30 2RF No Action atorvastatin 20 mg tablet 20 mg PO DAILY fluconazole 150 mg tablet 150 mg PO ONCE sertraline 100 mg tablet 100 mg PO DAILY estradiol 0.01 % (0.1 mg/gram) cream vaginal PRN ferrous gluconate 324 mg (38 mg iron) tablet 324 mg PO DAILY Wegovy 1 mg/0.5 mL pen injector 1 mg subcut Q7D ondansetron 4 mg tablet,disintegrating 4 mg PO Q8H PRN (Reason: nausea and vomiting) Qty: 30 1RF cetirizine [Allergy Relief (cetirizine)] 10 mg tablet 10 mg PO DAILY PRN Follow Up/Referrals: Joaquina Neves MD [Primary Care Provider, Obstetrics] Stand Alone Forms: [facility] Info Instructions
[2025-08-11] MEDS: ONDANSETRON 2 MG/ML inj 4 MG IVP (10:26)
[2025-08-11 10:30] LABS: Hematocrit* 41.0 % (33.0-51.0); Hemoglobin* 13.1 gm/dL (12.0-16.0); Immature Granulocytes Abs Auto 0.00 K/uL (0.00-0.30); Immature Granulocytes Pct Auto 0.0 %; Mean Corpuscular HGB Conc 32 gm/dL (32-36); Mean Corpuscular Hemoglobin 26 pg (26-34); Mean Corpuscular Volume 81 fL (80-100); RDW Coefficient of Variation % 16.6 % (11.5-15.5); Red Blood Count* 5.04 m/uL (4.00-5.20); White Blood Count* 6.71 K/uL (4.50-11.00)
[2025-08-11 10:34] LABS: Lymphocytes Absolute Auto 1.10 K/uL (0.90-2.90); Slide Review Reflex No
[2025-08-11 10:45] LABS: Albumin* 4.6 g/dL (3.3-5.0); Chloride* 103 mmol/L (96-114); Potassium* 4.1 mmol/L (3.6-5.1); Sodium* 138 mmol/L (135-149)
[2025-08-11 10:48] LABS: Alanine Aminotransferase* 27 U/L (4-35); Alkaline Phosphatase* 74 U/L (40-150); Anion Gap 11 mEq/L (7-15); Aspartate Amino Transferase* 26 U/L (12-35); Bilirubin Direct* 0.6 mg/dL (0.0-0.5); Bilirubin Total* 0.8 mg/dL (0.1-1.5); Blood Urea Nitrogen* 12 mg/dL (5-24); Calcium* 9.6 mg/dL (8.4-10.6); Carbon Dioxide* 24 mmol/L (20-32); Creatinine* 0.7 mg/dL (0.5-1.5); Est. Creatinine Clearance* 106.71; Estimated Glomerular Filt Rate 120 ml/min; Glucose* 83 mg/dL (60-115); Total Protein* 8.1 g/dL (6.0-8.3)
[2025-08-11 11:03] LABS: HCG Qualitative Serum* Negative (Negative)
--- NOTE | 2025-08-11 11:07 | CRLHL7_ITS ---
For Patients: As a result of the Century Cures Act, medical imaging exams and procedure reports are released immediately into your electronic medical record. You may view this report before your referring provider. If you have questions, please contact your health care provider. INDICATION: Left-sided abdominal pain. Vomiting for 5-6 days COMPARISON: None TECHNIQUE: CT examination of the abdomen and pelvis was performed following the uneventful intravenous administration of 106 cc of Isovue 370. Thin section axial images were obtained from the lung bases through the pubic symphysis. Oral contrast was not administered. Please note that all CT scans at this facility use dose modulation, iterative reconstruction, and/or weight-based dosing when appropriate to reduce radiation dose to as low as reasonably achievable. FINDINGS: LUNG BASES: The lung bases as visualized appear normal.The heart size is normal at the lung bases. LIVER/BILIARY SYSTEM:The liver is normal in size and configuration. There is no focal mass and there is no intra- or extra hepatic biliary ductal dilatation.Gallbladder appears normal. Incidental Phrygian cap. ADRENALS: Normal KIDNEYS, URETERS and BLADDER:The kidneys appear normal. No visible mass, calculus or hydronephrosis. The ureters and bladder as visualized appear normal. SPLEEN:Normal appearance. PANCREAS: Appears normal. RETROPERITONEUM and MESENTERY: There is no mass, adenopathy or aortic aneurysm. GASTROINTESTINAL SYSTEM: There is no evidence of diverticulitis, colitis, mechanical obstruction, or appendicitis. The small bowel as visualized appears normal. PELVIS: No mass or adenopathy.An IUD appears to be normally located. Trace free fluid in the pelvis likely physiologic OSSEOUS STRUCTURES and ABDOMINAL WALL: There is an age-appropriate appearance of the osseous structures.No significant abdominal wall defect. OTHER: No free air IMPRESSION: No visible cause for pain and vomiting. Incidental nonacute appearing findings as above. Please note that all CT scans at this facility use dose modulation, iterative reconstruction, and/or weight-based dosing when appropriate to reduce radiation dose to as low as reasonably achievable. Dictated by Neville Ramirez MD @ 08/11/2025 11:44:44 AM (Electronically Signed)
[2025-08-11 11:15] LABS: Appearance Urine Clear (Clear)
[2025-08-11] MEDS: CEFAZOLIN 1 GM in 0.9 % SODIUM CHLORIDE Mini-bag 100 ML IVPB (12:21)
[2025-08-11] MEDS: PANTOPRAZOLE SODIUM 40 MG INJ IVP (12:22)
[2025-08-11] MEDS: LACTATED RINGERS 1000 ML 1,000 ML IV (12:39)
== END 2025-08-11 13:32 | disposition home or self-care (01) ==
PROVIDERS: Emergency Provider Family Medicine; PCP Family Medicine
DX: R10.9 Unspecified abdominal pain (principal); T50.995A Adverse effect of other drugs, medicaments and biological substances, initial encounter; R11.2 Nausea with vomiting, unspecified; E86.0 Dehydration; N39.0 Urinary tract infection, site not specified
CPT/HCPCS: 36415; 74177; 80048; 80076; 81001; 82150; 83690; 84703; 85025; 87086; 96361; 96365; 96375; 99284; 99285; J0690; J2405; J2470; J7030; J7120; Q9967